=== PATIENT | male | born 1970 | race Caucasian/White ===

== ENCOUNTER 2023-03-14 19:36 | Emergency (ER) | payer OTHER, SELFPAY ==
[2023-03-14 19:41] VITALS: BP 156/87; PULSE 73; RESP 16; TEMP 36.7; O2SAT 98; BMI 34.7
--- NOTE | 2023-03-14 19:51 | CT_ITS ---
The [address] [address] Patient Name: FERDINAND BAKER MRN: [id number] date: 1970 Sex: M Assigned Patient Location: ER Current Patient Location: ED.MAIN Accession/Order Number: [id number] Exam Date: 03/14/2023 20:25 Report Date: 03/14/2023 21:12 At the request of: RANGEL DE LA CRUZ Procedure: CT abdomen pelvis w con EXAM: CT abdomen pelvis w con HISTORY: llq pain, h/o diverticulitis COMPARISON: None. TECHNIQUE: Multiple images of the abdomen and pelvis are obtained following the administration of IV contrast material. Coronal and sagittal reformatted sequences are submitted for review. FINDINGS: The lung bases appear clear. The heart size is normal. Patient is post cholecystectomy. Surgical clips are seen in the gallbladder fossa. The liver, spleen, pancreas and bilateral adrenal glands appear unremarkable. Small parapelvic left renal cysts are likely seen. Bilateral kidneys otherwise demonstrate normal size, morphology and contrast enhancement. There is no evidence for hydronephrosis bilaterally. Mild diffuse wall thickening of the urinary bladder is seen, which can be seen with mild inflammatory process. Please correlate clinically. Nonobstructive bowel pattern is seen. Normal-appearing appendix is visualized. Scattered descending and sigmoid colonic diverticula are seen. Mild wall thickening of the descending and sigmoid colon is also seen, which represent mild colitis versus less likely diverticulitis. No significant free fluid or abnormal fluid collection is seen in the abdomen and pelvis. Mild aortic and iliac arterial calcification is seen without aneurysmal dilatation. Abdominal wall and visualized soft tissues appear unremarkable. Mild multilevel degenerative changes of the visualized thoracolumbar spine is seen. IMPRESSION: Scattered descending and sigmoid colonic diverticula are seen. Mild wall thickening of the descending and sigmoid colonic is seen, which represent mild colitis versus less likely mild diverticulitis. Mild wall thickening of the urinary bladder may be seen, which can be seen with mild inflammatory process. Please correlate clinically. Electronically authenticated by: YVONNE MENARD Date: 03/14/2023 21:12
[2023-03-14 19:56] LABS: Basophils Absolute Auto 0.1 10^3/uL (0.0-0.1); Basophils Percent Auto 0.7 % (0.2-2.0); Eosinophils Absolute Auto 0.1 10^3/uL (0.0-0.7); Eosinophils Percent Auto 1.3 % (0.9-7.0); Hematocrit 43.9 % (42.0-54.0); Hemoglobin 15.2 g/dL (14.0-18.0); Immature Granulocytes Abs Auto 0.02 10^3/uL (0.00-0.03); Immature Granulocytes Pct Auto 0.3 % (0.0-0.5); Mean Corpuscular HGB Conc 34.6 g/dL (29.9-35.2); Mean Corpuscular Hemoglobin 30.7 pg (25.9-34.0); Mean Corpuscular Volume 88.7 fL (80.0-94.0); Mean Platelet Volume 9.5 fL (9.5-13.5); Monocytes Absolute Auto 0.3 10^3/uL (0.3-0.8); Monocytes Percent Auto 4.5 % (1.7-12.0); Neutrophils Absolute Auto 5.1 10^3/uL (1.4-6.5); Neutrophils Percent Auto 67.2 % (43.0-75.0); Platelet Count 231 10^3/uL (150-450); Red Blood Count 4.95 10^6/uL (4.70-6.10); Red Cell Distribution Width 11.8 % (11.0-15.0); White Blood Count 7.6 10^3/uL (4.0-11.0)
--- NOTE | 2023-03-14 19:56 | ED_ITS ---
Documented by User: Chary Mahogany 04/11/23 13:08 HPI - Abdominal Pain General Chief Complaint: Abdominal Pain Stated Complaint: ABDOMINAL PAIN Time Seen by Provider: 03/14/23 19:39 Source: patient Mode of arrival: walk-in Limitations: no limitations History of Present Illness HPI narrative: 53 male presents her chief complaint of generalized lower abdominal pain. He does have a history of diverticulitis. States she's had the pain for last 2-3 days. Normal bowel movements today.Patient states she's been eating a lot of junk food a picnic food due to the holidays. He is here is he had generalized aches today was concern for diverticulitis Related Data Home Medications Medication Instructions Recorded Confirmed dextroamphetamine-amphetamine ER 20 mg PO DAILY 03/14/23 03/14/23 20 mg 24hr capsule,extend release mirtazapine 45 mg disintegrating 45 mg PO .hs 03/14/23 03/14/23 tablet (Remeron SolTab) omeprazole 40 mg capsule,delayed 40 mg PO DAILY 03/14/23 03/14/23 release temazepam 30 mg capsule 30 mg PO .hs PRN sleep 03/14/23 03/14/23 warfarin 5 mg tablet 5 mg PO DAILY 03/14/23 03/14/23 Previous Rx's Medication Instructions Recorded ondansetron 4 mg disintegrating 4 mg PO Q8H PRN nausea and 03/14/23 tablet vomiting 4 days #14 tabs Allergies Allergy/AdvReac Type Severity Reaction Status Date / Time Penicillins AdvReac Mild Verified 03/14/23 19:48 Review of Systems ROS Narrative All Systems are negative except as noted/marked.All systems reviewed and otherwise negative [facility] Social History Smoking status: Former smoker Exam Narrative Exam Narrative: Nurses note and vital signs reviewed and patient is not hypoxic. General: The patient appears well and in no apparent distress. Patient is resting comfortably on cart. Skin: Warm, dry, no pallor noted. There is no rash noted. Head: Normocephalic, atraumatic Eye: Normal conjunctiva, no drainage, EOMI. PERRL Ears, Nose, Mouth, and Throat: oral mucosa is moist. Nares patent. Mouth without vesicles. Ear canals patent. Tm's without Erythema Cardiovascular: Regular Rate and Rhythm Respiratory: Patient is in no distress, no accessory muscle use, lungs are clear to auscultation, no wheezing, rales or rhonchi Back: non-tender, no CVA tenderness bilaterally to percussion. GI: Distended, obese, Normal bowel sounds, no tenderness to palpation, no masses appreciated. No rebound, guarding, or rigidity noted. Musculoskeletal: The patient has no evidence of calf tenderness, no pitting edema, symmetrical pulses noted bilaterally Neurological: A&O x4, normal speech Psychiatric: Cooperative Constitutional Vital Signs, click to edit/add: Last Vital Signs Temp 98.1 F 03/14/23 19:41 Pulse 73 03/14/23 19:41 Resp 16 03/14/23 19:41 BP 156/87 H 03/14/23 19:41 Pulse Ox 98 03/14/23 19:41 O2 Del Method Room Air 03/14/23 19:41 Course Vital Signs Vital signs: Vital Signs Temperature 98.1 F 03/14/23 19:41 Pulse Rate 73 03/14/23 19:41 Respiratory Rate 16 03/14/23 19:41 Blood Pressure 156/87 H 03/14/23 19:41 Pulse Oximetry 98 03/14/23 19:41 Oxygen Delivery Method Room Air 03/14/23 19:41 Temperature 98.1 F 03/14/23 19:41 Pulse Rate 73 03/14/23 19:41 Respiratory Rate 16 03/14/23 19:41 Blood Pressure 156/87 H 03/14/23 19:41 Pulse Oximetry 98 03/14/23 19:41 Oxygen Delivery Method Room Air 03/14/23 19:41 MDM - Abdominal Pain Lab Data Labs: Lab Results 03/14/23 03/14/23 Range/Units 19:50 20:10 WBC 7.6 (4.0-11.0) 10^3/uL RBC 4.95 (4.70-6.10) 10^6/uL Hgb 15.2 (14.0-18.0) g/dL Hct 43.9 (42.0-54.0) % MCV 88.7 (80.0-94.0) fL MCH 30.7 (25.9-34.0) pg MCHC 34.6 (29.9-35.2) g/dL RDW 11.8 (11.0-15.0) % Plt Count 231 (150-450) 10^3/uL MPV 9.5 (9.5-13.5) fL Neut % (Auto) 67.2 (43.0-75.0) % Lymph % (Auto) 26.0 (20.5-60.0) % [place] % (Auto) 4.5 (1.7-12.0) % Eos % (Auto) 1.3 (0.9-7.0) % Baso % (Auto) 0.7 (0.2-2.0) % Neut # (Auto) 5.1 (1.4-6.5) 10^3/uL Lymph # (Auto) 2.0 (1.2-3.8) 10^3/uL [place] # (Auto) 0.3 (0.3-0.8) 10^3/uL Eos # (Auto) 0.1 (0.0-0.7) 10^3/uL Baso # (Auto) 0.1 (0.0-0.1) 10^3/uL Abs Immat Gran (auto) 0.02 (0.00-0.03) 10^3/uL Imm/Tot Granulo (auto) 0.3 (0.0-0.5) % Sodium 137 (136-145) mmol/L Potassium 3.6 (3.5-5.1) mmol/L Chloride 104 (98-107) mmol/L Carbon Dioxide 26.8 (21.0-32.0) mmol/L Anion Gap 9.8 BUN 14.0 (7.0-18.0) mg/dL Creatinine 0.99 (0.70-1.30) mg/dL Est GFR ( Amer) >60 (>=60) Est GFR (Non-Af Amer) >60 (>=60) BUN/Creatinine Ratio 14.1 Glucose 94 (74-106) mg/dL Lactate 0.6 (0.4-2.0) mmol/L Calcium 8.8 (8.5-10.1) mg/dL Total Bilirubin 0.4 (0.2-1.0) mg/dL AST 19 (15-37) U/L ALT 31 (16-63) U/L Alkaline Phosphatase 86 (46-116) U/L Troponin I High Sens <4.0 L (4.0-76.1) pg/mL Total Protein 7.6 (6.4-8.2) g/dL Albumin 3.8 (3.4-5.0) g/dL Globulin 3.8 g/dL Albumin/Globulin Ratio 1.0 Lipase 158.0 (73.0-393.0) U/L Urine Color Lt. yellow (YELLOW) Urine Clarity Clear (CLEAR) Urine pH 6.5 (5.0-9.0) Ur Specific [place] 1.015 (1.005-1.025) Urine Protein Negative (NEG/TRACE) mg/dL Urine Glucose (UA) Negative (NEGATIVE) mg/dL Urine Ketones Negative (NEGATIVE) mg/dL Urine Occult Blood Negative (NEGATIVE) Urine Nitrite Negative (NEGATIVE) Urine Bilirubin Negative (NEGATIVE) Urine Urobilinogen 0.2 (0.2-1.0) EU/dL Ur Leukocyte Esterase Negative (NEGATIVE) Urine RBC 0-2 (0-2) #/HPF Urine WBC 0-2 A (NONE SEEN) #/HPF Ur Squamous Epith Cells None seen (NONE/RARE) #/LPF Urine Crystals None seen (None Seen) #/HPF Urine Bacteria None seen (NONE SEEN) #/HPF Urine Casts None seen (NONE SEEN) #/LPF Urine Mucus None seen (NONE SEEN) Ur Culture Indicated? No Discharge Plan Discharge Chief Complaint: Abdominal Pain Clinical Impression: Gastritis, Abdominal pain, Diverticulitis Patient Disposition: Home, Self-Care Time of Disposition Decision: 20:58 Prescriptions / Home Meds: New ondansetron 4 mg tablet,disintegrating 4 mg PO Q8H PRN (Reason: nausea and vomiting) 4 Days Qty: 14 0RF No Action dextroamphetamine-amphetamine 20 mg capsule,extended release 24hr 20 mg PO DAILY mirtazapine [Remeron SolTab] 45 mg tablet,disintegrating 45 mg PO .hs omeprazole 40 mg capsule,delayed release(DR/EC) 40 mg PO DAILY temazepam 30 mg capsule 30 mg PO .hs PRN (Reason: sleep) warfarin 5 mg tablet 5 mg PO DAILY Instructions: Gastritis (ED), Diverticulitis (ED), Diverticulitis Diet (ED) Stand Alone Forms: Portal Instructions Referrals: Physician,Non-Staff, MD [Primary Care Provider] - 1 week Discharge Date/Time: 03/14/23 21:46 Documented by User: Dirk Mendoza MD 03/14/23 21:30 HPI - Abdominal Pain General Chief Complaint: Abdominal Pain Stated Complaint: ABDOMINAL PAIN Time Seen by Provider: 03/14/23 19:39 Related Data Home Medications Medication Instructions Recorded Confirmed dextroamphetamine-amphetamine ER 20 mg PO DAILY 03/14/23 03/14/23 20 mg 24hr capsule,extend release mirtazapine 45 mg disintegrating 45 mg PO .hs 03/14/23 03/14/23 tablet (Remeron SolTab) omeprazole 40 mg capsule,delayed 40 mg PO DAILY 03/14/23 03/14/23 release temazepam 30 mg capsule 30 mg PO .hs PRN sleep 03/14/23 03/14/23 warfarin 5 mg tablet 5 mg PO DAILY 03/14/23 03/14/23 Previous Rx's Medication Instructions Recorded ondansetron 4 mg disintegrating 4 mg PO Q8H PRN nausea and 03/14/23 tablet vomiting 4 days #14 tabs Allergies Allergy/AdvReac Type Severity Reaction Status Date / Time Penicillins AdvReac Mild Verified 03/14/23 19:48 PFSH PFSH Social History Smoking status: Former smoker Exam Constitutional Vital Signs, click to edit/add: Last Vital Signs Temp 98.1 F 03/14/23 19:41 Pulse 73 03/14/23 19:41 Resp 16 03/14/23 19:41 BP 156/87 H 03/14/23 19:41 Pulse Ox 98 03/14/23 19:41 O2 Del Method Room Air 03/14/23 19:41 Course Vital Signs Vital signs: Vital Signs Temperature 98.1 F 03/14/23 19:41 Pulse Rate 73 03/14/23 19:41 Respiratory Rate 16 03/14/23 19:41 Blood Pressure 156/87 H 03/14/23 19:41 Pulse Oximetry 98 03/14/23 19:41 Oxygen Delivery Method Room Air 03/14/23 19:41 Temperature 98.1 F 03/14/23 19:41 Pulse Rate 73 03/14/23 19:41 Respiratory Rate 16 03/14/23 19:41 Blood Pressure 156/87 H 03/14/23 19:41 Pulse Oximetry 98 03/14/23 19:41 Oxygen Delivery Method Room Air 03/14/23 19:41 MDM - Abdominal Pain MDM Narrative Medical decision making narrative: care transferred at change of PA shift. CT pending and returned with findings of likely mild diverticulitis. Patient informed of the diagnosis and prescribed Augmentin. he is to follow up with his family doctor Lab Data Labs: Lab Results 03/14/23 03/14/23 Range/Units 19:50 20:10 WBC 7.6 (4.0-11.0) 10^3/uL RBC 4.95 (4.70-6.10) 10^6/uL Hgb 15.2 (14.0-18.0) g/dL Hct 43.9 (42.0-54.0) % MCV 88.7 (80.0-94.0) fL MCH 30.7 (25.9-34.0) pg MCHC 34.6 (29.9-35.2) g/dL RDW 11.8 (11.0-15.0) % Plt Count 231 (150-450) 10^3/uL MPV 9.5 (9.5-13.5) fL Neut % (Auto) 67.2 (43.0-75.0) % Lymph % (Auto) 26.0 (20.5-60.0) % [place] % (Auto) 4.5 (1.7-12.0) % Eos % (Auto) 1.3 (0.9-7.0) % Baso % (Auto) 0.7 (0.2-2.0) % Neut # (Auto) 5.1 (1.4-6.5) 10^3/uL Lymph # (Auto) 2.0 (1.2-3.8) 10^3/uL [place] # (Auto) 0.3 (0.3-0.8) 10^3/uL Eos # (Auto) 0.1 (0.0-0.7) 10^3/uL Baso # (Auto) 0.1 (0.0-0.1) 10^3/uL Abs Immat Gran (auto) 0.02 (0.00-0.03) 10^3/uL Imm/Tot Granulo (auto) 0.3 (0.0-0.5) % Sodium 137 (136-145) mmol/L Potassium 3.6 (3.5-5.1) mmol/L Chloride 104 (98-107) mmol/L Carbon Dioxide 26.8 (21.0-32.0) mmol/L Anion Gap 9.8 BUN 14.0 (7.0-18.0) mg/dL Creatinine 0.99 (0.70-1.30) mg/dL Est GFR ( Amer) >60 (>=60) Est GFR (Non-Af Amer) >60 (>=60) BUN/Creatinine Ratio 14.1 Glucose 94 (74-106) mg/dL Lactate 0.6 (0.4-2.0) mmol/L Calcium 8.8 (8.5-10.1) mg/dL Total Bilirubin 0.4 (0.2-1.0) mg/dL AST 19 (15-37) U/L ALT 31 (16-63) U/L Alkaline Phosphatase 86 (46-116) U/L Troponin I High Sens <4.0 L (4.0-76.1) pg/mL Total Protein 7.6 (6.4-8.2) g/dL Albumin 3.8 (3.4-5.0) g/dL Globulin 3.8 g/dL Albumin/Globulin Ratio 1.0 Lipase 158.0 (73.0-393.0) U/L Urine Color Lt. yellow (YELLOW) Urine Clarity Clear (CLEAR) Urine pH 6.5 (5.0-9.0) Ur Specific [place] 1.015 (1.005-1.025) Urine Protein Negative (NEG/TRACE) mg/dL Urine Glucose (UA) Negative (NEGATIVE) mg/dL Urine Ketones Negative (NEGATIVE) mg/dL Urine Occult Blood Negative (NEGATIVE) Urine Nitrite Negative (NEGATIVE) Urine Bilirubin Negative (NEGATIVE) Urine Urobilinogen 0.2 (0.2-1.0) EU/dL Ur Leukocyte Esterase Negative (NEGATIVE) Urine RBC 0-2 (0-2) #/HPF Urine WBC 0-2 A (NONE SEEN) #/HPF Ur Squamous Epith Cells None seen (NONE/RARE) #/LPF Urine Crystals None seen (None Seen) #/HPF Urine Bacteria None seen (NONE SEEN) #/HPF Urine Casts None seen (NONE SEEN) #/LPF Urine Mucus None seen (NONE SEEN) Ur Culture Indicated? No Discharge Plan Discharge Chief Complaint: Abdominal Pain Clinical Impression: Gastritis, Abdominal pain, Diverticulitis Patient Disposition: Home, Self-Care Time of Disposition Decision: 20:58 Prescriptions / Home Meds: New ondansetron 4 mg tablet,disintegrating 4 mg PO Q8H PRN (Reason: nausea and vomiting) 4 Days Qty: 14 0RF No Action dextroamphetamine-amphetamine 20 mg capsule,extended release 24hr 20 mg PO DAILY mirtazapine [Remeron SolTab] 45 mg tablet,disintegrating 45 mg PO .hs omeprazole 40 mg capsule,delayed release(DR/EC) 40 mg PO DAILY temazepam 30 mg capsule 30 mg PO .hs PRN (Reason: sleep) warfarin 5 mg tablet 5 mg PO DAILY Instructions: Gastritis (ED), Diverticulitis (ED), Diverticulitis Diet (ED) Stand Alone Forms: Portal Instructions Referrals: Physician,Non-Staff, MD [Primary Care Provider] - 1 week Discharge Date/Time: 03/14/23 21:46
[2023-03-14] MEDS: 0.9 % SODIUM CHLORIDE 1,000 ML 1000 ML IV (20:03)
[2023-03-14] MEDS: ONDANSETRON PF 4 MG/2 ML VIAL IV (20:05)
[2023-03-14 20:14] LABS: Lactate/Lactic Acid 0.6 mmol/L (0.4-2.0)
[2023-03-14 20:17] LABS: Bilirubin Urine NEGATIVE (NEGATIVE); Blood Urine NEGATIVE (NEGATIVE); Clarity Urine CLEAR (CLEAR); Color Urine LT. YELLOW (YELLOW); Glucose Urine UA NEGATIVE (NEGATIVE); Ketones Urine NEGATIVE (NEGATIVE); Leukocyte Esterase Urine NEGATIVE (NEGATIVE); Nitrite Urine NEGATIVE (NEGATIVE); Protein Urine NEGATIVE (NEG/TRACE); Specific Gravity Urine 1.015 (1.005-1.025); Urobilinogen Urine 0.2 EU/dL (0.2-1.0); pH Urine 6.5 (5.0-9.0)
[2023-03-14 20:20] LABS: Alanine Aminotransferase 31 U/L (16-63); Albumin Level 3.8 g/dL (3.4-5.0); Alkaline Phosphatase 86 U/L (46-116); Anion Gap 9.8; Aspartate Amino Transferase 19 U/L (15-37); BUN Creatinine Ratio 14.1; Bilirubin Total 0.4 mg/dL (0.2-1.0); Calcium 8.8 mg/dL (8.5-10.1); Carbon Dioxide 26.8 mmol/L (21.0-32.0); Chloride 104 mmol/L (98-107); Estimated GFR (African America >60 (>=60); Estimated GFR (Non-African Ame >60 (>=60); Globulin 3.8 g/dL; Glucose 94 mg/dL (74-106); Potassium 3.6 mmol/L (3.5-5.1); Sodium 137 mmol/L (136-145); Total Protein 7.6 g/dL (6.4-8.2); Troponin I High Sensitivity <4.0 pg/mL (4.0-76.1)
--- NOTE | 2023-03-14 20:23 | PC.NURSE ---
patient states he began having generalized abdominal pain yesterday that has gotten increasingly more painful into today. states the pain moves around his entire abdomen, more severe in right upper quadrant. states it feels like gas pain or gas bubbles moving around . tried Bentyl but no relief in pain. states pain increases with movement. history of gallbladder removal in october and states he had complications after surgery including bleeding into abdomen . denies any blood in stool, states he did have one episode of diarrhea this morning.
[2023-03-14 20:26] LABS: Bacteria Urine NONE SEEN #/HPF (NONE SEEN); Cast Seen? NONE SEEN #/LPF (NONE SEEN); Crystals Seen? None Seen #/HPF (None Seen); Mucus Urine NONE SEEN (NONE SEEN); RBC Urine 0-2 #/HPF (0-2); Squamous Epithelial Cell Urine NONE SEEN #/LPF (NONE/RARE); Urine Culture Indicated NO; WBC Urine 0-2 #/HPF (NONE SEEN)
== END 2023-03-14 21:46 | disposition home or self-care (01) ==
PROVIDERS: Physician Assistant; Emergency Provider Internal Medicine
DX: K29.70 Gastritis, unspecified, without bleeding (principal); R10.9 Unspecified abdominal pain; K57.32 Diverticulitis of large intestine without perforation or abscess without bleeding; Z79.899 Other long term (current) drug therapy; Z79.01 Long term (current) use of anticoagulants; Z87.891 Personal history of nicotine dependence
CPT/HCPCS: 36415; 74177; 80053; 81001; 83605; 83690; 84484; 85025; 96361; 96374; 99285; Q9967

== ENCOUNTER 2023-11-03 15:40 | Outpatient (OUT) | payer OTHER, SELFPAY ==
--- NOTE | 2023-11-03 16:10 | XR_ITS ---
[address] [address] Patient Name: FERDINAND BAKER MRN: [id number] date: 1970 Sex: M Assigned Patient Location: [facility] Current Patient Location: Accession/Order Number: [id number] Exam Date: 11/03/2023 16:05 Report Date: 11/04/2023 07:48 At the request of: JOCELYN LAWSON Procedure: XR abdomen 1V EXAMINATION: XR abdomen 1V HISTORY: abdominal bloating R14.0 COMPARISON: 03/14/2023 CT exam FINDINGS: BOWEL GAS PATTERN: No abnormal dilation or deviation. CALCIFICATIONS: None significant. OTHER: Degenerative changes of the spine. No abnormal gaseous collections. XR/XR abdomen 1V IMPRESSION: Nonobstructive bowel gas pattern Electronically authenticated by: FERDINAND BRICE Date: 11/04/2023 07:48
== END 2023-11-03 15:41 | disposition home or self-care (01) ==
PROVIDERS: PCP Family Medicine; Visit Provider Family Medicine
DX: R14.0 Abdominal distension (gaseous) (principal)
CPT/HCPCS: 74018

== ENCOUNTER 2024-02-25 10:49 | Outpatient (OUT) | payer OTHER, BC, SELFPAY ==
--- NOTE | 2024-02-25 10:52 | US_ITS ---
The [address] [address] Patient Name: FERDINAND BAKER MRN: [id number] date: 1970 Sex: M Assigned Patient Location: [place] Current Patient Location: Accession/Order Number: [id number] Exam Date: 02/25/2024 10:58 Report Date: 02/26/2024 11:34 At the request of: JOCELYN LAWSON Procedure: US soft tissue head and neck EXAMINATION: US soft tissue head and neck HISTORY: Swelling Right Side Of Cheek, Cheek Mass COMPARISON: No relevant comparison available. FINDINGS: Several lesions within the right parotid gland; nonspecific but suggestive of lymph nodes. The largest is within the superior aspect of the gland, 15 x 12 x 8 mm. Next largest is within mid aspect of the gland, 12 x 7 x 5 mm. US/US soft tissue head and neck IMPRESSION: 1.Several nonspecific lesions within the right parotid gland corresponding to patient's palpable lump. Appearance is suggestive of lymph nodes, however, ultrasound-guided fine-needle aspiration should be considered. Electronically authenticated by: TOSHIA [place] Date: 02/26/2024 11:34
--- NOTE | 2024-02-25 10:54 | XR_ITS ---
The [address] [address] Patient Name: FERDINAND BAKER MRN: [id number] date: 1970 Sex: M Assigned Patient Location: US Current Patient Location: [place] Accession/Order Number: [id number] Exam Date: 02/25/2024 11:10 Report Date: 02/26/2024 11:39 At the request of: JOCELYN LAWSON Procedure: XR lumbar spine 2-3V EXAMINATION: XR lumbar spine 2-3V HISTORY: Lumbar Back Pain COMPARISON: CT abdomen pelvis 03/14/2023 FINDINGS: BONES: Minimal right convex curvature of lower lumbar spine and slight straightening of normal lordotic curvature. No fracture, spondylolisthesis, bone lesion. Mild to moderate degenerative facet arthropathy L4-5, L5-S1. DISC SPACES: Moderate narrowing L4-5 with posterior disc osteophyte complexes causing central canal and foraminal narrowing. Mild narrowing L3-4 and L5-S1. PARASPINOUS: Negative. No paraspinous abnormality is seen. OTHER: Negative. XR/XR lumbar spine 2-3V IMPRESSION: 1. Moderate degenerative changes of lower lumbar spine with central canal and foraminal narrowing at L4-5; not appreciably changed allowing for differences in technique. Electronically authenticated by: TOSHIA [place] Date: 02/26/2024 11:39
--- OUTSIDE RECORDS SUMMARY | 2024-02-25 10:56 | XMS_ITS | CCD ---
Author Organization [facility] Care Team Providers Care Industrial Electrician Name Role Phone Jocelyn Lawson Primary Care Provider JOSE CHAIREZ Referring Unavailable LAWSON, JOCELYN Primary Care Unavailable CARA, HIRA Referring Unavailable LAWSON, JOCELYN Primary Care Unavailable LULU, JOCELYN Primary Care Unavailable ROBSON BLACKWOOD Attending Unavailable LAWSON, JOCELYN Primary Care Unavailable ISABELLE ALICEA Attending Unavailable CARA, HIRA Referring Unavailable JOCELYN LAWSON Primary Care Unavailable Jocelyn Lawson MD Primary Care Provider Izabel Hansen Unavailable CARA, HIRA Referring Unavailable LAWSON, JOCELYN Primary Care Unavailable CARA, HIRA Referring Unavailable LAWSON, JOCELYN Primary Care Unavailable CARA, HIRA Referring Unavailable LAWSON, JOCELYN Primary Care Unavailable CARA, HIRA Referring Unavailable LAWSON, JOCELYN Primary Care Unavailable CARA, HIRA Referring Unavailable LAWSON, JOCELYN Primary Care Unavailable CARA, HIRA Referring Unavailable LAWSON, JOCELYN Primary Care Unavailable CARA, HIRA Referring Unavailable LAWSON, JOCELYN Primary Care Unavailable Jocelyn Lawson Unavailable DR JOCELYN LAWSON Admitting Unavailable LULU, DR JOCELYN Contreras Attending Unavailable LULU, DR JOCELYN Contreras Primary Care Unavailable DR JOCELYN LAWSON Consulting Unavailable LULU, DR JOCELYN Contreras Admitting Unavailable LAWSON, DR JOCELYN Contreras Attending Unavailable LULU, DR JOCELYN Contreras Primary Care Unavailable LULU, DR JOCELYN Contreras Consulting Unavailable Jocelyn Lawson MD Primary Care Provider Unavailable Primary Care Provider UnavailJocelyn Bermudez MD Primary Care Provider [phone] MARKUS HORTON Attending Unavailable JOCELYN LAWSON Referring Unavailable JOCELYN LAWSON Primary Care Unavailable JOCELYN LAWSON Referring Unavailable JOCELYN LAWSON Primary Care Unavailable ALTON, REHAB Referring Unavailable LAWSON, JOCELYN E Primary Care Unavailable SERVICE, JOBST Referring Unavailable LAWSON, JOCELYN E Primary Care Unavailable SERVICE, JOBST Referring Unavailable LAWSON, JOCELYN E Primary Care Unavailable MARKUS HORTON Attending Unavailable OOSTRAMARKUS Referring Unavailable LAWSON, JOCELYN E Primary Care Unavailable SERVICE, JOBST Referring Unavailable LAWSON, JOCELYN E Primary Care Unavailable SERVICE, JOBST Referring Unavailable LAWSON, JOCELYN E Primary Care Unavailable SERVICE, JOBST Referring Unavailable LAWSON, JOCELYN E Primary Care Unavailable SERVICE, JOBST Referring Unavailable LAWSON, JOCELYN E Primary Care Unavailable SERVICE, JOBST Referring Unavailable LAWSON, JOCELYN E Primary Care Unavailable SERVICE, JOBST Referring Unavailable LAWSON, JOCELYN E Primary Care Unavailable SERVICE, JOBST Referring Unavailable LAWSON, JOCELYN E Primary Care Unavailable LAWSON, JOCELYN E Primary Care Unavailable FRANK CARCAMO Attending Unavailable SERVICE, JOBST Referring Unavailable LAWSON, JOCELYN E Primary Care Unavailable SERVICE, JOBST Referring Unavailable LAWSON, JOCELYN E Primary Care Unavailable SERVICE, JOBST Referring Unavailable LAWSON, JOCELYN E Primary Care Unavailable LAKSHMI CORREA Attending Unavailable LAWSON, JOCELYN E Referring Unavailable LAWSON, JOCELYN E Primary Care Unavailable LAWSON, JOCELYN E Referring Unavailable LAWSON, JOCELYN E Primary Care Unavailable CASTRO RESTREPO Attending Unavailable ALTON, REHAB Referring Unavailable LAWSON, JOCELYN E Primary Care Unavailable LAWSON, JOCELYN E Primary Care Unavailable LIBIA CLEANING Attending Unavailable MINNIE, FELIBERTO Attending Unavailable HARTMAN, FELIBERTO Referring Unavailable LAWSON, JOCELYN E Primary Care Unavailable SERVICE, JOBST Referring Unavailable LAWSON, JOCELYN E Primary Care Unavailable Allergies Allergy Classification Reported Allergen(s) Allergy Type Date of Onset Reaction(s) Facility (7 sources) Penicillins Propensity to adverse reactions to drug 12-06-19 11 [facility] Phone: (20 sources) Penicillin V; Translations: [PENICILLIN] Drug Allergy 12-20-19 21 [facility] Other (1 source) Penicillins Drug allergy (disorder) 01-18-20 13 [facility] Repository (1 source) Darvocet-N 100 Drug allergy (disorder) 11-20-19 16 [facility] (15 sources) Acetaminophen / oxyCODONE; Translations: [OXYCODONE-ACETAM INOPHEN] Drug Allergy 12-20-19 Nausea And Vomiting Carbon Salon (15 sources) Adhesive agent; Translations: [ADHESIVE] Propensity to adverse reactions to drug [facility] Current Medications Medication Drug Class(es) Dates Sig (Normalized) Sig (Original) [id number] 200 actuat albuterol 0.09 mg/actuat metered dose inhaler (4 sources) beta2-Adrenergic Agonist Start: 11-26-2023 Albuterol Sulfate Active 0 .ROUTE .COMPLEX 8.5 November 26, 2023 8:30am USE 2 PUFFS EVERY 4 HRS NEEDED Start: 11-03-2023 End: 11-26-2023 take 2 puff(s) by inhalation every four hours as needed Albuterol Sulfate Discontinued 2 PUFF INHALATION Every 4 hours November 03, 2023 1:00am November 26, 2023 8:30am [facility] puff Inhalation every 4 hrs prn; Note: Source Status: Start; Refills: 1; Qty: 1 Each; Provider: Lulu Contreras Start: 09-30-2023 take 2 puff(s) by in halation every four hours as needed Albuterol Sulfate HFA 108 (90 Base) MCG/ACT 2 puff Inhalation every 4 hrs prn Sep, Active amoxicillin 250 mg oral capsule (1 source) Penicillin-class Antibacterial take 2 capsules by mouth every twelve hours Amoxicillin 250 MG 2 capsules Orally two times a day Active Amphetamine / Dextroamphetamine (1 source) Central Nervous System Stimulant 24 hr amphetamine aspartate 5 mg / amphetamine sulfate 5 mg / dextroamphetamine saccharate 5 mg / dextroamphetamine sulfate 5 mg extended release oral capsule (20 sources) Central Nervous System Stimulant Start: 2018 take 1 capsule by mouth every twenty-four hours in the morning amphetamine-dextroa mphetamine XR (ADDERALL XR) 20 mg 24 hr capsule Indications: attention-deficit hyperactivity disorder Take 1 capsule (20 mg total) by mouth in the morning. Indications: attention deficit disorder with hyperactivity. 0 01/15/2019 Active take 1 capsule by mo h once daily in the morning amphetamine-dextroamphetamine XR (ADDERA LL XR) 20 mg 24 hr capsule Take 1 capsule (20 mg total) by mouth every morning. Max Daily Amount: 20 mg 0 Active take 1 tablet by dheeraj th once daily amphetamine-dextroamphetamine (ADDERALL) 20 MG tablet Take 20 mg by mouth daily . 0 Active azelastine hydrochloride 0.137 mg/actuat metered dose nasal spray (8 sources) Histamine-1 Receptor Antagonist Start: 09-04-2023 take 2 spray(s) nasal route in the morning azelastine (ASTELIN) 137 mcg (0.1 %) nasal spray Indications: Chronic rhinitis Administer 2 sprays into each nostril in the morning and 2 sprays before bedtime. Use in each nostril as directed. 30 mL 12 09/04/2023 Active azithromycin 250 mg oral tablet (1 source) Macrolide Antimicrobial Start: 09-30-2023 Azithromycin 250 MG as directed Orally 2 tabs po today, then 1 tab daily x 4 more days for 5 Sep, Active dicyclomine hydrochloride 20 mg oral tablet (5 sources) Anticholinergic Start: 11-03-2023 take 20 mg by mouth three times daily Dicyclomine Active 20 MG PO Three times daily November 03, 2023 1:00am Start: 10-31-2023 take 1 tablet by dheeraj th every six hours as needed dicyclomine (BENTYL) 20 mg tablet Take 1 tablet (20 mg total) by mouth every 6 (six) hours as needed (Abdominal cramping). 20 tablet 0 10/31/2023 Active 1 ml enoxaparin sodium 150 mg/ml prefilled syringe (1 source) Low Molecular Weight Heparin Start: 12-08-2023 inject 0.86 mL by subcutaneous injection once enoxaparin (LOVENOX) 150 mg/mL injection Indications: History of DVT (deep vein thrombosis) , Antiphospholipid syndrome ([facility]) Inject 0.86 mL (129 mg total) under the skin every 12 (twelve) hours. [facility] (MTM) 20 mL 0 12/08/2023 Active fluticasone propionate 0.05 mg/actuat metered dose nasal spray (16 sources) Corticosteroid Start: 07-19-2022 take 1 spray(s) nasal route once daily fluticasone propionate (FLONASE) 50 mcg/actuation nasal spray Indications: Chronic sinusitis, unspecified SPRAY 1 SPRAY INTO EACH NOSTRIL EVERY DAY 48 mL 4 07/19/2022 Active Flonase Active hyoscyamine sulfate 0.125 mg oral tablet (11 sources) Start: 01-14-2023 take 1 tablet by mouth every four hours as needed hyoscyamine (ANASPAZ,LEVSIN) 0.125 mg tablet TAKE 1 TABLET BY MOUTH EVERY 4H NEEDED FOR 5 DAYS 0 01/14/2023 Active loratadine 10 mg oral tablet (20 sources) Start: 11-03-2023 take 1 tablet by mouth once daily Loratadine (Claritin) 10 mg tablet Active 10 MG PO Daily November 03, 2023 1:00am take 1 tablet by mouth in the mo rning loratadine (CLARITIN) 10 mg tablet Indications: allergic rhinitis Take 1 tablet (10 mg total) by mouth in the morning. Indications: inflammation of the nose due to an allergy. 0 Active Claritin Active losartan potassium 50 mg oral tablet (2 sources) Angiotensin 2 Receptor Calvin Start: 12-24-2023 End: 01-16-2024 take 50 mg by mouth once daily Losartan Active 50 MG PO daily January 16, 2024 12:05pm meclizine hydrochloride 25 mg oral tablet (8 sources) Antiemetic Start: 08-08-2023 take 1 tablet by mouth three times daily as needed for dizziness meclizine (ANTIVERT) 25 mg tablet Take 1 tablet (25 mg total) by mouth 3 (three) times a day as needed for dizziness. 20 tablet 0 08/08/2023 Active MEN'S MULTI-VITAMIN ORAL (8 sources) MEN'S MULTI-VITAMIN ORAL Take by mouth daily. 0 Active 24 hr metoprolol succinate 50 mg extended release oral tablet (12 sources) beta-Adrenergic Calvin Start: 10-27-2023 take 1 tablet by mouth every twenty-four hours in the morning metoprolol succinate XL (TOPROL XL) 50 mg 24 hr tablet Take 1 tablet (50 mg total) by mouth in the morning. 0 10/27/2023 Active Start: 10-22-2023 End: 10-22-2023 take 1 tablet by mouth once daily Metoprolol Succinate Active 50 MG PO Daily October 22, 2023 2:19pm [facility] tablet Orally Once a day; Note: Source Status: Refill; Provider: Lulu Contreras Start: 09-25-2023 End: 12-03-2023 take 2 tablets by mouth every twenty-four hours in the morning metoprolol succinate XL (TOPROL XL) 25 mg 24 hr tablet Take 2 tablets (50 mg total) by mouth in the morning. 0 09/25/2023 12/03/2023 Discontinued (Dose adjustment) Start: 09-25-2023 take 1 tablet by dheeraj th every twenty-four hours Metoprolol Succinate ER 25 MG 1 tablet Orally Once a day for 30 day(s) Sep, Active metroNIDAZOLE 0.01 mg/mg topical gel (12 sources) Nitroimidazole Antimicrobial Start: 11-03-2023 Metronidazole Active 1 APPLIC TOPICAL Daily November 03, 2023 1:00am [facility] application Externally Once a day; Note: Source Status: Taking; Refills: 1; Provider: Lulu Contreras Start: 11-18-2020 take 1 tablet by dheeraj th twice daily at mealtime metroNIDAZOLE (FLAGYL) 500 MG tablet Take 1 tablet by mouth 2 times daily Take with Food. Do NOT drink alcohol. 14 tablet 0 11/18/2020 Active Metrogel 1 % 1 a pplication Externally Once a day for 30 days Active mirtazapine 45 mg disintegrating oral tablet (20 sources) Start: 01-20-2019 take 1 tablet by mouth once daily at bedtime Mirtazapine Active MG PO November 03, 2023 1:00am [employer]Text[facility] tablet on the tongue and allow to dissolve at bedtime Orally Once a day; Note: Source Status: Taking; Provider: Lulu Casillas ( ) Gene Harvey-Shanae ng omeprazole 40 mg delayed release oral capsule (20 sources) Proton Pump Inhibitor Start: 01-14-2023 End: 01-22-2024 take 1 capsule by mouth once daily Omeprazole Active 40 MG PO Daily January 22, 2024 11:03am [facility] capsule 30 minutes before morning meal Orally Once a day; Note: Source Status: Taking; Refills: 3; Provider: Lulu MehtaLOSEMyesha Not-Federico ing ondansetron 4 mg oral tablet (17 sources) Serotonin-3 Receptor Antagonist Start: 11-07-2022 take 1 tablet by mouth every eight hours as needed for nausea and vomiting ondansetron (ZOFRAN) 4 mg tablet Take 1 tablet (4 mg total) by mouth every 8 (eight) hours as needed for nausea or vomiting. 12 tablet 0 11/07/2022 Active Start: 10-25-2022 take 1 tablet by dheeraj th every eight hours as needed for nausea and vomiting ondansetron ODT (ZOFRAN ODT) 4 mg disintegrating tablet Dissolve 1 tablet (4 mg total) on tongue every 8 (eight) hours as needed for nausea or vomiting. 10 tablet 0 10/25/2022 Active Zofran Active pantoprazole 40 mg delayed release oral tablet (4 sources) Proton Pump Inhibitor take 1 tablet by mouth every twenty-four hours Pantoprazole Sodium 40 MG 1 tablet Orally Once a day Active rivaroxaban 20 mg oral tablet (7 sources) Factor Xa Inhibitor rivaroxaban (XARELTO) 20 MG TABS tablet Take 20 mg by mouth 0 Active simethicone 125 mg oral capsule (4 sources) Start: 10-31-19 take 1 capsule by mouth four times daily as needed simethicone (MYLICON,GAS-X) 125 mg capsule Take 1 capsule (125 mg total) by mouth 4 (four) times a day as needed (Bloating). 28 each 0 10/31/2023 Active 5 ml sodium chloride 9 mg/ml injection (3 sources) Start: 02-01-20 sodium chloride flush 0.9 % injection 10 mL Start: 12-11-2020 sodium chlorid e flush 0.9 % injection 10 mL Start: 12-11-2020 End: 12-11-2020 0.9 % sodium chloride bolus sulfamethoxazole 800 mg / trimethoprim 160 mg oral tablet (1 source) Dihydrofolate Reductase Inhibitor Antibacterial, Sulfonamide Antimicrobial Start: 07-09-2023 take 1 tablet by mouth every twelve hours Bactrim DS 800-160 MG 1 tablet Orally Twice a day for 10 day(s) Jul, Active topiramate 25 mg oral tablet (5 sources) Start: 09-19-2023 topiramate (TOPAMAX) 25 mg tablet Indications: Chronic mixed headache syndrome Take 1 tablet (25 mg) twice daily for 2 weeks, then increase to 2 tablets (50 mg) twice daily 120 tablet 2 09/19/2023 Active warfarin sodium 5 mg oral tablet (20 sources) Vitamin K Antagonist Start: 08-25-2023 take 1 tablet by mouth once daily Warfarin Active 1 TAB PO Daily November 03, 2023 1:00am [employer] tablet Orally Once a day; Note: Source Status: Taking; Provider: Lulu Casillas ( ) Completed/Discontinued Medications Medication Drug Class(es) Dates Sig (Normalized) Sig (Original) iohexol (OMNIPAQUE 240) injection 50 mL (1 source) Start: 12-11-2020 End: 12-11-2020 iohexol (OMNIPAQUE 240) injection 50 mL iopamidol (ISOVUE-370) 76 % injection 100 mL (1 source) Start: 12-11-2020 End: 12-11-2020 iopamidol (ISOVUE-370) 76 % injection 100 mL ketoconazole 20 mg/ml topical cream (7 sources) Azole Antifungal Start: 09-04-2023 End: 10-02-2023 ketoconazole (NIZORAL) 2 % cream Indications: Seborrheic dermatitis Apply 1 Application topically in the morning and 1 Application before bedtime. Do all this for 28 days. 30 g 1 09/04/2023 10/02/2023 lisinopril 20 mg oral tablet (8 sources) Angiotensin Converting Enzyme Inhibitor Start: 11-26-2023 End: 12-24-2023 take 1 tablet by mouth once daily Lisinopril Discontinued 0 .ROUTE .COMPLEX 90 November 26, 2023 8:30am December 24, 2023 9:53pm TAKE 1 TABLET BY MOUTH EVERY DAY Start: 10-20-2023 End: 11-26-2023 take 20 mg by mouth once daily Lisinopril Discontinued 20 MG PO Daily November 03, 2023 1:00am November 24, 2023 12:46pm prazosin 1 mg oral capsule (7 sources) alpha-Adrenergic Calvin take 1 capsule by mouth every twenty-four hours Prazosin HCl 1 MG 1 capsule at bedtime Orally Once a day Not-Taking technetium mebrofenin (CHOLETEC) injection 6 millicurie (1 source) Start: 02-01-20 End: 02-01-20 technetium mebrofenin (CHOLETEC) injection 6 millicurie Problems Active Problems Problem Classification Problem Date Documented Da te Episodic/Chronic Cardiac dysrhythmias (3 sources) Cardiac arrhythmia; Translations: [Cardiac arrhythmia, unspecified] Onset: 4 12-03-2023 Chronic Chronic obstructive pulmonary disease and bronchiectasis (1 source) Bronchitis, not specified as acute or chronic Episodic Coagulation and hemorrhagic disorders (20 sources) Antiphospholipid syndrome; Translations: [Antiphospholipid syndrome] Onset: 1 02-16-2021 Chronic Diabetes mellitus without complication (2 sources) Other abnormal glucose; Translations: [OTHER ABNORMAL GLUCOSE] Onset: 3 Episodic Diverticulosis and diverticulitis (11 sources) Diverticulitis; Translations: [Diverticulitis of intestine, part unspecified, without perforation or abscess without bleeding] Chronic E Codes: Adverse effects of medical drugs (1 source) Adverse effect of anticoagulants, initial encounter; Translations: [Adverse effect of anticoagulants, initial encounter] Onset: 4 Episodic Esophageal disorders (11 sources) Gastroesophageal reflux disease without esophagitis; Translations: [Gastro-esophageal reflux disease without esophagitis] Chronic Essential hypertension (9 sources) Essential hypertension; Translations: [Essential (primary) hypertension] Onset: 4 Chronic Gastrointestinal hemorrhage (10 sources) Gastrointestinal hemorrhage; Translations: [Gastrointestinal hemorrhage, unspecified] Episodic Hypertension with complications and secondary hypertension (1 source) Secondary hypertension, unspecified; Translations: [Secondary hypertension, unspecified] Onset: 4 Chronic Nausea and vomiting (10 sources) Nausea; Translations: [Nausea] Episodic Other and unspecified benign neoplasm (10 sources) Polyp of colon; Translations: [Polyp of colon] Episodic Other diseases of veins and lymphatics (1 source) Postthrombotic syndrome without complications of unspecified extremity; Translations: [Postthrombotic syndrome without complications of unspecified extremity] Onset: 3 Chronic Other gastrointestinal disorders (10 sources) Functional diarrhea; Translations: [Functional diarrhea] Episodic Other gastrointestinal disorders (1 source) Gas pain Episodic Other gastrointestinal disorders (1 source) Abdominal bloating; Translations: [Abdominal distension (gaseous)] 11-03-2023 Episodic Other inflammatory condition of skin (4 sources) Rosacea; Translations: [Rosacea, unspecified] Chronic Other inflammatory condition of skin (1 source) Rosacea, unspecified Chronic Other inflammatory condition of skin (1 source) Seborrheic dermatitis; Translations: [Seborrheic dermatitis, unspecified] 09-04-2023 Episodic Other liver diseases (1 source) Elevated liver enzymes level; Translations: [Abnormal levels of other serum enzymes] Episodic Other nutritional; endocrine; and metabolic disorders (9 sources) Excessive thirst; Translations: [Polydipsia] Episodic Other nutritional; endocrine; and metabolic disorders (2 sources) Polydipsia; Translations: [POLYDIPSIA] Onset: 3 Episodic Other screening for suspected conditions (not mental disorders or infectious disease) (1 source) Pancreatic enzyme level above reference range; Translations: [Elevated pancreatic enzyme] Episodic Other skin disorders (1 source) Facial swelling ; Translations: [Localized swelling, mass and lump, head] 02-20-2024 Episodic Other skin disorders (1 source) Lump on face; Translations: [Localized swelling, mass and lump, head] 02-20-2024 Episodic Other skin disorders (2 sources) Localized swelling, mass and lump, head; Translations: [Swelling, mass, or lump in head and neck] 02-20-2024 Episodic Other upper respiratory disease (1 source) Chronic rhinitis; Translations: [Chronic rhinitis] 09-04-2023 Chronic Other upper respiratory disease (1 source) Chronic rhinitis; Translations: [Chronic rhinitis] Onset: 3 Chronic Other upper respiratory infections (20 sources) Chronic sphenoidal sinusitis; Translations: [Chronic sphenoidal sinusitis] Onset: 1 Chronic Other upper respiratory infections (2 sources) Acute upper respiratory infection, unspecified; Translations: [Acute recurrent maxillary sinusitis] Onset: 1 Resolved: 1 Episodic Spondylosis; intervertebral disc disorders; other back problems (2 sources) Low back pain; Translations: [Lumbar back pain] 02-20-2024 Episodic Unclassified (1 source) Upper Abd pain & Chest pain Onset: 4 Unclassified (1 source) New Patient Onset: 4 Unclassified (1 source) Subacute cough; Translations: [Subacute cough] Onset: 4 Unclassified (1 source) Weakness, Chest Tightness Onset: 4 Past or Other Problems Problem Classification Problem Date Documented Date Episodic/Chronic Abdominal pain (7 sources) Right upper quadrant pain; Translations: [Left lower quadrant pain] Onset: 2 Episodic Biliary tract disease (13 sources) Postcholecystectomy syndrome; Translations: [Biliary colic] Onset: 3 Episodic Cardiac dysrhythmias (15 sources) Palpitations; Translations: [Palpitations] Onset: 9 02-10-2019 Episodic Conditions associated with dizziness or vertigo (20 sources) Benign paroxysmal positional vertigo; Translations: [Benign paroxysmal vertigo, bilateral] Onset: 9 02-10-2019 Episodic Esophageal disorders (6 sources) Esophageal disorders; Translations: [Gastroesophageal reflux disease with esophagitis without hemorrhage] Headache; including migraine (12 sources) Chronic mixed headache syndrome; Translations: [Other headache syndrome] Onset: 4 09-19-2023 Episodic Immunizations and screening for infectious disease (1 source) Contact with and (suspected) exposure to other viral communicable diseases Onset: 1 Resolved: 1 Episodic Malaise and fatigue (3 sources) Other fatigue; Translations: [Weakness] Onset: 3 Episodic Mood disorders (12 sources) Mood disorders Onset: 1 07-02-2021 Nonspecific chest pain (15 sources) Chest pain at rest; Translations: [Chest pain, unspecified] Onset: 9 02-10-2019 Episodic Other aftercare (16 sources) Long-term current use of anticoagulant; Translations: [buttermaker (current) use of anticoagulants] Onset: 1 12-25-2020 Episodic Other aftercare (3 sources) buttermaker (current) use of anticoagulants; Translations: [buttermaker (current) use of anticoagulants] Onset: 1 Episodic Other aftercare (1 source) Encounter for therapeutic drug level monitoring; Translations: [Encounter for therapeutic drug level monitoring] Onset: 4 Episodic Other gastrointestinal disorders (1 source) Abdominal distension (gaseous); Translations: [Abdominal distension (gaseous)] Onset: 4 Episodic Phlebitis; thrombophlebitis and thromboembolism (20 sources) Acute deep venous thrombosis of right lower extremity; Translations: [Acute embolism and thrombosis of unspecified deep veins of right lower extremity] Onset: 1 12-22-2020 Episodic Results Test Name Value Interpretation Reference Range Facility PROTIME AND INRon 12-22-2023 INR Coag (PPP) [Relative time] 1.0 {INR} Normal 0.8-1.1 [facility] Comment on above: Performed By: #### P INR #### [facility] ([id number]) [address] [place] [id number] PT Coag (PPP) [Time] 12.0 s Normal 9.8-13.2 [facility] Comment on above: Result Comment: NEW REFERENCE RANGE Performed By: #### P INR #### [facility] ([id number]) [address] [place] [id number] POCT Protime / INRon 024 INR Coag (PPP) [Relative time] 3.7 {INR} Abnormal 0.8 - 1.2 [facility] Interpretation and review of laboratory results Abnormal [facility] BASIC METABOLIC PANLon 10-31 Anion gap [Moles/Vol] 9 mmol/L Normal 5-15 [facility] Comment on above: Performed By: #### B DAKOTA LIVR #### [facility] ([id number]) [address] [place] [address] Calcium [Mass/Vol] 8.7 mg/dL Normal 8.5-10.5 [facility] Comment on above: Performed By: #### B DAKOTA LIVR #### [facility] ([id number]) [address] [place] [address] Chloride [Moles/Vol] 103 mmol/L Normal 98-109 [facility] Comment on above: Performed By: #### B DAKOTA LIVR #### [facility] ([id number]) [address] [place] [address] CO2 [Moles/Vol] 26 mmol/L Normal 22-32 [facility] Comment on above: Performed By: #### B DAKOTA LIVR #### [facility] ([id number]) [address] [place] [address] Creatinine [Mass/Vol] 1.01 mg/dL Normal 0.70-1.20 [facility] Comment on above: Result Comment: METH OD TRACEABLE TO IDMS STANDARD Performed By: #### B DAKOTA, LIVR #### [facility] ([id number]) [address] [place], [place] [address] GFR/1.73 sq M.predicted among non-blacks MDRD (S/P/Bld) [Vol rate/Area] 88 mL/min/{1.73_m2} Normal >59 [facility] Comment on above: Result Comment: Reported eGFR is based on the CKD-EPI 2020 equation that does not use a race coefficient. Performed By: #### B DAKOTA, LIVR #### [facility] ([id number]) [address] [place] [address] Glucose [Mass/Vol] 102 mg/dL High 65-99 [facility] Comment on above: Performed By: #### B DAKOTA LIVR #### [facility] ([id number]) [address] [place] [address] Potassium [Moles/Vol] 3.5 mmol/L Normal 3.5-5.0 [facility] Comment on above: Performed By: #### B DAKOTA, LIVR #### [facility] ([id number]) [address] [place] [address] Sodium [Moles/Vol] 138 mmol/L Normal 134-146 [facility] Comment on above: Performed By: #### B DAKOTA, LIVR #### [facility] ([id number]) [address] [place] [address] Urea nitrogen [Mass/Vol] 12 mg/dL Normal 5-23 [facility] Comment on above: Performed By: #### Suhas DUNCAN, LIVR #### [facility] ([id number]) [address] [place] [address] CBC AND AUTO DIFFon 10-31-19 24 ABSOLUTE BASOPHIL 0.1 X10E9/L Normal 0.0-0.2 [facility] Comment on above: Performed By: #### Myesha DUDLEY, 42070-2 #### [facility] ([id number]) [address] [place] [address] ABSOLUTE NEUTROPHIL 4.7 X10E9/L Normal 1.5-6.6 [facility] Comment on above: Performed By: #### Myesha DUDLEY, 45664-2 #### [facility] ([id number]) [address] [place] [address] Basophils/100 WBC (Bld) 1.0 % Normal [facility] Comment on above: Performed By: #### Myesha DUDLEY, 81023-9 #### [facility] ([id number]) [address] [place] [address] Eosinophils (Bld) [#/Vol] 0.1 10*3/uL Normal 0.0-0.4 [facility] Comment on above: Performed By: #### Myesha DUDLEY, 49413-4 #### [facility] ([id number]) [address] [place] [address] Eosinophils/100 WBC (Bld) 1.2 % Normal [facility] Comment on above: Performed By: #### Myesha DUDLEY, 87574-0 #### [facility] ([id number]) [address] [place] [address] Erythrocyte distribution width (RBC) [Ratio] 13.3 % Normal 11.5-15.0 [facility] Comment on above: Performed By: #### Myesha DUDLEY, 54700-8 #### [facility] ([id number]) [address] [place] [address] Hematocrit (Bld) [Volume fraction] 41.7 % Normal 39-49 [facility] Comment on above: Performed By: #### Myesha DUDLEY, 84525-8 #### [facility] ([id number]) [address] [place] [address] Hemoglobin (Bld) [Mass/Vol] 14.9 g/dL Normal 13.0-17.0 [facility] Comment on above: Performed By: #### Myesha DUDLEY, 80544-3 #### [facility] ([id number]) [address] [place] [address] Lymphocytes (Bld) [#/Vol] 1.6 10*3/uL Normal 1.0-3.5 [facility] Comment on above: Performed By: #### Myesha DUDLEY, 29148-4 #### [facility] ([id number]) [address] [address] Lymphocytes/100 WBC (Bld) 22.9 % Normal [facility] Comment on above: Performed By: #### Myesha DUDLEY, 04144-7 #### [facility] ([id number]) [address] [address] MCH (RBC) [Entitic mass] 31.1 pg Normal 27-34 [facility] Comment on above: Performed By: #### Myesha DUDLEY, 48291-8 #### [facility] ([id number]) [address] [address] MCHC (RBC) [Mass/Vol] 35.7 g/dL Normal 32-36 [facility] Comment on above: Performed By: #### Myesha DUDLEY, 06880-5 #### [facility] ([id number]) [address] [place] [address] [place] [address] MCV (RBC) [Entitic vol] 87 fL Normal 80-100 [facility] Comment on above: Performed By: #### Myesha DUDLEY, 19181-9 #### [facility] ([id number]) [address] [place] [address] Monocytes (Bld) [#/Vol] 0.4 10*3/uL Normal 0-0.9 [facility] Comment on above: Performed By: #### Myesha DUDLEY, 39109-7 #### [facility] ([id number]) [facility] [place] [address] Monocytes/100 WBC (Bld) 5.6 % Normal [facility] Comment on above: Performed By: #### Myesha DUDLEY, 45041-4 #### [facility] ([id number]) [address] [place] [address] Neutrophils/100 WBC (Bld) 69.3 % Normal [facility] Comment on above: Performed By: #### Myesha DUDLEY, 38610-1 #### [facility] ([id number]) [address] [place] [address] Platelet mean volume (Bld) [Entitic vol] 8.1 fL Normal 7-12 [facility] Comment on above: Performed By: #### Myesha DUDLEY, 47032-8 #### [facility] ([id number]) [address] [place] [address] Platelets (Bld) [#/Vol] 246 10*3/uL Normal 150-450 [facility] Comment on above: Performed By: #### Myesha DUDLEY, 41719-7 #### [facility] ([id number]) [address] [place] [address] RBC COUNT 4.78 X10E12/L Normal 4.10-5.70 [facility] Comment on above: Performed By: #### Myesha DUDLEY, 34863-7 #### [facility] ([id number]) [address] [place] [address] WBC (Bld) [#/Vol] 6.8 10*3/uL Normal 4.0-11.0 [facility] Comment on above: Performed By: #### Myesha DUDLEY, 95653-3 #### [facility] ([id number]) [address] [place] [address] LIPASEon 10-31-2023 Lipase [Catalytic activity/Vol] 40 U/L Normal 17-40 [facility] Comment on above: Performed By: #### 3 040-3, 24881-7, 55929-2 #### [facility] ([id number]) [address] [place] [address] LIVER PANELon 10-31-2023 Albumin [Mass/Vol] 3.9 g/dL Normal 3.2-5.3 [facility] Comment on above: Performed By: #### B MP, LIVR #### [facility] ([id number]) [address] [place] [address] ALP [Catalytic activity/Vol] 70 U/L Normal 39-130 [facility] Comment on above: Performed By: #### B DAKOTA, LIVR #### [facility] ([id number]) [address] [place] [address] ALT [Catalytic activity/Vol] 30 U/L Normal 0-40 [facility] Comment on above: Performed By: #### B DAKOTA, LIVR #### [facility] ([id number]) [address] [place] [address] AST [Catalytic activity/Vol] 28 U/L Normal 0-41 [facility] Comment on above: Performed By: #### B DAKOTA, LIVR #### [facility] ([id number]) [address] [place] [address] Bilirubin [Mass/Vol] 1.0 mg/dL Normal 0.3-1.2 [facility] Comment on above: Performed By: #### B DAKOTA, LIVR #### [facility] ([id number]) [address] [place] [address] Bilirubin.direct [Mass/Vol] 0.1 mg/dL Normal 0.0-0.4 [facility] Comment on above: Performed By: #### B DAKOTA, LIVR #### [facility] ([id number]) [address] [place] [address] Protein [Mass/Vol] 7.3 g/dL Normal 6.0-8.0 [facility] Comment on above: Performed By: #### B DAKOTA, LIVR #### [facility] ([id number]) [address] [place] [address] MAGNESIUMon 10-31-2023 Magnesium [Mass/Vol] 2.2 mg/dL Normal 1.8-2.6 [facility] Comment on above: Performed By: #### 3 040-3, 27481-9, 53194-1 #### [facility] ([id number]) [address] [place] [address] Natriuretic peptide B [Mass/ Vol]on 10-31-2023 Natriuretic peptide B (Bld) [Mass/Vol] 27 pg/mL Normal <100.0 [facility] Comment on above: Performed By: #### C BCA, 06250-5 #### [facility] ([id number]) [address] [place] [address] PROTIME AND INRon 10-31-2023 INR Coag (PPP) [Relative time] 3.1 {INR} High 0.8-1.1 [facility] Comment on above: Performed By: #### P INR, 33145-7 #### [facility] ([id number]) [address] [place] [address] PT Coag (PPP) [Time] 35.1 s High 9.8-13.2 [facility] Comment on above: Performed By: #### P INR, 30245-9 #### [facility] ([id number]) [address] [place] [address] TROPONIN Ion 10-31-2023 Troponin I.cardiac [Mass/Vol] ng/mL Normal 0.00-0.04 [facility] Comment on above: Performed By: #### 3 040-3, 57226-2, 74086-1 #### [facility] ([id number]) [address] [place] [address] aPTT Coag (PPP) [Time]on aPTT Coag (Bld) [Time] 56 s High 26-37 [facility] Comment on above: Performed By: #### P INR, 42400-0 #### [facility] ([id number]) [address] [place] [address] POCT Protime / INRon 10-24- 024 INR Coag (PPP) [Relative time] 2.1 {INR} Abnormal 0.8 - 1.2 [facility] Interpretation and review of laboratory results Abnormal [facility] POCT Protime / INRon 10-02- 024 INR Coag (PPP) [Relative time] 3.1 {INR} Abnormal 0.8 - 1.2 [facility] Interpretation and review of laboratory results Abnormal [facility] CBC AND AUTO DIFFon 09-21-19 ABSOLUTE BASOPHIL 0.0 X10E9/L Normal 0.0-0.2 [facility] [place] [facility] Comment on above: Performed By: #### C BCA, PINR, 24742-7, CMP, 63491-4, 14115-4 #### [facility] ([id number]) [address] [place] [address] ABSOLUTE NEUTROPHIL 3.4 X10E9/L Normal 1.5-6.6 [facility] Comment on above: Performed By: #### C BCA, PINR, 66672-1, CMP, 58776-6, 10809-6 #### [facility] ([id number]) [address] [place] [address] Basophils/100 WBC (Bld) 0.5 % Normal [facility] Comment on above: Performed By: #### C BCA, PINR, 84262-9, CMP, 08930-4, 18277-5 #### [facility] ([id number]) [address] [place] [address] Eosinophils (Bld) [#/Vol] 0.1 10*3/uL Normal 0.0-0.4 [facility] Comment on above: Performed By: #### Myesha BCA, PINR, 95548-2, CMP, 57145-4, 75843-1 #### [facility] ([id number]) [address] [place] [address] Eosinophils/100 WBC (Bld) 2.1 % Normal [facility] Comment on above: Performed By: #### C BCA, PINR, 96049-5, CMP, 91497-6, 48101-4 #### [facility] ([id number]) [address] [place] [address] Erythrocyte distribution width (RBC) [Ratio] 13.0 % Normal 11.5-15.0 [facility] Comment on above: Performed By: #### C BCA, PINR, 04788-3, CMP, , 28618-6 #### [facility] ([id number]) [address] [place] [address] Hematocrit (Bld) [Volume fraction] 44.7 % Normal 39-49 [facility] Comment on above: Performed By: #### C BCA, PINR, 15819-4, CMP, , 45707-7 #### [facility] ([id number]) [address] [place] [address] Hemoglobin (Bld) [Mass/Vol] 15.6 g/dL Normal 13.0-17.0 [facility] Comment on above: Performed By: #### C BCA, PINR, 49257-3, CMP, , 02234-9 #### [facility] ([id number]) [address] [place] [address] Lymphocytes (Bld) [#/Vol] 1.6 10*3/uL Normal 1.0-3.5 [facility] Comment on above: Performed By: #### C BCA, PINR, 64818-4, CMP, , 53167-4 #### [facility] ([id number]) [address] [place] [address] Lymphocytes/100 WBC (Bld) 29.2 % Normal [facility] Comment on above: Performed By: #### C BCA, PINR, 99200-5, CMP, , 81836-4 #### [facility] ([id number]) [address] [place] [address] MCH (RBC) [Entitic mass] 30.0 pg Normal 27-34 [facility] Comment on above: Performed By: #### C BCA, PINR, 54378-9, CMP, 97704-9, 15720-5 #### [facility] ([id number]) [address] [place] [address] MCHC (RBC) [Mass/Vol] 34.8 g/dL Normal 32-36 [facility] Comment on above: Performed By: #### C BCA, PINR, 89316-0, CMP, 75952-3, 82777-2 #### [facility] ([id number]) [address] [place] [address]145 MCV (RBC) [Entitic vol] 86 fL Normal 80-100 [facility] Comment on above: Performed By: #### C BCA, PINR, 26647-2, CMP, 94361-1, 73452-9 #### [facility] ([id number]) [address] [place] [address]604 Monocytes (Bld) [#/Vol] 0.3 10*3/uL Normal 0-0.9 [facility] Comment on above: Performed By: #### C BCA, PINR, 71548-6, CMP, 69083-3, 60778-3 #### [facility] ([id number]) [address] [place] [address] 12005 Monocytes/100 WBC (Bld) 6.3 % Normal [facility] Comment on above: Performed By: #### C BCA, PINR, 38116-3, CMP, 33731-6, 37380-2 #### [facility] ([id number]) [address] [place] [address]85 Neutrophils/100 WBC (Bld) 61.9 % Normal [facility] Comment on above: Performed By: #### C BCA, PINR, 12602-4, CMP, 84411-9, 63239-7 #### [facility] ([id number]) [address] [place] [address]396 Platelet mean volume (Bld) [Entitic vol] 7.5 fL Normal 7-12 [facility] Comment on above: Performed By: #### C BCA, PINR, 74061-0, CMP, 26056-4, 35961-5 #### [facility] ([id number]) [address] [place] [address]59 Platelets (Bld) [#/Vol] 228 10*3/uL Normal 150-450 [facility] Comment on above: Performed By: #### C BCA, PINR, 84936-2, CMP, 44190-9, 96780-3 #### [facility] ([id number]) [address] [place], [place] [address] RBC COUNT 5.19 X10E12/L Normal 4.10-5.70 [facility] Comment on above: Performed By: #### C BCA, PINR, 39811-3, CMP, 17956-3, 89173-9 #### [facility] ([id number]) [address] [place] [address] 82780 WBC (Bld) [#/Vol] 5.5 10*3/uL Normal 4.0-11.0 [facility] [place] [facility] Comment on above: Performed By: #### C BCA, PINR, 61347-5, CMP, 49157-1, 37622-6 #### [facility] ([id number]) [address] [place] [address] 13551 COMPREHENSIVE METABOLIC PANE Vlad 09-21-2023 Albumin [Mass/Vol] 4.1 g/dL Normal 3.2-5.3 [facility] [place] [facility] Comment on above: Performed By: #### C BCA, PINR, 31108-6, CMP, 00018-9, 74239-2 #### [facility] ([id number]) [address] [place] [address] 32305 ALP [Catalytic activity/Vol] 77 U/L Normal 39-130 [facility] Comment on above: Performed By: #### C BCA, PINR, 56332-3, CMP, 93063-1, 13318-3 #### [facility] ([id number]) [address] [place] [address] 95174 ALT [Catalytic activity/Vol] 30 U/L Normal 0-40 [facility] Comment on above: Performed By: #### C BCA, PINR, 73277-5, CMP, 07843-5, 27032-9 #### [facility] ([id number]) [address] [place] [address] 04123 Anion gap [Moles/Vol] 9 mmol/L Normal 5-15 [facility] Comment on above: Performed By: #### C BCA, PINR, 44317-7, CMP, 12655-5, 71956-7 #### [facility] ([id number]) [address] [place] [address] 09422 AST [Catalytic activity/Vol] 28 U/L Normal 0-41 [facility] Comment on above: Performed By: #### C BCA, PINR, 38619-5, CMP, 10485-2, 15285-6 #### [facility] ([id number]) [address] [place] [address] 44135 Bilirubin [Mass/Vol] 0.2 mg/dL Low 0.3-1.2 [facility] Comment on above: Performed By: #### C BCA, PINR, 27274-3, CMP, 27085-2, 69865-3 #### [facility] ([id number]) [address] [place] [address] 44268 Calcium [Mass/Vol] 8.9 mg/dL Normal 8.5-10.5 [facility] Comment on above: Performed By: #### C BCA, PINR, 88329-9, CMP, 04478-9, 01973-8 #### [facility] ([id number]) [address] [place] [address] 74962 Chloride [Moles/Vol] 105 mmol/L Normal 98-109 [facility] Comment on above: Performed By: #### C BCA, PINR, 05953-5, CMP, 48497-7, 36646-4 #### [facility] ([id number]) [address] [place] [address] 50404 CO2 [Moles/Vol] 25 mmol/L Normal 22-32 [facility] Comment on above: Performed By: #### C BCA, PINR, 78156-4, CMP, 08046-4, 32918-9 #### [facility] ([id number]) [address] [place] [address] 31099 Creatinine [Mass/Vol] 0.95 mg/dL Normal 0.70-1.20 [facility] Comment on above: Result Comment: METH OD TRACEABLE TO IDMS STANDARD Performed By: #### C BCA, PINR, 66464-7, CMP, 88037-2, 39591-9 #### [facility] ([id number]) [address] [place] [address] 40251 eGFR (CKD-EPI) NON-RACE DEPENDENT >90 Normal >59 [facility] Comment on above: Result Comment: Reported eGFR is based on the CKD-EPI 2020 equation that does not use a race coefficient. Performed By: #### C BCA, PINR, 46582-5, CMP, 29171-5, 42073-0 #### [facility] ([id number]) [address] [place] [address] 38972 Glucose [Mass/Vol] 104 mg/dL High 65-99 [facility] Comment on above: Performed By: #### C BCA, PINR, 44145-1, CMP, 87091-7, 57403-0 #### [facility] ([id number]) [address] [place] [address] 43444 Potassium [Moles/Vol] 4.1 mmol/L Normal 3.5-5.0 [facility] Comment on above: Performed By: #### C BCA, PINR, 36135-4, CMP, 51749-9, 17749-7 #### [facility] ([id number]) [address] [place] [address] 57074 Protein [Mass/Vol] 7.8 g/dL Normal 6.0-8.0 [facility] [place] [facility] Comment on above: Performed By: #### C BCA, PINR, 76171-0, CMP, 57514-6, 26826-4 #### [facility] ([id number]) [address] [place] [address] 33283 Sodium [Moles/Vol] 139 mmol/L Normal 134-146 [facility] [place] [facility] Comment on above: Performed By: #### C BCA, PINR, 28972-2, CMP, 13049-1, 75223-4 #### [facility] ([id number]) [address] [place] [address] 40886 Urea nitrogen [Mass/Vol] 14 mg/dL Normal 5-23 [facility] Comment on above: Performed By: #### C BCA, PINR, 34513-4, CMP, 10722-4, 37273-6 #### [facility] ([id number]) [address] [place] [address] 99118 MAGNESIUMon 09-21-2023 Magnesium [Mass/Vol] 2.1 mg/dL Normal 1.8-2.6 [facility] Comment on above: Performed By: #### C BCA, PINR, 98524-5, CMP, 74651-8, 69589-9 #### [facility] ([id number]) [address] [place] [address] 73707 PROTIME AND INRon 09-21-2023 INR Coag (PPP) [Relative time] 3.2 {INR} High 0.8-1.1 [facility] Comment on above: Performed By: #### C BCA, PINR, 76939-3, CMP, 94377-4, 22807-0 #### [facility] ([id number]) [address] [place] [address] PT Coag (PPP) [Time] 35.8 s High 9.8-13.2 [facility] Comment on above: Result Comment: NEW REFERENCE RANGE Performed By: #### C BCA, PINR, 61952-3, CMP, 36762-4, 12884-7 #### [facility] ([id number]) [address] [place] [address] SARS/FLU A+B/RSV by NAAT/Mol ecularon 09-21-2023 SARS/FLU A+B/RSV by NAAT/Molecular FLU A PCR Negative (qualifier value) FLU B PCR Negative (qualifier value) RSV by PCR Negative (qualifier value) SARS CoV 2 Not detected (qualifier value) NOTE The Xpert Xpress SARS-CoV-2/Flu/RSV Plus test is a rapid, multiplexed real-time RT-PCR test intended for the simultaneous qualitative detection and differentiation of SARS-CoV-2, influenza A, influenza B and respiratory syncytial virus (RSV) viral RNA from individuals suspected of respiratory viral infection consistent with COVID-19 by their healthcare provider. This test has not been validated in asymptomatic patients. The Xpert Xpress SARS-CoV-2 test is intended for use by qualified and trained operators who are performing tests using either [employer] or [employer] systems and is limited to laboratories that meet the CLIA requirements to perform high and moderate complexity tests. The Xpert Xpress SARS-CoV-2/Flu/RSV Plus is only for use under the Food and Drug Administration's Emergency Use Authorization. Results are for the simultaneous detection and differentiation of SARS-CoV-2, influenza A, influenza B and RSV nucleic acids in clinical specimens. SARS-CoV-2, influenza A, influenza B and RSV RNA identified by this test are generally detectable in upper respiratory samples during the acute phase of infection. Positive results are indicative of the presence of the identified virus, but do not rule out bacterial infection or co-infection with other pathogens not detected by this test. Clinical correlation with patient history and other diagnostic information is necessary to determine patient infection status. The agent detected may not be the definite cause of disease. Negative results do not preclude SARS-CoV-2, influenza A, influenza B and RSV infection and should not be used as the sole basis for treatment or other patient management decisions. Negative results must be combined with clinical observations, patient history and epidemiological information. An Invalid result may occur with specimen-associated inhibition unable to be resolved with specimen repeat. Fact Sheet for Healthcare Providers: https://www.fda.gov/ media/276435/downloa d Fact Sheet for Patients: https://www.fda.gov/ media/163852/downloa d Normal [facility] Comment on above: Performed By: #### C OVFLR #### [facility] ([id number]) [address] [place] [address] 99087 TROPONIN Ion 09-21-2023 Troponin I.cardiac [Mass/Vol] ng/mL Normal 0.00-0.04 [facility] Comment on above: Performed By: #### C BCA, PINR, 57323-3, CMP, 70004-8, 18721-1 #### [facility] ([id number]) [address] [place] [address] 56752 XR CHEST 1 VWon 09-21-2023 XR CHEST 1 VW XR CHEST 1 VW XR CHEST 1 VW HISTORY: Cough COMPARISON: 02/10/2016 FINDINGS: Questionable left lower lung subsegmental atelectasis. Otherwise no consolidation, overt edema. No pleural effusion or pneumothorax. Unremarkable cardiomediastinal silhouette. No acute osseous abnormality. IMPRESSION: * No evidence for acute pulmonary process. Approved by Resident: Kang Sanches MD on 09/21/2023 6:40 PM Krishan Cordova have personally reviewed the image(s) and agree with and/or edited the report Finalized by Krishan Golden on 09/21/2023 6:45 PM Normal [facility] aPTT Coag (PPP) [Time]on aPTT Coag (Bld) [Time] 52 s High 26-37 [facility] Comment on above: Result Comment: NEW REFERENCE RANGE Performed By: #### C BCA, PINR, 04472-8, CMP, 90609-3, 46372-0 #### [facility] ([id number]) [address] [place] [address] POCT Protime / INRon 024 INR Coag (PPP) [Relative time] 4.9 {INR} Abnormal 0.8 - 1.2 [facility] Interpretation and review of laboratory results Abnormal [facility] RESPIRATORY PANELon 09-04-20 23 ALTERNARIA ALTERNATA <0.10 Normal <0.10 [facility] Comment on above: Result Comment: Clas s 0: Normal Performed By: #### R AP #### [facility] ([id number]) [address], [address] [place] [address] ASPERGILLUS FUMIGATUS <0.10 Normal <0.10 [facility] Comment on above: Result Comment: Clas s 0: Normal Performed By: #### R AP #### [facility] ([id number]) [address] [place] [address], [address] [place] [address] BERMUDA GRASS <0.10 Normal <0.10 [facility] Comment on above: Result Comment: Clas s 0: Normal Performed By: #### R AP #### [facility] ([id number]) [address] [place] [address] [address] <0.10 Normal <0.10 [facility] Comment on above: Result Comment: Clas s 0: Normal Performed By: #### R AP #### [facility] ([id number]) [address] [place] [address] CAT DANDER <0.10 Normal <0.10 [facility] Comment on above: Result Comment: Clas s 0: Normal Performed By: #### R AP #### [facility] ([id number]) [address] [place] [address] CLADOSPORIUM HERB <0.10 Normal <0.10 [facility] Comment on above: Result Comment: Clas s 0: Normal Performed By: #### R AP #### [facility] ([id number]) [address] [place] [address] COCKLEBUR <0.10 Normal <0.10 [facility] Comment on above: Result Comment: Clas s 0: Normal Performed By: #### R AP #### [facility] ([id number]) [address], [address] [place] [address] COCKROACH <0.10 Normal <0.10 [facility] Comment on above: Result Comment: Clas s 0: Normal Performed By: #### R AP #### [facility] ([id number]) [address] [place] [address] COMMON PIGWEED <0.10 Normal <0.10 [facility] Comment on above: Result Comment: Clas s 0: Normal Performed By: #### R AP #### [facility] ([id number]) [address], [address] [place] [address] COMMON RAGWEED <0.10 Normal <0.10 [facility] Comment on above: Result Comment: Clas s 0: Normal Performed By: #### R AP #### [facility] ([id number]) [address], [address] [place] [address] COMMON SILVER BIRCH <0.10 Normal <0.10 [facility] Comment on above: Result Comment: Clas s 0: Normal Performed By: #### R AP #### [facility] ([id number]) [address] [place] [address] COTTONWOOD <0.10 Normal <0.10 [facility] Comment on above: Result Comment: Clas s 0: Normal Performed By: #### R AP #### [facility] ([id number]) [address], [address] [place] [address] DERMATOPH FARINAE 0.23 kU/L High <0.10 [facility] Comment on above: Result Comment: Clas s 0/1: Low level of Allergy, ongoing sensitization Performed By: #### R AP #### [facility] ([id number]) [address] [place] [address] DERMATOPH PTERONYSS 0.14 kU/L High <0.10 [facility] Comment on above: Result Comment: Clas s 0/1: Low level of Allergy, ongoing sensitization Performed By: #### R AP #### [facility] ([id number]) [address], [address] [place] [address] DOG DANDER <0.10 Normal <0.10 [facility] Comment on above: Result Comment: Clas s 0: Normal Performed By: #### R AP #### [facility] ([id number]) [address], [address] [place] [address] ELM <0.10 Normal <0.10 [facility] Comment on above: Result Comment: Clas s 0: Normal Performed By: #### R AP #### [facility] ([id number]) [address], [address] [place] [address] GOOSEFOOT TIERNEY QTR <0.10 Normal <0.10 [facility] Comment on above: Result Comment: Clas s 0: Normal Performed By: #### R AP #### [facility] ([id number]) [address], [address] [place] [address] IGE 10 IU/mL Normal 0-165 [facility] Comment on above: Performed By: #### R AP #### [facility] ([id number]) [address], [address] [place] [address] JUNIOR GRASS <0.10 Normal <0.10 [facility] Comment on above: Result Comment: Clas s 0: Normal Performed By: #### R AP #### [facility] ([id number]) [address], [address] [place] [address] MAPLE LEAF SYCAMORE <0.10 Normal <0.10 [facility] Comment on above: Result Comment: Clas s 0: Normal Performed By: #### R AP #### [facility] ([id number]) [address], [address] [place] [address] ME[place]OW [place] CASEY <0.10 Normal <0.10 [facility] Comment on above: Result Comment: Clas s 0: Normal Performed By: #### R AP #### [facility] ([id number]) [address], [address] [place] [address] MOUNTAIN JUNIPER <0.10 Normal <0.10 [facility] Comment on above: Result Comment: Clas s 0: Normal Performed By: #### R AP #### [facility] ([id number]) [address], [address] [place] [address] MOUSE URINE PROTEINS <0.10 Normal <0.10 [facility] Comment on above: Result Comment: Clas s 0: Normal Performed By: #### R AP #### [facility] ([id number]) [address], [address] [place] [address] MUGWORT <0.10 Normal <0.10 [facility] Comment on above: Result Comment: Clas s 0: Normal Performed By: #### R AP #### [facility] ([id number]) [address], [address] [place] [address] MULBERRY TREE <0.10 Normal <0.10 [facility] Comment on above: Result Comment: Clas s 0: Normal Performed By: #### R AP #### [facility] ([id number]) [address], [address] [place] [address] NETTLE <0.10 Normal <0.10 [facility] Comment on above: Result Comment: Clas s 0: Normal Performed By: #### R AP #### [facility] ([id number]) [address], [address] [place] [address] OAK <0.10 Normal <0.10 [facility] Comment on above: Result Comment: Clas s 0: Normal Performed By: #### R AP #### [facility] ([id number]) [address], [address] [place] [address] PECAN HICKORY TREE <0.10 Normal <0.10 [facility] Comment on above: Result Comment: Clas s 0: Normal Performed By: #### R AP #### [facility] ([id number]) [address] [place] [address] PENICILLIUM CHRYSOGN <0.10 Normal <0.10 [facility] Comment on above: Result Comment: Clas s 0: Normal Performed By: #### R AP #### [facility] ([id number]) [address], [address] [place] [address] ROUGH MARSHELDER <0.10 Normal <0.10 [facility] Comment on above: Result Comment: Clas s 0: Normal Performed By: #### R AP #### [facility] ([id number]) [address], [address] [place] [address] SALTWORT NEAL THISTLE <0.10 Normal <0.10 [facility] Comment on above: Result Comment: Clas s 0: Normal Performed By: #### R AP #### [facility] ([id number]) [address], [address] [place] [address] SHEEP SORREL <0.10 Normal <0.10 [facility] Comment on above: Result Comment: Clas s 0: Normal Performed By: #### R AP #### [facility] ([id number]) [address], [address] [place] [address] MONICA <0.10 Normal <0.10 [facility] Comment on above: Result Comment: Clas s 0: Normal Performed By: #### R AP #### [facility] ([id number]) [address] [facility] [address] [place] [address] WALNUT TREE POLLEN <0.10 Normal <0.10 [facility] Comment on above: Result Comment: Clas s 0: Normal Performed By: #### R AP #### [facility] ([id number]) [address] [address] [place] [address] WHITE GEMA <0.10 Normal <0.10 [facility] Comment on above: Result Comment: Clas s 0: Normal Performed By: #### R AP #### [facility] ([id number]) [address], [address] [place] [address] CBC AUTO DIFFon 11-27-2022 BASO # 0.1 103/ul Normal 0.0-0.1 [facility] Comment on above: Performed By: #### C BC #### [facility] [address] [place] [address] Dr. Su Landrum Basophils/100 WBC (Bld) 1.1 % Normal 0.2-2.0 [facility] Comment on above: Performed By: #### C BC #### [facility] [address] [place] [address] Dr. Su Landrum EO # 0.1 103/ul Normal 0.0-0.7 [facility] Comment on above: Performed By: #### C BC #### [facility] [address] [place] [address] Dr. Su Landrum Eosinophils/100 WBC (Bld) 2.4 % Normal 0.9-7.0 [facility] Comment on above: Performed By: #### C BC #### [facility] [address] [place] [address] Dr. Su Landrum Erythrocyte distribution width (RBC) [Ratio] 11.9 % Normal 11.0-15.0 [facility] Comment on above: Performed By: #### C BC #### [facility] [address] [place] [address] Dr. Su Landrum Hematocrit (Bld) [Volume fraction] 44.8 % Normal 42.0-54.0 [facility] Comment on above: Performed By: #### C BC #### [facility] [address] [place] [address] Dr. Su Landrum Hemoglobin (Bld) [Mass/Vol] 15.5 g/dL Normal 14.0-18.0 [facility] Comment on above: Performed By: #### C BC #### [facility] [address] [place] [address] Dr. Su Landrum IG # 0.01 10e3/ul Normal 0.00-0.03 [facility] Comment on above: Performed By: #### C BC #### [facility] [address] [place] [address] Dr. Su Landrum IG % 0.2 % Normal 0.0-0.5 [facility] Comment on above: Performed By: #### C BC #### [facility] [address] [place] [address] Dr. Su Landrum LYMPH # 1.4 103/ul Normal 1.2-3.8 [facility] Comment on above: Performed By: #### C BC #### [facility] [address] [place] [address] Dr. Su Landrum Lymphocytes/100 WBC (Bld) 30.2 % Normal 20.5-60.0 [facility] Comment on above: Performed By: #### C BC #### [facility] [address] [place] [address] Dr. Su Landrum MANUAL DIFF REQ NO Normal [facility] Comment on above: Performed By: #### C BC #### [facility] [address] [place] [address] Dr. Su Landrum MCH (RBC) [Entitic mass] 30.1 pg Normal 25.9-34.0 [facility] Comment on above: Performed By: #### C BC #### [facility] [address] [place] [address] Dr. Su Landrum MCHC (RBC) [Mass/Vol] 34.6 g/dL Normal 29.9-35.2 [facility] Comment on above: Performed By: #### C BC #### [facility] [address] [place] [address] Dr. Su Landrum MCV (RBC) [Entitic vol] 87.0 fL Normal 80.0-94.0 [facility] Comment on above: Performed By: #### C BC #### [facility] [address] [place] [address] Dr. Su Landrum MONO # 0.3 103/ul Normal 0.3-0.8 [facility] Comment on above: Performed By: #### C BC #### [facility] [address] [place] [address] Dr. Su Landrum Monocytes/100 WBC (Bld) 6.2 % Normal 1.7-12.0 [facility] Comment on above: Performed By: #### C BC #### [facility] [address] [place] [address] Dr. Su Landrum NEUT # 2.8 103/ul Normal 1.4-6.5 [facility] Comment on above: Performed By: #### C BC #### [facility] [address] [place] [address] Dr. Su Landrum Neutrophils/100 WBC (Bld) 59.9 % Normal 43.0-75.0 [facility] Comment on above: Performed By: #### C BC #### [facility] [address] [place] [address] Dr. Su Landrum Platelet mean volume (Bld) [Entitic vol] 9.4 fL Critically low 9.5-13.5 [facility] Comment on above: Performed By: #### C BC #### [facility] [address] [place] [address] Dr. Su Landrum PLT 205 103/ul Normal 150-450 [facility] Comment on above: Performed By: #### C BC #### [facility] [address] [place] [address] Dr. Su Landrum RBC 5.15 106/ul Normal 4.70-6.10 [facility] Comment on above: Performed By: #### C BC #### [facility] [address] [place] [address] Dr. Su Landrum WBC 4.7 103/ul Normal 4.0-11.0 [facility] Comment on above: Performed By: #### C BC #### [facility] [address] [place] [address] Dr. Su Landrum GLYCOHEMOGLOBIN A1Con 2022 ADA RECOMMENDATION SEE BELOW Normal [facility] Comment on above: Result Comment: ADA RECOMMENDED LIMIT 4.0 - 6.0 ADA THERAPEUTIC TARGET < 7.0 ACTION SUGGESTED > 7.0 Performed By: #### A 1C #### [facility] [address] [place] [address] Dr. Su Landrum Glucose [Mass/Vol] 105 mg/dL Normal [facility] Comment on above: Performed By: #### A 1C #### [facility] [address] [place] [address] Dr. Su Landrum HbA1c (Bld) [Mass fraction] 5.3 % Normal 4.5-6.2 [facility] Comment on above: Performed By: #### A 1C #### [facility] [address] [place] [address] Dr. Su Landrum LIPID PROFILEon 11-27-2022 CHOL-HDL RATIO NORM SEE BELOW Normal [facility] Comment on above: Result Comment: 3.3 - 4.4 LOW RISK 4.4 - 7.1 AVERAGE RISK 7.1 - 11.0 MODERATE RISK >11.0 HIGH RISK Performed By: #### L IPID, BMP, TSH #### [facility] [address] [address] [address] Su Landrum Cholesterol [Mass/Vol] 188 mg/dL Normal <=200 [facility] Comment on above: Performed By: #### L IPID, BMP, TSH #### [facility] [address] [address] [address] Su Landrum Cholesterol in HDL [Mass/Vol] 45 mg/dL Normal 40-60 [facility] Comment on above: Performed By: #### L IPID, BMP, TSH #### [facility] [address] [address] [address] Su Landrum Cholesterol in LDL [Mass/Vol] 123.6 mg/dL Normal [facility] Comment on above: Performed By: #### L IPID, BMP, TSH #### [facility] [address] [address] [address] Su Landrum Cholesterol.total/Ch olesterol in HDL [Mass ratio] 4.2 {ratio} Normal [facility] Comment on above: Performed By: #### L IPID, BMP, TSH #### [facility] [address] [address] [address] Su Landrum HDL NORMAL > or = 60 mg/dl - LOW CARDIOVASCULAR RISK <40 mg/dl - HIGH CARDIOVASCULAR RISK Normal [facility] Comment on above: Performed By: #### L IPID, BMP, TSH #### [facility] [address] [address] [address] Su Landrum LDL CALC NORMAL SEE BELOW Normal [facility] Comment on above: Result Comment: <100 mg/dl OPTIMAL 100 - 129 mg/dl NEAR OR ABOVE OPTIMAL 130 - 159 mg/dl BORDERLINE HIGH 160 - 189 mg/dl HIGH >190 mg/dl VERY HIGH Performed By: #### L IPID, BMP, TSH #### [facility] [address] [address] [address] Su Landrum Triglyceride [Mass/Vol] 97 mg/dL Normal <=150 [facility] Comment on above: Performed By: #### L IPID, BMP, TSH #### [facility] [address] [address] [address] Su Landrum VLDL CALC 19.4 mg/dL Normal [facility] Comment on above: Performed By: #### L IPID, BMP, TSH #### [facility] [address] [address] [address] Su Landrum PROF CHEM 8 (BAS METB)on Anion gap [Moles/Vol] 11.2 mmol/L Normal [facility] Comment on above: Performed By: #### L IPID, BMP, TSH #### [facility] [address] [place] [address] Dr. Su Landrum Calcium [Mass/Vol] 9.2 mg/dL Normal 8.5-10.1 [facility] Comment on above: Performed By: #### L IPID, BMP, TSH #### [facility] [address] [place] [address] Dr. Su Landrum Chloride [Moles/Vol] 106 mmol/L Normal 98-107 [facility] Comment on above: Performed By: #### L IPID, BMP, TSH #### [facility] [address] [address] [address] Su Landrum CO2 [Moles/Vol] 29.5 mmol/L Normal 21.0-32.0 [facility] Comment on above: Performed By: #### L IPID, BMP, TSH #### [facility] [address] [address] [address] Su Landrum Creatinine [Mass/Vol] 1.00 mg/dL Normal 0.70-1.30 [facility] Comment on above: Performed By: #### L IPID, BMP, TSH #### [facility] [address] [address] [address] Su Landrum EGFR-AF GERMAN >60 Normal >=60 [facility] Comment on above: Performed By: #### L IPID, BMP, TSH #### [facility] [address] [address] [address] Su Landrum EGFR-NON AF GERMAN >60 Normal >=60 [facility] Comment on above: Performed By: #### L IPID, BMP, TSH #### [facility] [address] [address] [address] Su Landrum Glucose [Mass/Vol] 120 mg/dL Critically high 74-106 [facility] Comment on above: Performed By: #### L IPID, BMP, TSH #### [facility] [address] [address] [address] Su Landrum Potassium [Moles/Vol] 3.7 mmol/L Normal 3.5-5.1 [facility] Comment on above: Performed By: #### L IPID, BMP, TSH #### [facility] [address] [place] [address] Dr. Su Landrum Sodium [Moles/Vol] 143 mmol/L Normal 136-145 [facility] Comment on above: Performed By: #### L IPID, BMP, TSH #### [facility] [address] [place] [address] Dr. Su Landrum Urea nitrogen [Mass/Vol] 9.0 mg/dL Normal 7.0-18.0 [facility] Comment on above: Performed By: #### L IPID, BMP, TSH #### [facility] [address] [place] [address] Dr. Su Landrum Urea nitrogen/Creatinine [Mass ratio] 9.0 mg/mg Normal [facility] Comment on above: Performed By: #### L IPID, BMP, TSH #### [facility] [address] [place] [address] Dr. uS Landrum TSHon 11-27-2022 TSH 1.540 uIU/mL Normal 0.358-3.740 [facility] Comment on above: Performed By: #### L IPID, BMP, TSH #### [facility] [address] [place] [address] Dr. Su Landrum IgG Subclasseson 03-23-2022 IgG subclass 1 527 mg/dL Normal 240-1118 [facility] Comment on above: Result Comment: (NOT E) REFERENCE INTERVAL: Immunoglobulin G Subclass 1 The total IgG (mg/dL) can be derived from the sum of the subclass IgG1, IgG2, IgG3, and IgG4 values. However, a confirmatory and more precise total IgG is available by the turbidimetric method of quantitation for total IgG. Refer to test Immunoglobulin G, Serum ([id number]). Access complete set of age- and/or gender-specific reference intervals for this test in the [facility] Test Directory (Intern). Performed By: #### A IGGSB #### [address] [id number] Mason Foreman/Superintendant: Godfrey Bates MD IgG subclass 2 261 mg/dL Normal 124-549 [facility] Comment on above: Result Comment: (NOT E) REFERENCE INTERVAL: Immunoglobulin G Subclass 2 Access complete set of age- and/or gender-specific reference intervals for this test in the [employer] Test Directory (Intern). Performed By: #### A IGGSB #### [facility] [address] [id number] Mason Foreman/Superintendant: Godfrey Bates MD IgG subclass 3 72 mg/dL Normal 21-134 [facility] Comment on above: Result Comment: (NOT E) REFERENCE INTERVAL: Immunoglobulin G Subclass 3 Access complete set of age- and/or gender-specific reference intervals for this test in the [employer] Test Directory (Intern). Performed By: #### A IGGSB #### [employer] [address] [id number] Mason Foreman/Superintendant: Godfrey Bates MD IgG subclass 4 34 mg/dL Normal 1-123 [facility] Comment on above: Result Comment: (NOT E) REFERENCE INTERVAL: Immunoglobulin G Subclass 4 Access complete set of age- and/or gender-specific reference intervals for this test in the [employer] Test Directory (Intern). Performed by [facility], [address] [place] [id number] [email or web address], Quentin Harden MD, PHD, Lab. Director Performed By: #### A IGGSB #### [address] [place] [address] Mason Foreman/Superintendant: Godfrey Bates MD PTon 02-19-2022 INR Coag (PPP) [Relative time] 1.1 {INR} Normal [facility] Comment on above: Result Comment: Non-therapeutic Range: INR = 0.9-1.2 Therapeutic Range: Moderate Anticoagulant Intensity: INR = 2.0-3.0 High Anticoagulant Intensity: INR = 2.5-3.5 Performed By: #### F BNEJIE, CER, AFPTMR, FEBC #### [address] [id number] Mason Foreman/Superintendant: Ang Burdick MD #### YOSEF, AATRPH #### [address] [phone] Mason Foreman/Superintendant: Godfrey Bates MD PT Coag (PPP) [Time] 13.9 s Normal 11.8-14.6 [facility] Comment on above: Performed By: #### F BENJIE, CER, AFPTMR, FEBC #### [address] [id number] Mason Foreman/Superintendant: Ang Burdick MD #### YOSEF, AATRPH #### [address] [id number] Mason Foreman/Superintendant: Godfrey Bates MD A1 Antitrypsin Phenoon 02-10 A1 Antitryp Phenotype M1M1 Normal [facility] Comment on above: Result Comment: (NOT E) The patient appears to have a normal phenotype. All M alleles (including subtypes M1, M2, and M3) produce normal serum concentrations of vcijx-4-ajecunep inhibitor and are not associated with clinical disease. Caution in interpretation is advised if the patient has been transfused within the previous 21 days. Performed By: [facility] [address] [place] [id number] [employer] Manager: Itzel Hinojosa MD Performed By: #### F BENJIE, CER, AFPTMR, FEBC #### [address] [id number] Mason Foreman/Superintendant: Ang Burdick MD #### ALKMASuhas, AATRPH #### [facility] [address] [place], [place] [id number] Mason Foreman/Superintendant: Gdofrey Bates MD A1 Antitrypsin 147 mg/dL Normal 90-200 [facility] Comment on above: Result Comment: To c onvert to umol/L, multiply mg/dL by 0.185 Performed By: #### F BENJIE, CER, AFPTMR, FEBC #### [facility] [address] [place] [address] Mason Foreman/Superintendant: Ang Burdick MD #### YOSEF, AATRPH #### [facility] [address] [place] [address] Mason Foreman/Superintendant: Godfrey Bates MD NM HEPATOBILIARY SCAN W EJEC TION FRACTIONon 01-31-2022 No evidence of acute cholecystitis. Gallbladder ejection fraction is low, which can be due to functional gallbladder disorder or incomplete absorption of the fatty meal. RECOMMENDATIONS: Unavailable [facility] RIS CONSOLIDATED EXAMINATION: NUCLEAR MEDICINE HEPATOBILIARY SCINTIGRAPHY (HIDA SCAN) WITH EJECTION FRACTION. TECHNIQUE: Approximately 5.4 millicuries Tc99m Mebrofenin (Choletec) was administered IV. Then, dynamic images of the abdomen were obtained in the anterior projection for 60 mins. A right lateral view was also obtained at 60 mins. Due to a shortage/inavailabil ity of CCK, one can (237 ml) Ensure plus was substitued orally. Images were obtained in the KAZAKH projection and regions of interest were drawn around the gallbladder and ejection fraction was calculated. COMPARISON: No prior for comparison. HISTORY: ORDERING SYSTEM PROVIDED HISTORY: Elevated liver enzymes TECHNOLOGIST PROVIDED HISTORY: Reason for Exam: Elevated liver enzymes FINDINGS: Prompt, homogenous uptake by the liver is noted with normal appearance of radiotracer excretion into the biliary system. Clearance of bloodpool activity appears appropriate. Gallbladder and small bowel is visualized in appropriate sequence and time. Gallbladder ejection fraction measured 10%. Normal value is >33% for Ensure protocol. Note, Ensure normal range is based on a limited study. [facility] RIS CONSOLIDATED Real Wray MD - 01/31/2022 EXAMINATION: NUCLEAR MEDICINE HEPATOBILIARY SCINTIGRAPHY (HIDA SCAN) WITH EJECTION FRACTION. TECHNIQUE: Approximately 5.4 millicuries Tc99m Mebrofenin (Choletec) was administered IV. Then, dynamic images of the abdomen were obtained in the anterior projection for 60 mins. A right lateral view was also obtained at 60 mins. Due to a shortage/inavailabil ity of CCK, one can (237 ml) Ensure plus was substitued orally. Images were obtained in the KAZAKH projection and regions of interest were drawn around the gallbladder and ejection fraction was calculated. COMPARISON: No prior for comparison. HISTORY: ORDERING SYSTEM PROVIDED HISTORY: Elevated liver enzymes TECHNOLOGIST PROVIDED HISTORY: Reason for Exam: Elevated liver enzymes FINDINGS: Prompt, homogenous uptake by the liver is noted with normal appearance of radiotracer excretion into the biliary system. Clearance of bloodpool activity appears appropriate. Gallbladder and small bowel is visualized in appropriate sequence and time. Gallbladder ejection fraction measured 10%. Normal value is >33% for Ensure protocol. Note, Ensure normal range is based on a limited study. IMPRESSION: No evidence of acute cholecystitis. Gallbladder ejection fraction is low, which can be due to functional gallbladder disorder or incomplete absorption of the fatty meal. RECOMMENDATIONS: Unavailable [employer]: Radiology Study observation (narrative) [employer]: NM HEPATOBILIARY SCAN W EJEC TION FRACTIONOrdered By: Real Wray on 01-31-2022 [employer]: NM HEPATOBILIARY SCAN W PHAR MACOLOGICAL INTERVENTIONon 01-31-2022 NM HEPATOBILIARY SCAN W PHARMACOLOGICAL INTERVENTION EXAMINATION: NUCLEAR MEDICINE HEPATOBILIARY SCINTIGRAPHY (HIDA SCAN) WITH EJECTION FRACTION. TECHNIQUE: Approximately 5.4 millicuries Tc99m Mebrofenin (Choletec) was administered IV. Then, dynamic images of the abdomen were obtained in the anterior projection for 60 mins. A right lateral view was also obtained at 60 mins. Due to a shortage/inavailabil ity of CCK, one can (237 ml) Ensure plus was substitued orally. Images were obtained in the KAZAKH projection and regions of interest were drawn around the gallbladder and ejection fraction was calculated. COMPARISON: No prior for comparison. HISTORY: ORDERING SYSTEM PROVIDED HISTORY: Elevated liver enzymes TECHNOLOGIST PROVIDED HISTORY: Reason for Exam: Elevated liver enzymes FINDINGS: Prompt, homogenous uptake by the liver is noted with normal appearance of radiotracer excretion into the biliary system. Clearance of bloodpool activity appears appropriate. Gallbladder and small bowel is visualized in appropriate sequence and time. Gallbladder ejection fraction measured 10%. Normal value is >33% for Ensure protocol. Note, Ensure normal range is based on a limited study. IMPRESSION: No evidence of acute cholecystitis. Gallbladder ejection fraction is low, which can be due to functional gallbladder disorder or incomplete absorption of the fatty meal. RECOMMENDATIONS: Unavailable Interpreted by: Real Wray MD Signed by: Real Wray MD 01/31/22 Final result Normal [facility] JOHN Screen w/reflexon 2021 JOHN Screen Negative Normal NEG [facility] Comment on above: Performed By: #### F BENJIE, CER, AFPTMR, FEBC #### [facility] [employer] [address] [place] [phone] Mason Foreman/Superintendant: Ang Burdick MD #### ALKMAB, AATRPH #### [facility] [address] [place] [address] Mason Foreman/Superintendant: Godfrey Bates MD Anti-dsDNA 1.3 IU/mL Normal <10.0 [facility] Comment on above: Result Comment: Reference Range: <10.0 Negative 10.0-15.0 Equivocal >15.0 Positive Performed By: #### F BENJIE, CER, AFPTMR, FEBC #### [facility] [address] [place] [phone] Mason Foreman/Superintendant: Ang Burdick MD #### ALKMASuhas, AATRPH #### [facility] [address] [place] [address] Mason Foreman/Superintendant: Godfrey Bates MD Anti-Mitochondrial Abon 05- Anti-Mitochondrial Ab 1.5 U/mL Normal 0.0-4.0 [facility] Comment on above: Result Comment: Reference Range: <4.0 Negative 4.0-6.0 Equivocal >6.0 Positive When results are Equivocal, it is recommended to retest after 8-12 weeks. Performed By: #### F BENJIE, CER, AFPTMR, FEBC #### [facility] [address] [place] [address] [phone] Mason Foreman/Superintendant: Ang Burdick MD #### YOSEF, AATRENE #### [facility] [address] [place], [place] [phone] Mason Foreman/Superintendant: Godfrey Bates MD JOHN Screen w/reflexon 2021 ALEXIS Screen 0.1 U/mL Normal <0.7 [facility] Comment on above: Result Comment: Reference Range: <0.7 Negative 0.7-1.0 Equivocal >1.0 Positive ALEXIS Screen includes U1RNP,RNP70,Sm,Ro(SS-A),La(SS-B),CENP,Scl-70,Jessica-1 Performed By: #### F BENJIE, CER, AFPTMR, FEBC #### [facility] [employer] [address] [place] [id number] Mason Foreman/Superintendant: Ang Burdick MD #### YOSEF, AATFORMERLY [facility] #### [address] [phone] Mason Foreman/Superintendant: Godfrey Bates MD Anti-Jack Kid Ry Abon 2021 Anti-Jack Kid Ry Ab <1:20 Normal <1:20 [facility] Comment on above: Result Comment: (NOT E) INTERPRETIVE INFORMATION: Ohwwp-Hywund-Rpuspkgdv Abs, IgG Liver-Kidney Microsome IgG antibody (anti-LKM), as detected by indirect immunofluorescent antibody (IFA) techniques, may be observed in patients with autoimmune hepatitis type 2 (AIH-2), AIH-2 associated with autoimmune kcrsfaszmoraperrvm-arouxcrlnmy-gmktzdlyss dystrophy (APECED), viral hepatitis C or D, and some forms of drug-induced hepatitis. This IFA does not differentiate among the four types of LKM antibodies (LKM-1, LKM-2, LKM-3, and a fourth type that recognizes CY and CY antigens). Of these, anti-LKM-1 (cytochrome [id number]) IgG antibodies are considered specific for AIH-2. This test was developed and its performance characteristics determined by [employer]. It has not been cleared or approved by the [place] Food and Drug Administration. This test was performed in a CLIA certified laboratory and is intended for clinical purposes. Performed By: [facility] [address] [place], [place] [id number] Wireless Development Manager: Itzel Hinojosa MD Performed By: #### F BENJIE, CER, AFPTMR, FEBC #### [address] [phone] Mason Foreman/Superintendant: Ang Burdick MD #### YOSEF, AATRPH #### [address] [address] Mason Foreman/Superintendant: Godfrey Bates MD Tiss Transglutam IgAon 01-25 Tiss Transglutam IgA 0.8 U/mL Normal <7.0 [facility] Comment on above: Result Comment: CELIAC INTERPRETATION <7.0 Negative 7.0-10.0 Equivocal >10.0 Positive units: U/mL Performed By: #### F BENJIE, CER, AFPTMR, FEBC #### [address] [phone] Mason Foreman/Superintendant: Ang Burdick MD #### YOSEF, AATRP #### [address] [phone] Mason Foreman/Superintendant: Godfrey Bates MD Tiss Transglutam IgGon 01-25 Tiss Transglutam IgG 0.6 U/mL Normal <7.0 [facility] Comment on above: Result Comment: CELIAC INTERPRETATION <7.0 Negative 7.0-10.0 Equivocal >10.0 Positive units: U/mL Performed By: #### F BENJIE, CER, AFPTMR, FEBC #### [address] [phone] Mason Foreman/Superintendant: Ang Burdick MD #### YOSEF, AATRPH #### [address] [address] Mason Foreman/Superintendant: Godfrey Bates MD Smooth Muscle Abon Smooth Muscle Ab 10 Units Normal 0-19 [facility] Comment on above: Result Comment: (NOT E) If F-Actin (Smooth Muscle) Antibody, IgG is negative, the Smooth Muscle Antibody titer by IFA is not performed. REFERENCE INTERVAL: F-Actin (Smooth Muscle) Antibody, IgG by THU 19 Units or less ....... Negative 20 - 30 Units .......... Weak Positive-Suggest repeat testing in two to three weeks with fresh specimen. 31 Units or greater..... Positive-Suggestive of autoimmune hepatitis type 1 or chronic active hepatitis. F-actin IgG antibodies have been shown to have increased sensitivity for autoimmune hepatitis (AIH) but lower specificity than smooth muscle antibodies (SMA). F-actin IgG antibodies can also be seen in SMA-negative disease controls (non-AIH), especially in patients with primary biliary cirrhosis and chronic hepatitis C infections. Some patients with AIH may be SMA-positive but negative for F-actin IgG. Consider testing for SMA by IFA if suspicion for AIH is strong. Performed By: [employer] [address] [place] [id number] Wireless Development Manager: Itzel Hinojosa MD Performed By: #### F BENJIE, CER, AFPTMR, FEBC #### [address] [address] Mason Foreman/Superintendant: Ang Burdick MD #### YOSEF, AATRPH #### [facility] [employer] [address] [place] [address] Mason Foreman/Superintendant: Godfrey Bates MD US ABDOMEN LIMITEDon 022 US ABDOMEN LIMITED EXAMINATION: RIGHT UPPER QUADRANT ULTRASOUND 01/24/2022 2:49 pm COMPARISON: None. HISTORY: ORDERING SYSTEM PROVIDED HISTORY: Elevated liver enzymes TECHNOLOGIST PROVIDED HISTORY: Specify organ?->GALLBLADDER Specify organ?->PANCREAS FINDINGS: LIVER: The liver demonstrates normal echogenicity without evidence of intrahepatic biliary ductal dilatation. No patent pedal flow portal vein. Liver 16 cm in length. BILIARY SYSTEM: Gallbladder is unremarkable without evidence of pericholecystic fluid, wall thickening or stones. Negative sonographic Carpio's sign. Common bile duct is within normal limits measuring 3.5 mm. RIGHT KIDNEY: The right kidney is grossly unremarkable without evidence of hydronephrosis. PANCREAS: Visualized portions of the pancreas are unremarkable. OTHER: No evidence of right upper quadrant ascites. IMPRESSION: Unremarkable right upper quadrant ultrasound. Interpreted by: Silvano Lazcano DO Signed by: Silvano Lazcano DO 01/24/22 Final result Normal [facility] Hep A Abon 01-23-2022 Hep A Ab,Total Reactive Abnormal NR [facility] Comment on above: Performed By: #### F BENJIE, CER, AFPTMR, FEBC #### [facility] [employer] [address] [place] [address] Mason Foreman/Superintendant: Ang Burdick MD #### YOSEF, AATRPH #### [facility] [address] [place] [address] Mason Foreman/Superintendant: Godfrey Bates MD Hep B Core Abo 01-23-2022 Hep B Core Ab Non-Reactive Normal NR [facility] Comment on above: Performed By: #### F BENJIE, CER, AFPTMR, FEBC #### [facility] [employer] [address] [place] [address] Mason Foreman/Superintendant: Ang Burdick MD #### ALKMAB, AATRPH #### [facility] [address] [place] [address] Mason Foreman/Superintendant: Godfrey Bates MD AFP Tumor Markeron 2 AFP (Alpha Fetoprotein) 2.3 ug/L <8.4 [facility] Comment on above: The Angel ECLIA as say is used. Results obtained with different assay methods cannot be used interchangeably. [facility] Alpha Fetoproteinon 01-23-20 22 Alpha Fetoprotein 2.3 ug/L Normal <8.4 [facility] Comment on above: Result Comment: The Angel ECLIA assay is used. Results obtained with different assay methods cannot be used interchangeably. Performed By: #### F BENJIE, CER, AFPTMR, FEBC #### [address] [address] Mason Foreman/Superintendant: Ang Burdick MD #### ALKMAB, AATRPH #### [facility] [address] [place], [place] [phone] Mason Foreman/Superintendant: Godfrey Bates MD Ceruloplasminon 01-22-2022 Ceruloplasmin 23 mg/dL Normal 15-30 [facility] Comment on above: Performed By: #### F BENJIE, CER, AFPTMR, FEBC #### [address] [phone] Mason Foreman/Superintendant: Ang Burdick MD #### ALKMASuhas, AATRPH #### [facility] [address] [place], [place] [phone] Mason Foreman/Superintendant: Godfrey Bates MD Ceruloplasmin 23 mg/dL 15 - 30 mg/dL [facility] Ferritinon 01-22-2022 Ferritin [Mass/Vol] 218 ng/mL Normal 30-400 [facility] Comment on above: Performed By: #### F BENJIE, CER, AFPTMR, FEBC #### [address] [address] Mason Foreman/Superintendant: Ang Burdick MD #### PARTHMASuhas, AATRPH #### [facility] [address] [place], [place] [phone] Mason Foreman/Superintendant: Godfrey Bates MD Ferritin [Mass/Vol] 218 ng/mL 30 - 400 ng/mL [facility] Hep A Ab,IgMon 01-22-2022 Hep A Ab,IgM Non-Reactive Normal NR [facility] Comment on above: Performed By: #### F BENJIE, CER, AFPTMR, FEBC #### [address] [address] Mason Foreman/Superintendant: Ang Burdick MD #### ALKMAB, AATRPH #### [facility] [address] [place], [place] [phone] Mason Foreman/Superintendant: Godfrey Bates MD Hep B Core Ab,IgMon 01-23-20 Hep B Core Ab,IgM Non-Reactive Normal NR [facility] Comment on above: Performed By: #### F BENJIE, CER, AFPTMR, FEBC #### [address] [phone] Mason Foreman/Superintendant: Ang Burdick MD #### ALKMAB, AATRPH #### [facility] [address] [place], [place] [phone] Mason Foreman/Superintendant: Godfrey Bates MD Hep B Surf Abon 01-22-2022 Hep B Surf Ab <3.50 Normal <10 [facility] Comment on above: Result Comment: REFERENCE RANGE: <10.0 NON-REACTIVE/NOT IMMUNE >=10.0 REACTIVE/IMMUNE Performed By: #### F BENJIE, CER, AFPTMR, FEBC #### [address] [phone] Mason Foreman/Superintendant: Ang Burdick MD #### ALKMAB, AATRPH #### [facility] [address] [place], [place] [phone] Mason Foreman/Superintendant: Godfrey Bates MD Hep B Surf Agon 01-22-2022 Hep B Surf Ag Non-Reactive Normal NR [facility] Comment on above: Performed By: #### F BENJIE, CER, AFPTMR, FEBC #### [address] [phone] Mason Foreman/Superintendant: Ang Burdick MD #### ALKMAB, AATRPH #### [facility] [address] [place] [address] Mason Foreman/Superintendant: Godfrey Bates MD Hep C Abon 01-22-2022 Hep C Ab Non-Reactive Normal NR [facility] Comment on above: Result Comment: The hepatitis C procedure used in our laboratory is a Chemiluminescent test specific for three recombinant HCV antigens. A negative anti-HCV result indicates that the antibodies to hepatitis C virus are not present at this time. Individuals with reactive anti-HCV should be considered infected and infectious until proven otherwise. Confirmation of all equivocal or reactive results is recommended by ordering HCV RNA by PCR. Performed By: #### F BENJIE, CER, AFPTMR, FEBC #### [facility] [address] [place] [address] Mason Foreman/Superintendant: Ang Burdick MD #### ALKMAB, AATRPH #### [facility] [address] [place] [address] Mason Foreman/Superintendant: Godfrey Bates MD Hepatitis A Antibody, IgMon 01-22-2022 HAV IgM IA Qn (S) Non-Reactive NONREACTIVE [facility] Hepatitis A Antibody, Totalo n 01-22-2022 HAV Ab IA Qn Reactive Abnormal NONREACTIVE [facility] Interpretation and review of laboratory results Abnormal [facility] Hepatitis B Core Antibody, I gMon 01-22-2022 Hep B Core Ab, IgM Non-Reactive NONREACTIVE [facility] Hepatitis B Core Antibody, T otalon 01-22-2022 Hep B Core Total Ab Non-Reactive NONREACTIVE [facility] Hepatitis B Surface Antibody on 01-22-2022 HBV surface Ab (S) [Titer] <3.50 <10 mIU/mL [facility] Comment on above: REFERENCE RANGE: <10.0 NON-REACTIVE/NOT IMMUNE >=10.0 REACTIVE/IMMUNE [facility] Hepatitis B Surface Antigeno n 01-22-2022 Hepatitis B Surface Ag Non-Reactive NONREACTIVE [facility] Hepatitis C Antibodyon 01-22 Hepatitis C Ab Non-Reactive NONREACTIVE [facility] Comment on above: The hepatitis C procedure used in our laboratory is a Chemiluminescent test specific for three recombinant HCV antigens. A negative anti-HCV result indicates that the antibodies to hepatitis C virus are not present at this time. Individuals with reactive anti-HCV should be considered infected and infectious until proven otherwise. Confirmation of all equivocal or reactive results is recommended by ordering HCV RNA by PCR. IgAon 01-22-2022 IgA [Mass/Vol] 385 mg/dL Normal 70-400 [facility] Comment on above: Performed By: #### F BENJIE, CER, AFPTMR, FEBC #### [address] [address] Mason Foreman/Superintendant: Ang Burdick MD #### ALKMASuhas, AATRPH #### [facility] [address] [place], [place] [phone] Mason Foreman/Superintendant: Godfrey Bates MD IgA [Mass/Vol] 385 mg/dL 70 - 400 mg/dL [facility] Iron Binding Cap.on 01-23-20 22 % Fe Saturation 25 % Normal 20-55 [facility] Comment on above: Performed By: #### F BENJIE, CER, AFPTMR, FEBC #### [address] [address] Mason Foreman/Superintendant: Ang Burdick MD #### ALKMASuhas, AATRPH #### [facility] [address] [place], [place] [phone] Mason Foreman/Superintendant: Godfrey Bates MD Iron [Mass/Vol] 66 ug/dL Normal 59-158 [facility] Comment on above: Performed By: #### F BENJIE, CER, AFPTMR, FEBC #### [address] [address] Mason Foreman/Superintendant: Ang Burdick MD #### ALKMASuhas, AATRPH #### [facility] [address] [place], [place] [phone] Mason Foreman/Superintendant: Godfrey Bates MD Total Fe Binding Cap 267 ug/dL Normal 250-450 [facility] Comment on above: Performed By: #### F BENJIE, CER, AFPTMR, FEBC #### [facility] [address] [place] [address] Mason Foreman/Superintendant: Ang Burdick MD #### ALKMASuhas, AATRPH #### [facility] [address] [place] [address] Mason Foreman/Superintendant: Godfrey Bates MD Unbound Fe Bind Cap 201 ug/dL Normal 112-347 [facility] Comment on above: Performed By: #### F BENJIE, CER, AFPTMR, FEBC #### [facility] [address] [place] [address] [phone] Mason Foreman/Superintendant: Ang Burdick MD #### YOSEF, AATRPH #### [facility] [address] [place] [address] Mason Foreman/Superintendant: Godfrey Bates MD Iron and TIBCon 01-22-2022 Iron [Mass/Vol] 66 ug/dL 59 - 158 ug/dL [facility] Iron Saturation 25 % 20 - 55 % [facility] TIBC 267 ug/dL 250 - 450 ug/dL [facility] UIBC 201 ug/dL 112 - 347 ug/dL [facility] No Panel Informationon 01-22 [facility] C-Reactive Proteinon 022 CRP [Mass/Vol] 6.1 mg/L High 0.0-5.0 [facility] Comment on above: Performed By: #### F BENJIE, CER, AFPTMR, FEBC #### [facility] [address] [place] [phone] Mason Foreman/Superintendant: Ang Burdick MD #### YOSEF AATRPH #### [facility] [address] [place] [address] Mason Foreman/Superintendant: Godfrey Bates MD IgAon 01-10-2022 IgA [Mass/Vol] 356 mg/dL Normal 70-400 [facility] Comment on above: Performed By: #### F BENJIE, CER, AFPTMR, FEBC #### [facility] [address] [place] [address] [phone] Mason Foreman/Superintendant: Ang Burdick MD #### YOSEF, AATRPH #### [facility] [address] [place], [place] [phone] Mason Foreman/Superintendant: Godfrey Bates MD Tiss Transglutam IgAon 01-10 Tiss Transglutam IgA 0.9 U/mL Normal <7.0 [facility] Comment on above: Result Comment: CELIAC INTERPRETATION <7.0 Negative 7.0-10.0 Equivocal >10.0 Positive units: U/mL Performed By: #### F BENJIE, CER, AFPTMR, FEBC #### [facility] [address] [place] [address] [phone] Mason Foreman/Superintendant: Ang Burdick MD #### ALKMAB, AATRPH #### [facility] [address] [place], [place] [phone] Mason Foreman/Superintendant: Godfrey Bates MD Tiss Transglutam IgGon 01-10 Tiss Transglutam IgG 0.7 U/mL Normal <7.0 [facility] Comment on above: Result Comment: CELIAC INTERPRETATION <7.0 Negative 7.0-10.0 Equivocal >10.0 Positive units: U/mL Performed By: #### F BENJIE, CER, AFPTMR, FEBC #### [address] [phone] Mason Foreman/Superintendant: Ang Burdick MD #### ALKMASuhas, AATRPH #### [facility] [address] [place], [place] [phone] Mason Foreman/Superintendant: Godfrey Bates MD Amylaseon 2022 Amylase [Catalytic activity/Vol] 91 U/L Normal 28-100 [facility] Comment on above: Performed By: #### F BENJIE, CER, AFPTMR, FEBC #### [facility] [address] [place] [address] [phone] Mason Foreman/Superintendant: Ang Burdick MD #### ALKMAB, AATRPH #### [facility] [address] [place], [place] [phone] Mason Foreman/Superintendant: Godfrey Bates MD Amylase [Catalytic activity/Vol] 91 U/L 28 - 100 U/L [facility] Hepatic Function Panelon Albumin [Mass/Vol] 4.5 g/dL 3.5 - 5.2 g/dL [facility] ALP (Bld) [Catalytic activity/Vol] 67 U/L 40 - 129 U/L [facility] ALT [Catalytic activity/Vol] 22 U/L 5 - 41 U/L [facility] AST [Catalytic activity/Vol] 20 U/L <40 [facility] Bilirubin [Mass/Vol] 0.39 mg/dL 0.3 - 1 .2 mg/dL [facility] Bilirubin, Indirect 0.28 mg/dL 0.00 - 1 .00 mg/dL [facility] Bilirubin.indirect [Mass/Vol] 0.11 mg/dL <0.31 [facility] Free PSA/Total PSA [Mass fraction] 7.5 g/dL 6.4 - 8.3 g/dL [facility] IgAon 2022 IgA [Mass/Vol] 356 mg/dL 70 - 400 mg/dL [facility] Lipaseon 2022 Lipase [Catalytic activity/Vol] 71 U/L High 13-60 [facility] Comment on above: Performed By: #### F BENJIE, CER, AFPTMR, FEBC #### [employer] [facility] [place], [place] [phone] Mason Foreman/Superintendant: Ang Burdick MD #### YOSEF AATFORMERLY [facility] #### [address] [address] Mason Foreman/Superintendant: Godfrey Bates MD Interpretation and review of laboratory results Abnormal [facility] Lipase [Catalytic activity/Vol] 71 U/L High 13 - 60 U/L [facility] Liver Profileon 2022 Albumin [Mass/Vol] 4.5 g/dL Normal 3.5-5.2 [facility] Comment on above: Performed By: #### F BENJIE, CER, AFPTMR, FEBC #### [employer] [facility] [place], [place] [phone] Mason Foreman/Superintendant: Ang Burdick MD #### ALKMAB, AATRPH #### [facility] [address] [place] [address] Mason Foreman/Superintendant: Godfrey Bates MD Alkaline Phos 67 U/L Normal 40-129 [facility] Comment on above: Performed By: #### F BENJIE, CER, AFPTMR, FEBC #### [address] [phone] Mason Foreman/Superintendant: Ang Burdick MD #### ALKMAB, AATRPH #### [facility] [address] [place] [address] Mason Foreman/Superintendant: Godfrey Bates MD ALT [Catalytic activity/Vol] 22 U/L Normal 5-41 [facility] Comment on above: Performed By: #### F BENJIE, CER, AFPTMR, FEBC #### [address] [phone] Mason Foreman/Superintendant: Ang Burdick MD #### ALKMAB, AATRPH #### [facility] [address] [place] [address] [phone] Mason Foreman/Superintendant: Godfrey Bates MD AST [Catalytic activity/Vol] 20 U/L Normal <40 [facility] Comment on above: Performed By: #### F BENJIE, CER, AFPTMR, FEBC #### [address] [id number] Mason Foreman/Superintendant: Ang Burdick MD #### ALKMAB, AATRPH #### [facility] [address] [place], [place] [id number] Mason Foreman/Superintendant: Godfrey Bates MD Bilirubin [Mass/Vol] 0.39 mg/dL Normal 0.3-1.2 [facility] Comment on above: Performed By: #### F BENJIE, CER, AFPTMR, FEBC #### [address] [id number] Mason Foreman/Superintendant: Ang Burdick MD #### ALKMAB, AATRPH #### [facility] [address] [place], [place] [id number] Mason Foreman/Superintendant: Godfrey Bates MD Bilirubin, Indirect 0.28 mg/dL Normal 0.00-1.00 [facility] Comment on above: Performed By: #### F BENJIE, CER, AFPTMR, FEBC #### [address] [address] Mason Foreman/Superintendant: Ang Burdick MD #### ALKMAB, AATRPH #### [facility] [address] [place], [place] [id number] Mason Foreman/Superintendant: Godfrey Bates MD Bilirubin.indirect [Mass/Vol] 0.11 mg/dL Normal <0.31 [facility] Comment on above: Performed By: #### F BENJIE, CER, AFPTMR, FEBC #### [address] [address] Mason Foreman/Superintendant: Ang Burdick MD #### ALKMAB, AATRPH #### [facility] [address] [place], [place] [id number] Mason Foreman/Superintendant: Godfrey Bates MD Protein [Mass/Vol] 7.5 g/dL Normal 6.4-8.3 [facility] Comment on above: Performed By: #### F BENJIE, CER, AFPTMR, FEBC #### [address] [address] Mason Foreman/Superintendant: Ang Burdick MD #### ALKMAB, AATRPH #### [facility] [address] [place] [address] Mason Foreman/Superintendant: Godfrey Bates MD No Panel Informationon 01-09 [facility] Sedimentation Rateon 022 Sedimentation Rate 5 mm/Hr Normal 0-20 [facility] Comment on above: Performed By: #### A MY, LIP, LIVP, SED, CRP #### [facility] [address] [place] [address] Mason Foreman/Superintendant: Javier Dougherty DO #### TTIGG, TTIGA, IGA #### [facility] [address] [place] [address] Mason Foreman/Superintendant: Ang Burdick MD Sed Rate 5 [facility] CBC AUTO DIFFon 12-07-2021 BASO # 0.0 103/ul Normal 0.0-0.1 [facility] Comment on above: Performed By: #### C BC #### [facility] [address] [place] [address] Dr. Su Landrum Basophils/100 WBC (Bld) 0.8 % Normal 0.2-2.0 [facility] Comment on above: Performed By: #### C BC #### [facility] [address] [place] [address] Dr. Su Landrum EO # 0.1 103/ul Normal 0.0-0.7 [facility] Comment on above: Performed By: #### C BC #### [facility] [address] [place] [address] Dr. Su Landrum Eosinophils/100 WBC (Bld) 1.9 % Normal 0.9-7.0 [facility] Comment on above: Performed By: #### C BC #### [facility] [address] [place] [address] Dr. Su Landrum Erythrocyte distribution width (RBC) [Ratio] 11.9 % Normal 11.0-15.0 [facility] Comment on above: Performed By: #### C BC #### [facility] [address] [place] [address] Dr. Su Landrum Hematocrit (Bld) [Volume fraction] 44.8 % Normal 42.0-54.0 [facility] Comment on above: Performed By: #### C BC #### [facility] [address] [place] [address] Dr. Su Landrum Hemoglobin (Bld) [Mass/Vol] 15.5 g/dL Normal 14.0-18.0 [facility] Comment on above: Performed By: #### C BC #### [facility] [address] [place] [address] Dr. Su Landrum IG # 0.01 10e3/ul Normal 0.00-0.03 [facility] Comment on above: Performed By: #### C BC #### [facility] [address] [place] [address] Dr. Su Ladnrum IG % 0.2 % Normal 0.0-0.5 [facility] Comment on above: Performed By: #### C BC #### [facility] [address] [place] [address] Dr. Su Landrum LYMPH # 1.4 103/ul Normal 1.2-3.8 [facility] Comment on above: Performed By: #### C BC #### [facility] [address] [place] [address] Dr. Su Landrum Lymphocytes/100 WBC (Bld) 25.9 % Normal 20.5-60.0 [facility] Comment on above: Performed By: #### C BC #### [facility] [address] [place] [address] Dr. Su Landrum MANUAL DIFF REQ NO Normal [facility] Comment on above: Performed By: #### C BC #### [facility] [address] [place] [address] Dr. Su Landrum MCH (RBC) [Entitic mass] 30.5 pg Normal 25.9-34.0 [facility] Comment on above: Performed By: #### C BC #### [facility] [address] [place] [address] Dr. Su Landrum MCHC (RBC) [Mass/Vol] 34.6 g/dL Normal 29.9-35.2 [facility] Comment on above: Performed By: #### C BC #### [facility] [address] [place] [address] Dr. Su Landrum MCV (RBC) [Entitic vol] 88.2 fL Normal 80.0-94.0 [facility] Comment on above: Performed By: #### C BC #### [facility] [address] [address] [address] Su Landrum MONO # 0.3 103/ul Normal 0.3-0.8 [facility] Comment on above: Performed By: #### C BC #### [facility] [address] [address] [address] Su Landrum Monocytes/100 WBC (Bld) 4.9 % Normal 1.7-12.0 [facility] Comment on above: Performed By: #### C BC #### [facility] [address] [address] [address] Su Landrum NEUT # 3.5 103/ul Normal 1.4-6.5 [facility] Comment on above: Performed By: #### C BC #### [facility] [address] [place] [address] Dr. Su Landrum Neutrophils/100 WBC (Bld) 66.3 % Normal 43.0-75.0 [facility] Comment on above: Performed By: #### C BC #### [facility] [address] [place] [address] Dr. Su Landrum Platelet mean volume (Bld) [Entitic vol] 9.6 fL Normal 9.5-13.5 [facility] Comment on above: Performed By: #### C BC #### [facility] [address] [place] [address] Dr. Su Landrum PLT 214 103/ul Normal 150-450 [facility] Comment on above: Performed By: #### C BC #### [facility] [address] [place] [address] Dr. Su Landrum RBC 5.08 106/ul Normal 4.70-6.10 [facility] Comment on above: Performed By: #### C BC #### [facility] [address] [place] [address] Dr. Su Landrum WBC 5.3 103/ul Normal 4.0-11.0 [facility] Comment on above: Performed By: #### C BC #### [facility] [address] [place] [address] Dr. Su Landrum LIPASEon 12-07-2021 Lipase [Catalytic activity/Vol] 130.0 U/L Normal 23.0-300.0 [facility] Comment on above: Performed By: #### L IPA, CMP #### [facility] [address] [place] [address] Dr. Su Landrum PROF 14(COMP METB)on 022 Albumin [Mass/Vol] 3.7 g/dL Normal 3.4-5.0 [facility] Comment on above: Performed By: #### L IPA, CMP #### [facility] [address] [place] [address] Dr. Su Landrum Albumin/Globulin [Mass ratio] 1.0 {ratio} Normal [facility] Comment on above: Performed By: #### L IPA, CMP #### [facility] [address] [place] [address] Dr. Su Landrum ALP [Catalytic activity/Vol] 75 U/L Normal 46-116 [facility] Comment on above: Performed By: #### L IPA, CMP #### [facility] [address] [place] [address] Dr. Su Landrum ALT [Catalytic activity/Vol] 30 U/L Normal 16-63 [facility] Comment on above: Performed By: #### L IPA, CMP #### [facility] [address] [place] [address] Dr. Su Landrum Anion gap [Moles/Vol] 10.3 mmol/L Normal [facility] Comment on above: Performed By: #### L IPA, CMP #### [facility] [address] [place] [address] Dr. Su Landrum AST [Catalytic activity/Vol] 17 U/L Normal 15-37 [facility] Comment on above: Performed By: #### L IPA, CMP #### [facility] [address] [place] [address] Dr. Su Landrum Bilirubin [Mass/Vol] 0.5 mg/dL Normal 0.2-1.3 [facility] Comment on above: Performed By: #### L IPA, CMP #### [facility] [address] [address] [address] Su Landrum Calcium [Mass/Vol] 8.6 mg/dL Normal 8.5-10.1 [facility] Comment on above: Performed By: #### L IPA, CMP #### [facility] [address] [address] [address] Su Landrum Chloride [Moles/Vol] 107 mmol/L Normal 98-107 [facility] Comment on above: Performed By: #### L IPA, CMP #### [facility] [address] [address] [address] uS Landrum CO2 [Moles/Vol] 29.5 mmol/L Normal 22.0-30.0 [facility] Comment on above: Performed By: #### L IPA, CMP #### [facility] [address] [address] [address] Su Landrum Creatinine [Mass/Vol] 0.96 mg/dL Normal 0.66-1.25 [facility] Comment on above: Performed By: #### L IPA, CMP #### [facility] [address] [address] [address] Su Landrum EGFR-AF GERMAN >60 Normal >=60 [facility] Comment on above: Performed By: #### L IPA, CMP #### [facility] [address] [address] [address] Su Landrum EGFR-NON AF GERMAN >60 Normal >=60 [facility] Comment on above: Performed By: #### L IPA, CMP #### [facility] [address] [address] [address] Su Landrum Globulin (S) [Mass/Vol] 3.7 g/dL Normal [facility] Comment on above: Performed By: #### L IPA, CMP #### [facility] [address] [address] [address] Su Landrum Glucose [Mass/Vol] 112 mg/dL Critically high 74-106 [facility] Comment on above: Performed By: #### L IPA, CMP #### [facility] [address] [address] [address] Su Landrum Potassium [Moles/Vol] 3.8 mmol/L Normal 3.4-5.0 [facility] Comment on above: Performed By: #### L IPA, CMP #### [facility] [address] [address] [address] Su Landrum Protein [Mass/Vol] 7.4 g/dL Normal 6.1-8.2 [facility] Comment on above: Performed By: #### L IPA, CMP #### [facility] [address] [address] [address] Su Landrum Sodium [Moles/Vol] 143 mmol/L Normal 137-145 [facility] Comment on above: Performed By: #### L IPA, CMP #### [facility] [address] [place] [address] Dr. Su Landrum Urea nitrogen [Mass/Vol] 10.0 mg/dL Normal 7.0-18.0 [facility] Comment on above: Performed By: #### L IPA, CMP #### [facility] [address] [address] [address] Su Landrum Urea nitrogen/Creatinine [Mass ratio] 10.4 mg/mg Normal [facility] Comment on above: Performed By: #### L IPA, CMP #### [facility] [address] [place] [address] Dr. Su Landrum PTon 10-17-2021 INR Coag (PPP) [Relative time] 1.1 {INR} Normal [facility] Comment on above: Result Comment: Non-therapeutic Range: INR = 0.9-1.2 Therapeutic Range: Moderate Anticoagulant Intensity: INR = 2.0-3.0 High Anticoagulant Intensity: INR = 2.5-3.5 Performed By: #### F BENJIE, CER, AFPTMR, FEBC #### [employer] [facility] [place] [address] Mason Foreman/Superintendant: Ang Burdick MD #### ALKLORY, AATCAROLA #### [facility] [address] [place] [address] Mason Foreman/Superintendant: Godfrey Bates MD PT Coag (PPP) [Time] 14.3 s Normal 11.8-14.6 [facility] Comment on above: Performed By: #### F BENJIE, CER, AFPTMR, FEBC #### [address] [place], [place] [id number] Mason Foreman/Superintendant: Ang Burdick MD #### ALKMAB, AATRPH #### [facility] [address] [place] [address] Mason Foreman/Superintendant: Godfrey Bates MD Amylaseon 12-12-2020 Amylase [Catalytic activity/Vol] 76 U/L Normal 28-100 [facility] Comment on above: Performed By: #### T ROPI, CDP, LIP, RANGEL, CMPX #### [address] [place] [id number] Mason Foreman/Superintendant: Nando Crawley MD Lipaseon 12-12-2020 Lipase [Catalytic activity/Vol] 44 U/L Normal 13-60 [facility] Comment on above: Performed By: #### T ROPI, CDP, LIP, RANGEL, CMPX #### [place] [id number] Mason Foreman/Superintendant: Nando Crawley MD Liver Profileon 12-12-2020 AST [Catalytic activity/Vol] 39 U/L Normal <40 [facility] Comment on above: Performed By: #### T ROPI, CDP, LIP, RANGEL, CMPX #### [address] [place] [id number] Mason Foreman/Superintendant: Nando Crawley MD Bilirubin, Indirect 0.25 mg/dL Normal 0.00-1.00 [facility] Comment on above: Performed By: #### T ROPI, CDP, LIP, RANGEL, CMPX #### [address] [id number] Mason Foreman/Superintendant: Nando Crawley MD Bilirubin.direct [Mass/Vol] 0.09 mg/dL Normal <0.31 [facility] Comment on above: Performed By: #### T ROPI, CDP, LIP, RANGEL, CMPX #### [address] [id number] Mason Foreman/Superintendant: Nando Crawley MD Albumin [Mass/Vol] 4.3 g/dL Normal 3.5-5.2 [facility] Comment on above: Performed By: #### T ROPI, CDP, LIP, RANGEL, CMPX #### [place] [address] Mason Foreman/Superintendant: Nando Crawley MD Albumin/Globulin [Mass ratio] 1.3 {ratio} Normal 1.0-2.5 [facility] Comment on above: Performed By: #### T ROPI, CDP, LIP, RANGEL, CMPX #### [place] [address] Mason Foreman/Superintendant: Nando Crawley MD Alkaline Phos 57 U/L Normal 40-129 [facility] Comment on above: Performed By: #### T ROPI, CDP, LIP, RANGEL, CMPX #### [address] [place] [id number] Mason Foreman/Superintendant: Nando Crawley MD ALT [Catalytic activity/Vol] 44 U/L High 5-41 [facility] Comment on above: Performed By: #### T ROPI, CDP, LIP, RANGEL, CMPX #### [address] [id number] Mason Foreman/Superintendant: Nando Crawley MD Bilirubin Ql (U) 0.34 mg/dL Normal 0.3-1.2 [facility] Comment on above: Performed By: #### T KUSHAL GARCIA, LIP, RANGEL, CMPX #### [address] [place] [id number] Mason Foreman/Superintendant: Nando Crawley MD Protein [Mass/Vol] 7.5 g/dL Normal 6.4-8.3 [facility] Comment on above: Performed By: #### T KUSHAL GARCIA, LIP, RANGEL, CMPX #### [address] [place] [id number] Mason Foreman/Superintendant: Nando Crawley MD Testosterone, Totalon 2020 Testosterone [Mass/Vol] 364 ng/dL Normal 220-1000 [facility] Comment on above: Performed By: #### T KUSHAL GARCIA LIP, RANGEL, CMPX #### [place] [address] Mason Foreman/Superintendant: Nando Crawley MD Thyroid Stim. Horm.on 2020 TSH Qn 1.95 m[IU]/L Normal 0.30-5.00 [facility] Comment on above: Performed By: #### T KUSHAL GARCIA, LIP, RANGEL, CMPX #### [place] [address] Mason Foreman/Superintendant: Nando Crawley MD Thyroxine T4on 12-12-2020 T4 [Mass/Vol] 8.6 ug/dL Normal 4.5-10.9 [facility] Comment on above: Performed By: #### T KUSHAL GARCIA, LIP, RANGEL, CMPX #### [address] [place] [id number] Mason Foreman/Superintendant: Nando Crawley MD Triiodothyronine T3on 2020 Triiodothyronine T3 155 ng/dL Normal 60-181 [facility] Comment on above: Performed By: #### T KUSHAL GARCIA LIP, AMY, CMPX #### [facility] [address] [place] [address] Mason Foreman/Superintendant: Nando Crawley MD Amylaseon 12-11-2020 Amylase [Catalytic activity/Vol] 76 U/L 28 - 100 U/L [facility] Work Phone: CT ABDOMEN PELVIS W IV CONTR Elissa 12-11-2020 CT ABDOMEN PELVIS W IV CONTRAST EXAMINATION: CT OF THE ABDOMEN AND PELVIS WITH CONTRAST 12/11/2020 1:14 pm TECHNIQUE: CT of the abdomen and pelvis was performed with the administration of intravenous contrast. Multiplanar reformatted images are provided for review. Dose modulation, iterative reconstruction, and/or weight based adjustment of the mA/kV was utilized to reduce the radiation dose to as low as reasonably achievable. COMPARISON: 11/17/2020 HISTORY: ORDERING SYSTEM PROVIDED HISTORY: Elevated pancreatic enzyme TECHNOLOGIST PROVIDED HISTORY: Reason for Exam: f/u diverticulitis Acuity: Chronic Type of Exam: Subsequent/Follow-up Relevant Medical/Surgical History: hx former smoker FINDINGS: Lower Chest: Lung bases are clear. Organs: Liver is normal in size and density. No focal masses identified. No evidence of intrahepatic ductal dilatation. Spleen is normal size. The gallbladder is unremarkable. Both adrenal glands are normal. Pancreas is normal in appearance. Left parapelvic renal cysts. The kidneys are otherwise normal in size and attenuation without evidence of hydronephrosis or renal calculi. GI/Bowel: The visualized bowel and mesentery show no mass lesions. Mild colonic diverticulosis. No evidence of diverticulitis. Normal appendix. Pelvis: No intrapelvic mass is identified. Bladder and rectum are intact. Peritoneum/Retroperi toneum: No free fluid. No lymphadenopathy. No evidence of pneumoperitoneum. Bones/Soft Tissues: . The abdominal and pelvic may are unremarkable. Mild degenerative changes in the lower lumbar spine.. No acute bony abnormalities. Vascular calcifications are seen compatible with atherosclerotic disease. IMPRESSION: No acute intra-abdominal or intrapelvic abnormalities are noted. No evidence of acute diverticulitis or pancreatitis Interpreted by: Nahum Roche MD Signed by: Nahum Roche MD 12/11/20 Final result Normal [facility] CT ABDOMEN PELVIS W IV CONTR AST Additional Contrast? Oralon 12-11-2020 No acute intra-abdominal or intrapelvic abnormalities are noted. No evidence of acute diverticulitis or pancreatitis [employer] Phone: EXAMINATION: CT OF THE ABDOMEN AND PELVIS WITH CONTRAST 12/11/2020 1:14 pm TECHNIQUE: CT of the abdomen and pelvis was performed with the administration of intravenous contrast. Multiplanar reformatted images are provided for review. Dose modulation, iterative reconstruction, and/or weight based adjustment of the mA/kV was utilized to reduce the radiation dose to as low as reasonably achievable. COMPARISON: 11/17/2020 HISTORY: ORDERING SYSTEM PROVIDED HISTORY: Elevated pancreatic enzyme TECHNOLOGIST PROVIDED HISTORY: Reason for Exam: f/u diverticulitis Acuity: Chronic Type of Exam: Subsequent/Follow-up Relevant Medical/Surgical History: hx former smoker FINDINGS: Lower Chest: Lung bases are clear. Organs: Liver is normal in size and density. No focal masses identified. No evidence of intrahepatic ductal dilatation. Spleen is normal size. The gallbladder is unremarkable. Both adrenal glands are normal. Pancreas is normal in appearance. Left parapelvic renal cysts. The kidneys are otherwise normal in size and attenuation without evidence of hydronephrosis or renal calculi. GI/Bowel: The visualized bowel and mesentery show no mass lesions. Mild colonic diverticulosis. No evidence of diverticulitis. Normal appendix. Pelvis: No intrapelvic mass is identified. Bladder and rectum are intact. Peritoneum/Retroperi toneum: No free fluid. No lymphadenopathy. No evidence of pneumoperitoneum. Bones/Soft Tissues: . The abdominal and pelvic may are unremarkable. Mild degenerative changes in the lower lumbar spine.. No acute bony abnormalities. Vascular calcifications are seen compatible with atherosclerotic disease. [employer] Phone: Frank, pn Incoming Radiant Results From [employer] - 12/11/2020 6:30 PM EDT EXAMINATION: CT OF THE ABDOMEN AND PELVIS WITH CONTRAST 12/11/2020 1:14 pm TECHNIQUE: CT of the abdomen and pelvis was performed with the administration of intravenous contrast. Multiplanar reformatted images are provided for review. Dose modulation, iterative reconstruction, and/or weight based adjustment of the mA/kV was utilized to reduce the radiation dose to as low as reasonably achievable. COMPARISON: 11/17/2020 HISTORY: ORDERING SYSTEM PROVIDED HISTORY: Elevated pancreatic enzyme TECHNOLOGIST PROVIDED HISTORY: Reason for Exam: f/u diverticulitis Acuity: Chronic Type of Exam: Subsequent/Follow-up Relevant Medical/Surgical History: hx former smoker FINDINGS: Lower Chest: Lung bases are clear. Organs: Liver is normal in size and density. No focal masses identified. No evidence of intrahepatic ductal dilatation. Spleen is normal size. The gallbladder is unremarkable. Both adrenal glands are normal. Pancreas is normal in appearance. Left parapelvic renal cysts. The kidneys are otherwise normal in size and attenuation without evidence of hydronephrosis or renal calculi. GI/Bowel: The visualized bowel and mesentery show no mass lesions. Mild colonic diverticulosis. No evidence of diverticulitis. Normal appendix. Pelvis: No intrapelvic mass is identified. Bladder and rectum are intact. Peritoneum/Retroperi toneum: No free fluid. No lymphadenopathy. No evidence of pneumoperitoneum. Bones/Soft Tissues: . The abdominal and pelvic may are unremarkable. Mild degenerative changes in the lower lumbar spine.. No acute bony abnormalities. Vascular calcifications are seen compatible with atherosclerotic disease. IMPRESSION: No acute intra-abdominal or intrapelvic abnormalities are noted. No evidence of acute diverticulitis or pancreatitis [employer] Phone: Hepatic Function Panelon Albumin [Mass/Vol] 4.3 g/dL 3.5 - 5.2 g/dL [facility]: Albumin/Globulin [Mass ratio] 1.3 {ratio} [employer] Phone: ALP [Catalytic activity/Vol] 57 U/L 40 - 129 U/L [employer] Phone: ALT [Catalytic activity/Vol] 44 U/L High 5 - 41 U/L [employer] Phone: AST [Catalytic activity/Vol] 39 U/L <40 [employer] Phone: Bilirubin Ql (U) 0.34 mg/dL 0.3 - 1.2 mg/dL [facility] [employer] Phone: Bilirubin, Indirect 0.25 mg/dL 0.00 - 1 .00 mg/dL [facility] [employer] Work Phone: Bilirubin.direct [Mass/Vol] 0.09 mg/dL <0.31 [facility] [employer] Work Phone: Globulin (S) [Mass/Vol] NOT REPORTED 1.5 - 3.8 g/dL [facility] [employer] Phone: Interpretation and review of laboratory results Abnormal [facility] [employer] Work Phone: Protein [Mass/Vol] 7.5 g/dL 6.4 - 8.3 g/dL [facility] [employer] Work Phone: Lipaseon 12-11-2020 Lipase [Catalytic activity/Vol] 44 U/L 13 - 60 U/L [facility] [employer] Phone: Liver Profileon 12-11-2020 Globulin (S) [Mass/Vol] NOT REPORTED Normal 1.5-3.8 [facility] Comment on above: Performed By: #### T JOSE, CDP, LIP, RANGEL, CMPX #### [place] [id number] Mason Foreman/Superintendant: Nando Crawley MD T3on 12-11-2020 T3, Total 155 ng/dL 60 - 181 ng/dL [facility] Work Phone: T4on 12-11-2020 T4, Total 8.6 ug/dL 4.5 - 10.9 ug/dL [facility] [employer] Work Phone: TSH without Reflexon 021 TSH Qn 1.95 m[IU]/L [facility] [employer] Work Phone: Testosteroneon 12-11-2020 Testosterone [Mass/Vol] 364 ng/dL 220 - 1000 ng/dL [facility] Work Phone: Amylaseon 11-18-2020 Amylase [Catalytic activity/Vol] 109 U/L High 28-100 [facility] Comment on above: Performed By: #### T ROPI, CDP, LIP, RANGEL, CMPX #### [place] [address] Mason Foreman/Superintendant: Nando Crawley MD CBC with Diffon 11-18-2020 Abs. Basophil 0.10 k/uL Normal 0.0-0.2 [facility] Comment on above: Performed By: #### T JOSE, CDP, LIP, RANGEL, CMPX #### [place] [address] Mason Foreman/Superintendant: Nando Crawley MD Abs.Neutrophil (Seg) 5.20 k/uL Normal 1.8-7.7 [facility] Comment on above: Performed By: #### T GREGORI, CDP, LIP, RANGEL, CMPX #### [place] [address] Mason Foreman/Superintendant: Nando Crawley MD Basophils/100 WBC (Bld) 1 % Normal 0-2 [facility] Comment on above: Performed By: #### T JOSE, CDP, LIP, RANGEL, CMPX #### [place] [address] Mason Foreman/Superintendant: Nando Crawley MD Eosinophils (Bld) [#/Vol] 0.10 10*3/uL Normal 0.0-0.4 [facility] Comment on above: Performed By: #### T ROPI, CDP, LIP, RANGEL, CMPX #### [place] [address] Mason Foreman/Superintendant: Nando Crawley MD Eosinophils/100 WBC (Bld) 1 % Normal 1-4 [facility] Comment on above: Performed By: #### T ROPI, CDP, LIP, RANGEL, CMPX #### [facility] [address] [place] [address] Mason Foreman/Superintendant: Nando Crawley MD Erythrocyte distribution width (RBC) [Ratio] 12.2 % Low 12.5-15.4 [facility] Comment on above: Performed By: #### T ROPI, CDP, LIP, RANGEL, CMPX #### [place] [address] Mason Foreman/Superintendant: Nando Crawley MD Hematocrit (Bld) [Volume fraction] 44.2 % Normal 41-53 [facility] Comment on above: Performed By: #### T ROPI, CDP, LIP, RANGEL, CMPX #### [place] [address] Mason Foreman/Superintendant: Nando Crawley MD Hemoglobin (Bld) [Mass/Vol] 15.4 g/dL Normal 13.5-17.5 [facility] Comment on above: Performed By: #### T ROPI, CDP, LIP, RANGEL, CMPX #### [place] [address] Mason Foreman/Superintendant: Nando Crawley MD Lymphocytes (Bld) [#/Vol] 1.00 10*3/uL Normal 1.0-4.8 [facility] Comment on above: Performed By: #### T ROPI, CDP, LIP, RANGEL, CMPX #### [place] [id number] [place] [address] Mason Foreman/Superintendant: Nando Crawley MD Lymphocytes/100 WBC (Bld) 16 % Low 24-44 [facility] Comment on above: Performed By: #### T ROPI, CDP, LIP, RANGEL, CMPX #### [place] [address] Mason Foreman/Superintendant: Nando Crawley MD MCH (RBC) [Entitic mass] 30.8 pg Normal 26-34 [facility] Comment on above: Performed By: #### T ROPI, CDP, LIP, RANGEL, CMPX #### [place] [address] Mason Foreman/Superintendant: Nando Crawley MD [employer] (RBC) [Mass/Vol] 34.9 g/dL Normal 31-37 [facility] Comment on above: Performed By: #### T ROPI, CDP, LIP, RANGEL, CMPX #### [place] [address] Mason Foreman/Superintendant: Nando Crawley MD MCV (RBC) [Entitic vol] 88.2 fL Normal 80-100 [facility] Comment on above: Performed By: #### T ROPI, CDP, LIP, RANGEL, CMPX #### [place] [address] Mason Foreman/Superintendant: Nando Crawley MD Monocytes (Bld) [#/Vol] 0.30 10*3/uL Normal 0.1-1.2 [facility] Comment on above: Performed By: #### T ROPI, CDP, LIP, RANGEL, CMPX #### [place] [address] Mason Foreman/Superintendant: Nando Crawley MD Monocytes/100 WBC (Bld) 4 % Normal 2-11 [facility] Comment on above: Performed By: #### T ROPI, CDP, LIP, RANGEL, CMPX #### [place] [address] Mason Foreman/Superintendant: Nando Crawley MD Neutrophil (Seg) 78 % High 36-66 [facility] Comment on above: Performed By: #### T ROPI, CDP, LIP, RANGEL, CMPX #### [place] [id number] Mason Foreman/Superintendant: Nando Crawley MD Platelet mean volume (Bld) [Entitic vol] 7.8 fL Normal 6.0-12.0 [facility] Comment on above: Performed By: #### T ROPI, CDP, LIP, RANGEL, CMPX #### [place] [address] Mason Foreman/Superintendant: Nando Crawley MD Platelets (Bld) [#/Vol] 224 10*3/uL Normal 140-450 [facility] Comment on above: Performed By: #### T ROPI, CDP, LIP, RANGEL, CMPX #### [place] [address] Mason Foreman/Superintendant: Nando Crawley MD RBC (Bld) [#/Vol] 5.01 10*6/uL Normal 4.5-5.9 [facility] Comment on above: Performed By: #### T ROPI, CDP, LIP, RANGEL, CMPX #### [place] [address] Mason Foreman/Superintendant: Nando Crawley MD WBC (Bld) [#/Vol] 6.6 10*3/uL Normal 3.5-11.0 [facility] Comment on above: Performed By: #### T ROPI, CDP, LIP, RANGEL, CMPX #### [place] [address] Mason Foreman/Superintendant: Nando Crawley MD Abs.Imm.Granulocyte NOT REPORTED Normal 0.00-0.30 [facility] Comment on above: Performed By: #### T ROPI, CDP, LIP, RANGEL, CMPX #### [place] [address] Mason Foreman/Superintendant: Nando Crawley MD Auto Diff Performed NOT REPORTED Normal [facility] Comment on above: Performed By: #### T ROPI, CDP, LIP, RANGEL, CMPX #### [place] [address] Mason Foreman/Superintendant: Nando Crawley MD Immature granulocytes (Bld) [#/Vol] NOT REPORTED Normal 0 [facility] Comment on above: Performed By: #### T ROPI, CDP, LIP, RANGEL, CMPX #### [place] [address] Mason Foreman/Superintendant: Nando Crawley MD NRBC Automated NOT REPORTED Normal [facility] Comment on above: Performed By: #### T ROPI, CDP, LIP, RANGEL, CMPX #### [place] [address] Mason Foreman/Superintendant: Nando Crawley MD Platelets (Bld) [#/Vol] NOT REPORTED Normal [facility] Comment on above: Performed By: #### T ROPI, CDP, LIP, RANGEL, CMPX #### [place] [id number] Mason Foreman/Superintendant: Nando Crawley MD RBC morphology finding Nom (Bld) NOT REPORTED Normal [facility] Comment on above: Performed By: #### T ROPI, CDP, LIP, RANGEL, CMPX #### [address] [id number] Mason Foreman/Superintendant: Nando Crawley MD WBC Morphology NOT REPORTED Normal [facility] Comment on above: Performed By: #### T JOSE, KUSHAL, OBEY, RANGEL, CMPX #### [facility] [address] [place], [place] [id number] Mason Foreman/Superintendant: Nando Crawley MD CT ABDOMEN PELVIS W IV CONTR Elissa 11-18-2020 CT ABDOMEN PELVIS W IV CONTRAST EXAMINATION: CT OF THE ABDOMEN AND PELVIS WITH CONTRAST 11/17/2020 11:36 pm TECHNIQUE: CT of the abdomen and pelvis was performed with the administration of intravenous contrast. Multiplanar reformatted images are provided for review. Dose modulation, iterative reconstruction, and/or weight based adjustment of the mA/kV was utilized to reduce the radiation dose to as low as reasonably achievable. COMPARISON: None. HISTORY: ORDERING SYSTEM PROVIDED HISTORY: pain TECHNOLOGIST PROVIDED HISTORY: pain Decision Support Exception->Emergency Medical Condition (MA) Reason for Exam: ABD pain epigastric area Acuity: Acute Type of Exam: Initial FINDINGS: Lower Chest: Lung bases demonstrate no focal consolidation or pleural effusion. Coronary artery calcifications noted. Organs: Liver: Unremarkable on this phase of enhancement. Spleen: Unremarkable on this phase of enhancement. Pancreas: Unremarkable on this phase of enhancement. Adrenal glands: Unremarkable on this phase of enhancement. Kidneys: Parapelvic cysts versus caliectasis in the left renal lower pole. Otherwise unremarkable on this phase of enhancement. Suboptimal evaluation for renal calculi due to presence of contrast in the renal collecting systems. Gallbladder: Incompletely distended. GI/Bowel: Evaluation of the bowel and mesentery is limited due to lack of enteric contrast. Visualized esophagus/stomach: Unremarkable given lack of enteric contrast and degree of distension. Small bowel: No dilated small bowel. Large bowel: Trace stranding adjacent to sigmoid colon diverticulum. Appendix: Normal. Pelvis: Bladder is incompletely distended. Prostate and seminal vesicles appear unremarkable. Peritoneum/Retroperi toneum: Adenopathy: Suboptimal evaluation for adenopathy due to lack of enteric contrast. Abdominal aorta: No abdominal aortic aneurysm. Free fluid/air: No free fluid. No free air. Bones/Soft Tissues: Scattered degenerative changes noted in the visualized spine with spondylolisthesis. IMPRESSION: 1. Trace stranding adjacent to sigmoid colon diverticulum. Correlate with presentation for acute uncomplicated sigmoid diverticulitis. 2. No appendicitis or small bowel obstruction. 3. Other findings as described. Interpreted by: Maritza Paris DO Signed by: Maritza Paris DO 11/18/20 Final result Normal [facility] CT HEAD WO CONTRASTon 2020 CT HEAD WO CONTRAST EXAMINATION: CT OF THE HEAD WITHOUT CONTRAST 11/17/2020 6:36 pm TECHNIQUE: CT of the head was performed without the administration of intravenous contrast. Dose modulation, iterative reconstruction, and/or weight based adjustment of the mA/kV was utilized to reduce the radiation dose to as low as reasonably achievable. COMPARISON: None. HISTORY: ORDERING SYSTEM PROVIDED HISTORY: dizziness TECHNOLOGIST PROVIDED HISTORY: dizziness Decision Support Exception->Emergency Medical Condition (MA) Reason for Exam: dizziness Acuity: Acute Type of Exam: Initial FINDINGS: BRAIN/VENTRICLES: There is no acute intracranial hemorrhage, mass effect or midline shift. No abnormal extra-axial fluid collection. The marie-white differentiation is maintained without evidence of an acute infarct. There is no evidence of hydrocephalus. ORBITS: The visualized portion of the orbits demonstrate no acute abnormality. SINUSES: The visualized paranasal sinuses and mastoid air cells demonstrate no acute abnormality. SOFT TISSUES/SKULL: No acute abnormality of the visualized skull or soft tissues. IMPRESSION: No acute intracranial abnormality. Interpreted by: Talon Salas DO Signed by: Talon Salas DO 11/18/20 Final result Normal [facility] Comp Metabolic Pr/rfx MGon 0 11-18-2020 (cont.) Normal [facility] Comment on above: Result Comment: Aver age GFR for 50-59 years old: 93 mL/min/1.73sq m Chronic Kidney Disease: <60 mL/min/1.73sq m Kidney failure: <15 mL/min/1.73sq m eGFR calculated using average adult body mass. Additional eGFR calculator available at: http://[email or web address]/multiple_crcl_2012.htm Performed By: #### T JOSE, KUSHAL, OBEY, RANGEL, CMPX #### [place] [id number] Mason Foreman/Superintendant: Nando Crawley MD Albumin [Mass/Vol] 4.4 g/dL Normal 3.5-5.2 [facility] Comment on above: Performed By: #### T ROPI, CDP, LIP, RANGEL, CMPX #### [place] [address] Mason Foreman/Superintendant: Nando Crawley MD Albumin/Globulin [Mass ratio] 1.3 {ratio} Normal 1.0-2.5 [facility] Comment on above: Performed By: #### T ROPI, CDP, LIP, RANGEL, CMPX #### [place] [address] Mason Foreman/Superintendant: Nando Crawley MD Alkaline Phos 68 U/L Normal 40-129 [facility] Comment on above: Performed By: #### T ROPI, CDP, LIP, RANGEL, CMPX #### [place] [address] Mason Foreman/Superintendant: Nando Crawley MD ALT [Catalytic activity/Vol] 21 U/L Normal 5-41 [facility] Comment on above: Performed By: #### T ROPI, CDP, LIP, RANGEL, CMPX #### [place] [address] Mason Foreman/Superintendant: Nando Crawley MD Anion gap [Moles/Vol] 8 mmol/L Low 9-17 [facility] Comment on above: Performed By: #### T ROPI, CDP, LIP, RANEGL, CMPX #### [place] [address] Mason Foreman/Superintendant: Nando Crawley MD AST [Catalytic activity/Vol] 17 U/L Normal <40 [facility] Comment on above: Performed By: #### T ROPI, CDP, LIP, RANGEL, CMPX #### [place] [id number] Mason Foreman/Superintendant: Nando Crawley MD Bilirubin Ql (U) 0.32 mg/dL Normal 0.3-1.2 [facility] Comment on above: Performed By: #### T ROPI, CDP, LIP, RANGEL, CMPX #### [place] [id number] Mason Foreman/Superintendant: Nando Crawley MD Calcium [Mass/Vol] 9.3 mg/dL Normal 8.6-10.4 [facility] Comment on above: Performed By: #### T ROPI, CDP, LIP, RANGEL, CMPX #### [place] [address] Mason Foreman/Superintendant: Nando Crawley MD Chloride [Moles/Vol] 104 mmol/L Normal 98-107 [facility] Comment on above: Performed By: #### T ROPI, CDP, LIP, RANGEL, CMPX #### [place] [address] Mason Foreman/Superintendant: Nando Crawley MD CO2 [Moles/Vol] 29 mmol/L Normal 20-31 [facility] Comment on above: Performed By: #### T ROPI, CDP, LIP, RANGEL, CMPX #### [place] [address] Mason Foreman/Superintendant: Nando Crawley MD Creatinine [Mass/Vol] 0.92 mg/dL Normal 0.70-1.20 [facility] Comment on above: Performed By: #### T ROPI, CDP, LIP, RANGEL, CMPX #### [place] [id number] Mason Foreman/Superintendant: Nando Crawley MD GFR, Amer >60 Normal >60 [facility] Comment on above: Performed By: #### T ROPI, CDP, LIP, RANGEL, CMPX #### [place] [address] Mason Foreman/Superintendant: Nando Crawley MD GFR,non Amer >60 Normal >60 [facility] Comment on above: Performed By: #### T ROPI, CDP, LIP, RANGEL, CMPX #### [place] [address] Mason Foreman/Superintendant: Nando Crawley MD Glucose [Mass/Vol] 93 mg/dL Normal 70-99 [facility] Comment on above: Performed By: #### T ROPI, CDP, LIP, RANGEL, CMPX #### [place] [address] Mason Foreman/Superintendant: Nando Crawley MD Potassium [Moles/Vol] 4.1 mmol/L Normal 3.7-5.3 [facility] Comment on above: Performed By: #### T ROPI, CDP, LIP, RANGEL, CMPX #### [place] [address] Mason Foreman/Superintendant: Nando Crawley MD Protein [Mass/Vol] 7.7 g/dL Normal 6.4-8.3 [facility] Comment on above: Performed By: #### T ROPI, CDP, LIP, RANGEL, CMPX #### [place] [id number] Mason Foreman/Superintendant: Nando Crawley MD Sodium [Moles/Vol] 141 mmol/L Normal 135-144 [facility] Comment on above: Performed By: #### T ROPI, CDP, LIP, RANGEL, CMPX #### [address] [place] [address] Mason Foreman/Superintendant: Nando Crawley MD Urea nitrogen [Mass/Vol] 18 mg/dL Normal 6-20 [facility] Comment on above: Performed By: #### T ROPI, CDP, LIP, RANGEL, CMPX #### [address] [address] Mason Foreman/Superintendant: Nando Crawley MD BUN/CRE Ratio NOT REPORTED Normal 9-20 [facility] Comment on above: Performed By: #### T ROPI, CDP, LIP, RANGEL, CMPX #### [address] [address] Mason Foreman/Superintendant: Nando Crawley MD Staging: NOT REPORTED Normal [facility] Comment on above: Performed By: #### T ROPI, CDP, LIP, RANGEL, CMPX #### [address] [address] Mason Foreman/Superintendant: Nando Crawley MD Lipaseon 11-18-2020 Lipase [Catalytic activity/Vol] 71 U/L High 13-60 [facility] Comment on above: Performed By: #### T ROPI, CDP, LIP, RANGEL, CMPX #### [place] [address] Mason Foreman/Superintendant: Nando Crawley MD Troponinon 11-18-2020 Troponin I.cardiac [Mass/Vol] 10 ng/L Normal 0-22 [facility] Comment on above: Result Comment: High Sensitivity Troponin values cannot be compared with other Troponin methodologies. Patients with high levels of Biotin oral intake (i.e >5mg/day) may have falsely decreased Troponin levels. Samples collected within 8 hours of biotin intake may require additional information for diagnosis. Performed By: #### T ROPI, CDP, LIP, RANGEL, CMPX #### [facility] [address] [address] Mason Foreman/Superintendant: Nando Crawley MD Troponin I.cardiac [Mass/Vol] NOT REPORTED Normal <0.03 [facility] Comment on above: Performed By: #### T ROPI, CDP, LIP, RANGEL, CMPX #### [address] [address] Mason Foreman/Superintendant: Nando Crawley MD US DUP LOWER EXTREMITY RIGHT VENon 03-30-2020 US DUP LOWER EXTREMITY RIGHT ARAMIS EXAMINATION: DUPLEX VENOUS ULTRASOUND OF THE RIGHT LOWER EXTREMITY, 03/30/2020 9:03 am TECHNIQUE: Duplex ultrasound and Doppler images were obtained of the right lower extremity. COMPARISON: None. HISTORY: ORDERING SYSTEM PROVIDED HISTORY: right calf pain TECHNOLOGIST PROVIDED HISTORY: right calf pain FINDINGS: The visualized veins of the right lower extremity are patent and free of echogenic thrombus. The veins are normally compressible and have normal phasic flow. IMPRESSION: No evidence of DVT in the right lower extremity. Interpreted by: Yohan Martinez MD Signed by: Yohan Martinez MD 03/30/20 Final result Normal [facility] XR FOOT RIGHT (MIN 3 VIEWS)o n 03-30-2020 XR FOOT RIGHT (MIN 3 VIEWS) EXAMINATION: THREE XRAY VIEWS OF THE RIGHT FOOT 03/30/2020 9:08 am COMPARISON: None. HISTORY: ORDERING SYSTEM PROVIDED HISTORY: Pain TECHNOLOGIST PROVIDED HISTORY: Pain Reason for Exam: Pt states his rt lower leg started to cramp yesterday and still has pain to mid calf today. 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 Enthesophyte at the plantar fascial origin likely due to chronic plantar fasciitis. Enthesophyte at the insertion of the Achilles. Midfoot degenerative change. IMPRESSION: Degenerative changes without evidence of acute osseous abnormality. Evidence of chronic plantar fasciitis. Interpreted by: Yohan Martinez MD Signed by: Yohan Martinez MD 03/30/20 Final result Normal [facility] XR TIBIA FIBULA RIGHT (2 VIE WS)on 03-30-2020 XR TIBIA FIBULA RIGHT (2 VIEWS) EXAMINATION: 2 XRAY VIEWS OF THE RIGHT TIBIA AND FIBULA 03/30/2020 9:08 am COMPARISON: None. HISTORY: ORDERING SYSTEM PROVIDED HISTORY: Pain TECHNOLOGIST PROVIDED HISTORY: Pain Reason for Exam: Pt states his rt lower leg started to cramp yesterday and still has pain to mid calf today. Hx of DVT to left leg and heel spur on rt foot Acuity: Acute Type of Exam: Initial Right leg pain. FINDINGS: Bones: No acute fracture. No aggresive oseous lesion. Joints: Alignment of the knee and ankle given the provided views. Tricompartmental degenerative spurring noted about the knee. Soft tissues: No focal soft tissue swelling. IMPRESSION: No acute fracture. Interpreted by: Humphrey Grullon Signed by: Humphrey Grullon 03/30/20 Final result Normal [facility] Vital Signs Date Time Vital Sign Value Performing Clinician Facility 02-20-2024 13:06-0400 Body height 187.96 cm [facility] 02-20-2024 13:06-0400 Body mass index (BMI) [Ratio] 37.2 kg/m2 [facility] 02-20-2024 13:06-0400 Body weight 131.54 kg [facility] 02-20-2024 13:06-0400 Diastolic blood pressure 82 mm[Hg] [facility] 02-20-2024 13:06-0400 Heart rate 81 /min [facility] 02-20-2024 13:06-0400 Systolic blood pressure 125 mm[Hg] [facility] 12-03-2023 13:07-0400 Body height 188 cm Lakshmi Correa MD Work Phone: [facility] 12-03-2023 13:07-0400 Body mass index (BMI) [Ratio] 37.11 kg/m2 Lakshmi Correa MD Work Phone: [facility] 12-03-2023 13:07-0400 Body weight 131.09 kg Lakshmi Correa MD Work Phone: [facility] 12-03-2023 13:07-0400 Diastolic blood pressure 90 mm[Hg] Lakshmi Correa MD Work Phone: [employer] 12-03-2023 13:07-0400 Heart rate 83 /min Lakshmi Correa MD Work Phone: [facility] 12-03-2023 13:07-0400 SaO2% (BldA) [Mass fraction] 97 % Lakshmi Correa MD Work Phone: [facility] 12-03-2023 13:07-0400 Systolic blood pressure 140 mm[Hg] Lakshmi Correa MD Work Phone: [facility] 10-20-2023 11:15-0500 Body height 187.96 cm Jocelyn Lawson Other [employer] Other 10-20-2023 11:15-0500 Body mass index (BMI) [Ratio] 38.1 kg/m2 Jocelyn Lawson Other [employer] Other 10-20-2023 11:15-0500 Body weight 134.63 kg Jocelyn Lawson Other [employer] Other 10-20-2023 11:15-0500 Diastolic blood pressure 92 mm[Hg] Jocelyn Lawson Other [employer] Other 10-20-2023 11:15-0500 Systolic blood pressure 136 mm[Hg] Jocelyn Lawson Other [employer] Other 09-30-2023 15:45-0500 Body height 187.96 cm Jocelyn Lawson Other [employer] Other 09-30-2023 15:45-0500 Body mass index (BMI) [Ratio] 37.18 kg/m2 Jocelyn Lawson Other [employer] Other 09-30-2023 15:45-0500 Body temperature 100.2 [degF] Jocelyn Lawson Other [employer] Other 09-30-2023 15:45-0500 Body weight 131.36 kg Jocelyn Lawson Other [employer] Other 09-30-2023 15:45-0500 Diastolic blood pressure 93 mm[Hg] Jocelyn Lawson Other [employer] Other 09-30-2023 15:45-0500 Systolic blood pressure 137 mm[Hg] Jocelyn Lawson Other [employer] Other 09-25-2023 15:45-0500 Body height 187.96 cm Jocelyn Lawson Other [employer] Other 09-25-2023 15:45-0500 Body mass index (BMI) [Ratio] 37.54 kg/m2 Jocelyn Lawson Other [employer] Other 09-25-2023 15:45-0500 Body weight 132.63 kg Jocelyn Lawson Other [employer] Other 09-25-2023 15:45-0500 Diastolic blood pressure 101 mm[Hg] Jocelyn Lawson Other [employer] Other 09-25-2023 15:45-0500 Systolic blood pressure 134 mm[Hg] Jocelyn Lawson Other [employer] Other 09-19-2023 15:00-0500 Body height 188 cm Castro Restrepo PA-C Work Phone: [facility] 09-19-2023 15:00-0500 Body mass index (BMI) [Ratio] 36.34 kg/m2 Castro Restrepo PA-C Work Phone: [facility] 09-19-2023 15:00-0500 Body weight 128.37 kg Castro BINGHAMC Work Phone: [facility] 09-19-2023 15:00-0500 Diastolic blood pressure 99 mm[Hg] Castro Lauro SMITH Work Phone: [facility] 09-19-2023 15:00-0500 Heart rate 79 /min Castro Lauro SMITH Work Phone: [facility] 09-19-2023 15:00-0500 Systolic blood pressure 157 mm[Hg] Castro Lauro SMITH Work Phone: [facility] 09-11-2023 16:06-0500 Diastolic blood pressure 101 mm[Hg] Bph 1 [facility] 09-11-2023 16:06-0500 Heart rate 97 /min Bph 1 [facility] 09-11-2023 16:06-0500 Systolic blood pressure 154 mm[Hg] Bph 1 [facility] 09-04-2023 12:49-0500 Body mass index (BMI) [Ratio] 37.88 kg/m2 Alf Asher MD Work Phone: [facility] 09-04-2023 12:49-0500 Body weight 133.81 kg Alf Asher MD Work Phone: [facility] 09-04-2023 12:49-0500 Diastolic blood pressure 85 mm[Hg] Alf Asher MD Work Phone: [facility] 09-04-2023 12:49-0500 Heart rate 88 /min Alf Asher MD Work Phone: [facility] 09-04-2023 12:49-0500 SaO2% (BldA) [Mass fraction] 95 % Alf Asher MD Work Phone: [facility] 09-04-2023 12:49-0500 Systolic blood pressure 137 mm[Hg] Alf Asher MD Work Phone: [facility] 07-09-2023 11:15-0400 Body height 187.96 cm Jocelyn Lawson Other [employer] Other 07-09-2023 11:15-0400 Body mass index (BMI) [Ratio] 37.49 kg/m2 Jocelyn Lawson Other [employer] Other 07-09-2023 11:15-0400 Body weight 132.45 kg Jocelyn Lawson Other [employer] Other 07-09-2023 11:15-0400 Diastolic blood pressure 83 mm[Hg] Jocelyn Lawson Other [employer] Other 07-09-2023 11:15-0400 Systolic blood pressure 130 mm[Hg] Jocelyn Lawson Other [employer] Other 03-21-2023 11:45-0400 Body height 187.96 cm Jocelyn Lawson Other [employer] Other 03-21-2023 11:45-0400 Body mass index (BMI) [Ratio] 35.3 kg/m2 Jocelyn Lawson Other [employer] Other 03-21-2023 11:45-0400 Body weight 124.74 kg Jocelyn Lawson Other [employer] Other 03-21-2023 11:45-0400 Diastolic blood pressure 87 mm[Hg] Jocelyn Lawson Other [employer] Other 03-21-2023 11:45-0400 Systolic blood pressure 144 mm[Hg] Jocelyn Lawson Other [employer] Other 01-14-2023 16:00-0400 Body height 187.96 cm Jocelyn Lawson Other [employer] Other 01-14-2023 16:00-0400 Body mass index (BMI) [Ratio] 34.66 kg/m2 Jocelyn Lawson Other [employer] Other 01-14-2023 16:00-0400 Body weight 122.47 kg Jocelyn Lawson Other [employer] Other 01-14-2023 16:00-0400 Diastolic blood pressure 90 mm[Hg] Jocelyn Lawson Other [employer] Other 01-14-2023 16:00-0400 SaO2% (BldA) [Mass fraction] 96 % Jocelyn Lawson Other [employer] Other 01-14-2023 16:00-0400 Systolic blood pressure 136 mm[Hg] Jocelyn Lawson Other [employer] Other 11-27-2022 11:15-0400 Body height 187.96 cm Jocelyn Lawson Other [employer] Other 11-27-2022 11:15-0400 Body mass index (BMI) [Ratio] 34.66 kg/m2 Jocelyn Lawson Other [employer] Other 11-27-2022 11:15-0400 Body weight 122.47 kg Jocelyn Lawson Other [employer] Other 11-27-2022 11:15-0400 Diastolic blood pressure 88 mm[Hg] Jocelyn Lawson Other [employer] Other 11-27-2022 11:15-0400 SaO2% (BldA) [Mass fraction] 97 % Jocelyn Lawson Other [employer] Other 11-27-2022 11:15-0400 Systolic blood pressure 124 mm[Hg] Jocelyn Lawson Other [employer] Other 11-04-2022 11:00-0500 Body height 187.96 cm Jocelyn Lawson Other [employer] Other 11-04-2022 11:00-0500 Body mass index (BMI) [Ratio] 34.41 kg/m2 Jocelyn Lawson Other [employer] Other 11-04-2022 11:00-0500 Body weight 121.56 kg Jocelyn Lawson Other [employer] Other 11-04-2022 11:00-0500 Diastolic blood pressure 78 mm[Hg] Jocelyn Lawson Other [employer] Other 11-04-2022 11:00-0500 SaO2% (BldA) [Mass fraction] 99 % Jocelyn Lawson Other [employer] Other 11-04-2022 11:00-0500 Systolic blood pressure 126 mm[Hg] Jocelyn Lawson Other [employer] Other 08-31-2021 13:00-0500 Body height 187.96 cm Izabel Hansen Other [employer] Other 08-31-2021 13:00-0500 Body mass index (BMI) [Ratio] 37.23 kg/m2 Izabel Jade Other [employer] Other 08-31-2021 13:00-0500 Body temperature 98.6 [degF] Izabel Hansen Other [employer] Other 08-31-2021 13:00-0500 Body weight 131.54 kg Izabel Hansen Other [employer] Other 08-31-2021 13:00-0500 Respiratory rate 18 /min Izabel Hansen Other [employer] Other 08-31-2021 13:00-0500 SaO2% (BldA) [Mass fraction] 97 % Izabel Hansen Other [employer] Other Encounters Encounter Date Encounter Type Care Provider Facility Start: 02-20-2024 End: 02-20-2024 ambulatory [facility] Work Phone: Start: 02-20-2024 End: 02-20-2024 Patient encounter procedure [facility] Work Phone: Start: 02-20-2024 End: 02-20-2024 ambulatory [facility] Start: 02-06-2024 End: 02-06-2024 ambulatory [facility] Start: 01-26-2024 End: 02-07-2024 ambulatory [facility] Start: 01-05-2024 End: 01-05-2024 ambulatory [facility] Start: 12-29-2023 End: 12-29-2023 ambulatory [facility] Start: 12-22-2023 End: 12-22-2023 ambulatory JOCELYN LAWSON [facility] Start: 12-16-2023 End: 01-07-2024 ambulatory [facility] Start: 12-08-2023 Telephone encounter Veronica Ash MA [facility] Med[facility] Management Start: 12-03-2023 End: 12-03-2023 Office outpatient visit 15 minutes Lakshmi Correa MD Work Phone: [facility] Comment on above: Heart palpitations ( Primary Dx); Cardiac arrhythmia, unspecified cardiac arrhythmia type; Hypertension, unspecified type; Palpitations; Chronic mixed headache syndrome Start: 12-03-2023 End: 12-03-2023 ambulatory [facility] Start: 12-02-2023 Telephone encounter Noelle Hale CMA [facility] Start: 12-02-2023 End: 12-08-2023 ambulatory [facility] Start: 11-18-2023 End: 11-18-2023 [facility] Start: 11-18-2023 End: 11-18-2023 Follow-up encounter Daron Spear MD Work Phone: [facility] Medication Therapy Management Comment on above: History of DVT (deep vein thrombosis) (Primary Dx); Antiphospholipid syndrome (CMS-HCC); buttermaker (current) use of anticoagulants Start: 10-31-2023 End: 10-31-2023 Emergency department patient visit JOCELYN LAWSON [facility] Start: 10-24-2023 End: 10-24-2023 [facility] Start: 10-24-2023 End: 10-24-2023 Follow-up encounter Daron Spear MD Work Phone: [facility] Medication Therapy Management Comment on above: History of DVT (deep vein thrombosis) (Primary Dx); Antiphospholipid syndrome (CMS-HCC); buttermaker (current) use of anticoagulants Start: 10-20-2023 End: 11-07-2023 [facility] [employer] Other Start: 10-20-2023 Office outpatient vi sit 15 minutes Jocelyn Lawson [facility] Start: 10-02-2023 End: 10-02-2023 ambulatory [facility] Start: 10-02-2023 End: 10-02-2023 Follow-up encounter Daron Spear MD Work Phone: [facility] Medication Therapy Management Comment on above: History of DVT (deep vein thrombosis) (Primary Dx); Antiphospholipid syndrome (CMS-HCC); buttermaker (current) use of anticoagulants Start: 09-30-2023 End: 09-30-2023 ambulatory Jocelyn Lawson Other [employer] Other Start: 09-30-2023 Office outpatient vi sit 15 minutes Jocelyn Lawson [facility] Start: 09-30-2023 Telephone encounter Cathi Yan CNA [facility] Start: 09-26-2023 End: 09-27-2023 ambulatory REHAB [facility] Start: 09-25-2023 End: 09-25-2023 ambulatory Jocelyn Lulu Other [employer] Other Start: 09-25-2023 Office outpatient vi sit 15 minutes Jocelyn Lawson [facility] Start: 09-25-2023 End: 10-09-2023 ambulatory [facility] Start: 09-24-2023 Telephone encounter Veronica Ash MA [facility] Medication Therapy Management Start: 09-21-2023 End: 09-22-2023 Emergency department patient visit FELIBERTO HARTMAN [facility] Start: 09-19-2023 End: 09-19-2023 Office outpatient new 45 minutes Castro Restrepo PA-C Work Phone: [facility] Comment on above: Chronic mixed headac he syndrome (Primary Dx) Start: 09-19-2023 End: 09-19-2023 ambulatory CASTRO RESTREPO [facility] Start: 09-17-2023 Telephone encounter Vandana Val[facility] Comment on above: NEW PATIENT REFERRAL Start: 09-11-2023 End: 09-11-2023 Follow-up encounter Daron Spear MD Work Phone: [facility] Medication Therapy Management Comment on above: History of DVT (deep vein thrombosis) (Primary Dx); Antiphospholipid syndrome ([facility]); residential (current) use of anticoagulants Start: 09-11-2023 End: 09-11-2023 ambulatory [facility] Start: 09-05-2023 End: 09-05-2023 ambulatory MARKUS [facility] Start: 09-04-2023 End: 09-05-2023 ambulatory JOCELYN LAWSON [facility] Start: 09-04-2023 End: 09-04-2023 Office outpatient new 45 minutes Alf Asher MD Work Phone: [facility] All[facility] Comment on above: Seborrheic dermatiti s (Primary Dx); Chronic rhinitis Start: 08-25-2023 End: 08-25-2023 ambulatory [facility] Start: 07-09-2023 End: 07-09-2023 ambulatory Jocelyn Lawson Other [employer] Other Start: 07-09-2023 Office outpatient vi sit 15 minutes Jocelyn Lawson [facility] Start: 03-21-2023 End: 03-21-2023 ambulatory Jocelyn Lawson Other [employer] Other Start: 03-21-2023 Office outpatient vi sit 15 minutes Jocelyn Lawson [facility] Start: 01-14-2023 End: 01-14-2023 ambulatory Jocelyn Lawson Other [employer] Other Start: 01-14-2023 Office outpatient vi sit 15 minutes Jocelyn Lawson [facility] Start: 11-30-2022 Encounter for genera l adult medical examination without abnormal findings DR JOCELYN LAWSON [facility] Start: 11-27-2022 End: 11-28-2022 Encounter for general adult medical examination without abnormal findings DR JOCELYN LAWSON Facility:[facility]1 Start: 11-27-2022 Office outpatient vi sit 25 minutes Jocelyn Lawson [facility] Start: 11-27-2022 Telephone encounter Jocelyn Lawson [facility] Start: 11-27-2022 End: 11-28-[address] JOCELYN LAWSON Facility:[facility]1 Start: 11-19-2022 End: 11-19-2022 ambulatory Jocelyn Lawson Other [employer] Other Start: 11-19-2022 Telephone encounter Jocelyn Lawson [facility] Start: 11-04-2022 End: 11-04-2022 ambulatory Jocelyn Lawson Other [employer] Other Start: 11-04-2022 Office outpatient vi sit 15 minutes Jocelyn Lawson [facility] Start: 03-21-2022 End: 03-22-2022 ambulatory [facility] Start: 03-21-2022 End: 03-21-2022 Subsequent hospital visit by physician Jocelyn Lawson MD Work Phone: [facility] Start: 02-19-2022 End: 02-20-2022 ambulatory [facility] Start: 01-31-2022 End: 02-03-2022 ambulatory [facility] Start: 01-31-2022 End: 02-02-2022 Subsequent hospital visit by physician Nuc Med 111 [facility] Nuclear Medicine Comment on above: Elevated liver enzym es Start: 01-24-2022 End: 01-27-2022 ambulatory [facility] Start: 01-22-2022 End: 01-23-2022 ambulatory [facility] Start: 01-22-2022 End: 01-22-2022 Subsequent hospital visit by physician Jocelyn Lawson MD Work Phone: [facility] Start: 2022 End: 01-10-2022 ambulatory [facility] Start: 2022 End: 2022 Subsequent hospital visit by physician Jocelyn Lawson MD Work Phone: [facility] Start: 12-07-2021 End: 12-08-[address] JOCELYN LAWSON Facility:[facility]1 Start: 10-17-2021 End: 10-18-2021 ambulatory [facility] Start: 08-31-2021 (URG) Urgent Care Visit Izabel moss [facility] Start: 08-31-2021 End: 08-31-2021 ambulatory Izabel Hansen Other [employer] Other Start: 12-11-2020 End: 12-14-2020 Patient encounter procedure MELLISSA CORREA [facility] Start: 12-11-2020 End: 12-13-2020 Subsequent hospital visit by physician Lillian Patrick Ct Rm SHARMIN [facility] Draw Comment on above: Elevated pancreatic enzyme Start: 11-18-2020 End: 11-18-2020 Emergency department patient visit JOCELYN LAWSON [facility] Start: 03-30-2020 End: 03-30-2020 Emergency department patient visit JOCELYN [facility] Procedures Date Procedure Procedure Detail Performing Clinician Start: 11-18-2023 [facility] Work Phone: Start: 10-24-2023 [facility] Work Phone: Start: 10-02-2023 [facility] Work Phone: Start: 09-11-2023 [facility] Work Phone: Start: 08-25-2023 Follow-up visit Follow-up MARKUS HORTON Start: 01-31-2022 Hepatobil syst imag inc gb w/pharma intervenj Mellissa Correa MD Work Phone: Start: 01-22-2022 Assay of ferritin Stephen Correa MD Work Phone: Start: 01-22-2022 Hepatitis b surf ant ibody hbsab Mellissa Correa MD Work Phone: Start: 01-22-2022 Iaad ia hepatitis b surface antigen Mellissa Correa MD Work Phone: Start: 2022 Assay of amylase Radha Correa MD Work Phone: Start: 2022 Hepatic function panel Mellissa Correa MD Work Phone: Start: 07-02-2021 Adult depression scr eening assessment Alf Asher MD Work Phone: Start: 12-11-2020 Ct abdomen & pelvis w/contrast material Mellissa Correa Work Phone: Start: 12-11-2020 Assay of amylase Michae crissy Correa Work Phone: Start: 12-11-2020 Assay of lipase Mellissa Burns SNAPP' Work Phone: Start: 12-11-2020 Assay of testosterone total Jose Chairez Start: 12-11-2020 Assay of thyroid sti mulating hormone tsh Jose Chairez Start: 12-11-2020 Assay of thyroxine total Jose Chairez Start: 12-11-2020 Assay of triiodothyr onine t3 total tt3 Jose Chairez Start: 12-11-2020 Hepatic function panel Mellissa Correa Work Phone: Start: 03-30-2020 Dup-scan xtr veins unilateral/limited study JOSE CHAIREZ Start: 03-30-2020 Radex foot complete minimum 3 views JOSE CHAIREZ Start: 03-30-2020 Radiologic examinati on tibia & fibula 2 views JOSE CHAIREZ Plan of Treatment Date Care Activity Detail Author Start: 12-02-2024 Adult BMI Screening Adult BMI Screening [facility] Start: 12-02-2024 Tobacco Screening Tobacco Screening [facility] Start: 10-31-2024 Adult BMI Screening Adult BMI Screening [facility] Start: 09-21-2024 Adult BMI Screening Adult BMI Screening [facility] Start: 09-21-2024 Tobacco Screening Tobacco Screening [facility] Start: 09-05-2024 Adult BMI Screening Adult BMI Screening [facility] Start: 09-04-2024 Adult BMI Screening Adult BMI Screening [facility] Start: 09-04-2024 Tobacco Screening Tobacco Screening [facility] Start: 08-23-2024 End: 08-23-2024 Patient encounter procedure 08/23/2024 2:20 PM EST Office Visit [facility] [address] [place] [address] Markus Horton MD [address] [facility] [address] [place] [address] [facility] Start: 05-17-2024 DTaP,Tdap and Td Vaccines (2 - Td or Tdap) DTaP,Tdap and Td Vaccines (2 - Td or Tdap) [facility] Start: 05-17-2024 DTaP/Tdap/Td vaccine (2 - Td or Tdap) DTaP/Tdap/Td vaccine (2 - Td or Tdap) [facility] Start: 05-09-2024 Influenza vaccination Influenza Vaccine [facility] Start: 02-16-[address] [facility] Start: 01-22-2024 End: 01-22-2024 Patient encounter procedure 01/22/2024 2:00 PM EDT Office Visit [facility] [address] [facility] [address] [place] [address] Sonal Cagle MD [address] [facility] [address] [place] [address] [facility] Start: 12-16-2023 End: 12-16-2023 Follow-up encounter 12/16/2023 4:00 PM EDT Follow Up Anticoagulation [facility] Medication Therapy Management [address] [facility] [address] [place] [address] Daron Spear MD [address] [facility] [place] [address] [facility] Therapy Management Start: 12-03-2023 End: 12-03-2023 Patient encounter procedure 12/03/2023 1:30 PM EDT Office Visit [facility] [address] [place] [address] Lakshmi Correa MD [address] [facility] [place] [address] [facility] Start: 12-02-2023 End: 12-02-2023 Follow-up encounter 12/02/2023 4:00 PM EDT Follow Up Anticoagulation [facility] Medication Therapy Management [address] [place] [address] Daron Spear MD [address] [place] [address] [facility] Therapy Management Start: 11-21-2023 End: 11-21-2023 Patient encounter procedure 11/21/2023 3:00 PM EDT Office Visit [facility] [address] [facility] [place] [address] Castro Restrepo, OTILIAC [address] [place] [id number] [facility] Start: 11-18-2023 End: 11-18-2023 Follow-up encounter 11/18/2023 3:45 PM EDT Follow Up Anticoagulation [facility] Medication Therapy Management [address] [place] [address] Daron Spear MD [address] [place] [address] [facility] Start: 10-21-2023 End: 10-21-2023 Follow-up encounter 10/21/2023 3:45 PM EST Follow Up Anticoagulation [facility] Medication Therapy Management [address] [place] [address] Daron Spear MD [address] [place] [address] [facility] Start: 10-02-2023 End: 10-02-2023 Follow-up encounter 10/02/2023 3:45 PM EST Follow Up Anticoagulation [facility] Medication Therapy Management [address] [place] [address] Daron Spear MD [address] [place] [address] [facility] Management Start: 09-26-2023 End: 09-26-2023 Patient encounter procedure 09/26/2023 1:30 PM EST Appointment [facility] Neuro[facility]iology [address] [place] [address] [facility] Start: 09-25-2023 End: 09-25-2023 Follow-up encounter 09/25/2023 4:00 PM EST Follow Up Anticoagulation [facility] Medication Therapy Management [facility] [place] [address] Daron Spear MD [address] [place] [address] [facility] Therapy Management Start: 09-19-2023 End: 09-19-2023 Patient encounter procedure 09/19/2023 3:00 PM EST Office Visit [facility] [address] [facility] [place] [address] Castro Restrepo, SARAH [address] [place] [address] [facility] Start: 09-11-2023 End: 09-11-2023 Follow-up encounter 09/11/2023 4:00 PM EST Follow Up Anticoagulation [facility] Medication Therapy Management [address] [place] [address] Daron Spear MD [address] [place] [address] [facility] Start: 09-05-2023 Subsequent hospital visit by physician 09/05/2023 9:45 PM EST Hospital Encounter [facility] [address] [place] [address] Markus Horton MD [address] [place] [address] [place] [address] [facility] Start: 09-04-2023 Subsequent hospital visit by physician 09/04/2023 1:34 PM EST Hospital Encounter [facility] [address] [facility] [address] [place] [id number] Chronic rhinitis [facility] Comment on above: Chronic rhinitis Start: 05-09-2023 COVID-19 Vaccine ( season) COVID-19 Vaccine ( season) [facility] Start: 05-09-2023 Influenza vaccination Influenza Vaccine [facility] Start: 07-02-2022 Depression Screening Depression Screening [facility] Start: 05-09-[address] [facility] Start: 01-23-2022 End: 01-23-2022 Patient encounter procedure 01/23/2022 Appointment Radiology [facility] Ultrasound Start: 07-16-2021 COVID-19 Vaccine (3 - Booster for Pfizer series) COVID-19 Vaccine (3 - Booster for Pfizer series) [facility] Start: 05-09-2021 Influenza vaccination Flu vaccine (Season Ended) [employer] Work Phone: Start: 2019 Administration of varicella zoster vaccine Zoster (Shingles) Vaccine (1 of 2) [facility] Start: 2019 Screening for malignant neoplasm of colon Colon cancer screen colonoscopy [facility] [employer] Work Phone: Start: 2019 Shingles Vaccine (1 of 2) Shingles Vaccine (1 of 2) [employer] Start: 2014 Screening for malignant neoplasm of colon [employer] Start: 01-10-1988 DTaP/Tdap/Td vaccine (1 - Tdap) DTaP/Tdap/Td vaccine (1 - Tdap) [employer] Start: 1987 Adult BMI Follow Up Plan Adult BMI Follow Up Plan [facility] Start: 1985 COVID-19 Vaccine (1) COVID-19 Vaccine (1) [employer] Phone: Start: 01-10-1984 HIV screening HIV screen [employer] Start: 1981 Depression Screen Depression Screen [employer] Start: 1974 COVID-19 Vaccine (1) COVID-19 Vaccine (1) [employer] End: 01-22-2022 Ptxuc-0-Nljgmrjvxzp w Phenotype [employer] Phone: Comment on above: Once for 1 Occurrences starting 01/23/20 until 01/22/2022 End: 01-22-2022 JOHN Screen with Reflex [employer] Phone: Comment on above: Once for 1 Occurrences starting 01/23/20 until 01/22/2022 End: 01-22-2022 ANTI-JACK KID RY AB [employer] Phone: Comment on above: Once for 1 Occurrences starting 01/23/20 until 01/22/2022 End: 2022 C-reactive protein [employer] Phone: Comment on above: Once for 1 Occurrences starting 01/10/20 until 2022 End: 03-21-2022 Immunoglobulin G Subclasses [facility] [address] [facility] [employer] Phone: Comment on above: Once for 1 Occurrences starting 03/21/20 until 03/21/2022 End: 01-22-2022 MITOCHONDRIAL ANTIBODIES, M2, IGG [employer] Phone: Comment on above: Once for 1 Occurrences starting 01/23/20 until 01/22/2022 End: 09-04-2024 Respiratory allergy panel Respiratory allergy panel Lab Routine Chronic rhinitis 1 Occurrences starting 09/04/2023 until 09/04/2024 [employer] Work Phone: Comment on above: 1 Occurrences starting 09/04/2023 until 09/04/2024 Respiratory allergy panel Respiratory allergy panel Lab Routine Chronic rhinitis 09/04/2023 1:35 PM EST [employer] End: 01-22-2022 Smooth Muscle Antibody Quant [facility] Work Phone: Comment on above: Once for 1 Occurrences starting 01/23/20 until 01/22/2022 End: 2022 Tissue Transglutaminase, IgA [employer] Work Phone: Comment on above: Once for 1 Occurrences starting 01/10/20 until 2022 End: 01-22-2022 Tissue Transglutaminase, IgA [facility] [employer] [facility] Work Phone: Comment on above: Once for 1 Occurrences starting 01/23/20 until 01/22/2022 End: 2022 Tissue Transglutaminase, IgG [facility] [employer] [facility] Work Phone: Comment on above: Once for 1 Occurrences starting 01/10/20 until 2022 End: 01-22-2022 Tissue Transglutaminase, IgG [facility] [employer] [facility] Work Phone: Comment on above: Once for 1 Occurrences starting 01/23/20 until 01/22/2022 Head [facility] XR Lumbar spine 2 or 3 Views [facility] Payers Date Payer Category Payer Unknown [id number] 2021 Unknown [employer] [place] [employer] [id number] 2021-Present [phone] [address] [place] [address] [id number] 2014 Unknown [id number]. [id number] 1969 Unknown [id number] [id number] 1969 Unknown [id number] 2.16.840.1.013498.3.579.2.175 1969 Unknown [id number] 2.16.840.1.859390.3.579.2.175 1969 Unknown [id number] 2.16.840.1.748537.3.579.2.175 1969 Unknown [id number] 2.16.840.1.154865.3.579.2.175 1969 Unknown [id number] 2.16.840.1.222097.3.579.2.176 1969 Unknown [id number] 2.16.840.1.982747.3.579.2.176 1969 Unknown [id number] 2.16.840.1.301090.3.579.2.176 1969 Unknown [id number] 2.16.840.1.730026.3.579.2.176 1969 Unknown [id number] 2.16.840.1.889616.3.579.2.176 1969 Unknown [id number] 2.16.840.1.016319.3.579.2.176 1969 Unknown [id number] 2.16.840.1.551923.3.579.2.176 1969 Unknown [id number] 2.16.840.1.212830.3.579.2.593 1969 Unknown [id number] 2.16.840.1.475842.3.579.2.593 1969 Unknown [id number] 2.16.840.1.346950.3.579.2.1286 1969 Unknown [id number] 2.16.840.1.415723.3.579.2.1286 1969 Unknown [id number] 2.16.840.1.230789.3.579.2.1285 1970 Unknown [id number] 2.16.840.1.725452.3.579.2.1285 1970 Unknown [id number] 2.16.840.1.013234.3.579.2.1285 1970 Unknown [id number] 2.16.840.1.372603.3.579.2.1285 1970 Unknown [id number] 2.16.840.1.698843.3.579.2.1285 1970 Unknown [id number] 2.840.1.541348.3.579.2.1285 1970 Unknown [id number] 2.840.1.619156.3.579.2.1285 1970 Unknown [id number] 2.840.1.401371.3.579.2.1285 1970 Unknown [id number] 2.840.1.991570.3.579.2.1285 1970 Unknown [id number] 2.840.1.987309.3.579.2.1285 1970 Unknown [id number] 2.840.1.017964.3.579.2.1285 1970 Unknown [id number] 2.840.1.764837.3.579.2.1285 1970 Unknown [id number] 2.840.1.033571.3.579.2.1285 1969 Unknown [id number] 2..840.1.991521.3.579.2.1285 1969 Unknown [id number] 2.16.840.1.606409.3.579.2.1285 1970 Unknown [id number] 2.16.840.1.656050.3.579.2.1285 1970 Unknown [id number] 2.16.840.1.996576.3.579.2.1286 1970 Unknown [id number] 2.16.840.1.640995.3.579.2.1286 1970 Unknown [id number] 2.16.840.1.746137.3.579.2.1286 1969 Unknown [id number] 2.16.840.1.997909.3.579.2.6 1970 Unknown [id number] 2.16.840.1.378336.3.579.2.1286 1959 Unknown [id number] 1.2.840.952512.1.13.239.2.7.3. [id number] Unknown MMO [id number] Social History Date Type Detail Facility Start: 11-17-2020 End: 10-14-2022 Tobacco smoking status [facility] Former smoker [facility] End: 11-27-2004 History of tobacco use Current smoker [facility] Phone: End: 11-27-2004 History of tobacco use Cigarette Smoker [facility]: Start: 04-28-2015 End: 11-17-2020 Tobacco use and exposure Never used [facility] Phone: Start: 11-17-2020 End: 12-03-2023 Alcohol intake Current non-drinker of alcohol (finding) [facility] Phone: Start: 1970 Sex Assigned At Not on file [email or web address] Phone: Exposure to SARS-CoV -2 (event) Not sure [facility] Phone: Start: 10-19-2020 End: 09-04-2023 [facility] Start: 10-19-2020 End: 10-14-2022 Cigarettes smoked current (pack per day) - Reported 3 [facility] History of tobacco use Passive smoker [facility] Start: 10-14-2022 Tobacco use and exposure [facility]okeless [facility] End: 09-08-1988 History of tobacco use Chews Tobacco [facility] Adolescent depressio n screening assessment 0 [facility] Start: 1970 Sex Assigned At Male F [facility] Clinical Notes 11-04-2022 to 12-08-2023 Telephone Encounter - Veronica Ash MA - 12/08/2023 11:23 AM EDTTelephone Encounter - Sarina Martínez RPH - 12/08/2023 11:23 AM EDTTelephone Encounter - Veronica Ash MA - 12/08/2023 11:23 AM EDT Note Date & Type Note Facility 12-08-2023 Miscellaneous Notes Patient left a message requesting a call back at [phone]. He is scheduled for a colonoscopy, needs to hold his Warfarin 7 days prior, and needs bridging. Returned call to patient. He reports being scheduled for a Colonoscopy/EGD with Dr. Mellissa Correa with [facility] on 12/22. He was advised to hold warfarin for 7 days prior to procedure and typically bridges for procedures given hx of DVT and APS. He may have 2 doses of Lovenox at home, will have to check with his . He is scheduled for next INR check on 12/15, which is the day he would need to start holding warfarin. He is comfortable with reviewing procedure plans at upcoming appt on 12/16/23. Discussed that procedure will be confirmed with [facility] and that plan will be developed for that date. Lovenox will be sent in advance to [facility] in [facility]. Current weight is 282 lbs. Called [facility] at P: [phone]. Call was transferred to plastic surgery assistant. Left VM for Petrona requesting a call back to confirm procedure and warfarin hold instructions. Erlinda from [facility] called (P: [phone] x [phone]). She states the patient is scheduled for a flexible sigmoidoscopy with Dr. Mellissa Correa on 12/23/23. Per Dr. Horton, patient is to hold his Warfarin 5 days prior and [facility] is to arrange bridging. Erlinda is also faxing over instructions. Fax received from Petrona and scanned to media tab. Tentative bridge plan developed for 5 day warfarin hold and saved to [facility]. Will review with patient at upcoming appt 12/16/23. documented in this encounter [facility] 12-08-2023 Telephone encounter Note Patient left a message requesting a call back at [phone]. He is scheduled for a colonoscopy, needs to hold his Warfarin 7 days prior, and needs bridging. [facility] 12-08-2023 Telephone encounter Note Returned call to patient. He reports being scheduled for a Colonoscopy/EGD with Dr. Mellissa Correa with [facility] on 12/22. He was advised to hold warfarin for 7 days prior to procedure and typically bridges for procedures given hx of DVT and APS. He may have 2 doses of Lovenox at home, will have to check with his . He is scheduled for next INR check on 12/15, which is the day he would need to start holding warfarin. He is comfortable with reviewing procedure plans at upcoming appt on 12/16/23. Discussed that procedure will be confirmed with [facility] and that plan will be developed for that date. Lovenox will be sent in advance to [facility] in [facility]. Current weight is 282 lbs. Called [facility] at P: [phone]. Call was transferred to plastic surgery assistant. Left VM for Petrona requesting a call back to confirm procedure and warfarin hold instructions. [facility] 12-08-2023 Telephone encounter Note Erlinda from [facility] called (P: [phone]). She states the patient is scheduled for a flexible sigmoidoscopy with Dr. Mellissa Correa on 12/23/23. Per Dr. Horton, patient is to hold his Warfarin 5 days prior and [facility]. Erlinda is also faxing over instructions. [facility] 12-08-2023 Telephone encounter Note Fax received from Petrona and scanned to media tab. Tentative bridge plan developed for 5 day warfarin hold and saved to [facility]. Will review with patient at upcoming appt 12/16/23. [facility] 12-03-2023 History of Presen t illness Narrative Damian Arce Date of visit: 12/03/2023 Date of : 1970 Age: 53 y.o. 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 Max Daily Amount: 20 mg dicyclomine (BENTYL) 20 mg tablet Take 1 tablet (20 mg total) by mouth every 6 (six) hours as needed (Abdominal cramping). 20 tablet 0 lisinopriL (PRINIVIL,ZESTRIL) 20 mg tablet Take 1 tablet (20 mg total) by mouth in the morning. metoprolol succinate XL (TOPROL XL) 50 mg 24 hr tablet Take 1 tablet (50 mg total) by mouth in the morning. omeprazole (PriLOSEC) 40 mg capsule TAKE 1 CAPSULE BY MOUTH EVERY DAY 30 MINUTES BEFORE MORNING MEAL FOR 90 DAYS REMERON SOLTAB 45 mg disintegrating tablet Dissolve 1 tablet (45 mg total) on tongue nightly Indications: posttraumatic stress syndrome. 2 simethicone (MYLICON,GAS-X) 125 mg capsule Take 1 capsule (125 mg total) by mouth 4 (four) times a day as needed (Bloating). 28 each 0 warfarin (COUMADIN) 5 mg tablet Indications: prevention of venous thromboembolism recurrence. TAKE ONE AND HALF TO TWO TABLETS BY MOUTH DAILY DIRECTED BY [facility]. 180 tablet 1 metoprolol succinate XL (TOPROL XL) 25 mg 24 hr tablet Take 2 tablets (50 mg total) by mouth in the morning. No current facility-administered medications for this visit. 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 Does report when he eats he will get bloated and then feel like his heart skips a beat more than likely it has a PVCs which she has had previously he has had no exertional chest discomfort lightheadedness syncope or near-syncope Past Medical History: Diagnosis Date ADHD (attention deficit hyperactivity disorder) Allergic rhinitis Antiphospholipid syndrome (CMS-HCC) Arthritis Biliary colic Clotting disorder (CMS-HCC) Antiphospholipid syndrome COVID-19 2021 2020 Deep vein thrombosis (CMS-HCC) Dental disease caps, crowns Depression Diverticulitis of colon Fractures wrist, collar bone GERD (gastroesophageal reflux disease) H/O blood clots Headache Frequently HL (hearing loss) no aides/Tinnitis bilat Obesity Panic disorder PTSD Sinusitis, chronic Sleep apnea CPAP No data recorded No data recorded No data recorded Past Surgical History: Procedure Laterality Date CARDIAC CATHETERIZATION 1995 KNEE ARTHROSCOPY Right 2013 LAPAROSCOPIC CHOLECYSTECTOMY N/A 10/25/2022 Performed by Denis Wynn MD at [facility] 2017 RHINOPLASTY 1994 VASECTOMY 2010 Family History Problem Relation Age of Onset Heart attack Father Coronary artery disease Father Heart attack Maternal Grandfather Social History Socioeconomic History Marital status: Spouse name: Not on file Number of children: Not on file Years of education: Not on file Highest education level: Not on file Occupational History Not on file Tobacco Use Smoking status: Former Packs/day: 3.00 Years: 30.00 Additional pack years: 0.00 Total pack years: 90.00 Types: Cigarettes Quit date: 11/27/2004 Years since quittin.0 Passive exposure: Past Smokeless tobacco: Former Types: Chew Quit date: 1988 Vaping Use Vaping Use: Every day Substances: THC, CBD, uses Occ. for sleep Devices: Pre-filled or refillable cartridge Substance and Sexual Activity Alcohol use: No Drug use: Yes Frequency: 7.0 times per week Types: Marijuana Comment: THC/CBD Sexual activity: Defer Partners: Female Other Topics Concern Caffeine Use No Social History Narrative Not on file Social Determinants of Health Financial Resource Strain: Not on file Food Insecurity: No Food Insecurity (12/03/2023) Hunger Screening Food Insecurity - Worry: Never True Food Insecurity - Inability: Never True Transportation Needs: Not on file Physical Activity: Not on file Stress: Not on file Social Connections: Not on file Interpersonal Safety: Not on file Housing Instability: Not on file Review of Systems Review of Systems Constitutional: Negative. HENT: Positive for hearing loss and tinnitus. Eyes: Negative. Respiratory: Positive for cough. Hematologic/Lymphatic: Negative. Skin: Negative. Musculoskeletal: Positive for back pain. Gastrointestinal: Negative. Neurological: Negative. Psychiatric/Behavioral: Positive for depression. The patient is nervous/anxious. Allergic/Immunologic: Positive for environmental allergies. CARDIOVASCULAR: Please review HPI. Physical Examination General appearance: Alert, oriented and cooperative. In no acute distress. Skin: Warm and dry to touch. Head: Normocephalic, without obvious abnormality, atraumatic. Ears, Nose, Mouth, Throat: Throat clear without erythema or exudate. Dentition intact. Eyes: Conjunctivae unremarkable, EOM intact. Neck: No JVD, No carotid bruit. Neck supple, trachea midline. Respiratory: Clear to auscultation bilaterally, no use of accessory muscles. Cardiovascular: RRR with normal S1 and S2 with no murmurs. Gastrointestinal: Soft, non-tender. Bowel sounds normal. Musculoskeletal: No peripheral edema. Neurologic: Oriented to time, person and place, affect appropriate. No focal/major motor defects noted. Psychiatric: Appropriate mood, memory and judgement. VITAL SIGNS: Ht 188 cm (6' 2 ) Wt 131.1 kg (289 lb) BMI 37.11 kg/m Orders Placed or Reconciled This Encounter Medications metoprolol succinate XL (TOPROL XL) 50 mg 24 hr tablet Sig: Take 1 tablet (50 mg total) by mouth in the morning. amphetamine-dextroamphetamine XR (ADDERALL XR) 20 mg 24 hr capsule Sig: Take 1 capsule (20 mg total) by mouth every morning. Max Daily Amount: 20 mg There are no discontinued medications. IMPRESSIONS/PLAN 1. Cardiac arrhythmia, unspecified cardiac arrhythmia type - Ambulatory referral to Cardiology (Non[facility]) 2. Hypertension, unspecified type - Ambulatory referral to Cardiology (Non[facility]) 3. Palpitations - Ambulatory referral to Cardiology (Non[facility]) 1..Episodes of palpation related to eating more than likely these are PVCs 2.Episodes of atypical chest pains in the past but no recurrence As mentioned these are most likely PVCs. He has had these previously. He has these documented on ECGs from October also. When he was having the ECG he had the same sensation. I would go ahead with the EGD so we can look at his stomach issues and as these get more resolved more than likely has palpitations will go away TODAYS ORDERS No orders of the defined types were placed in this encounter. FOLLOW UP No follow-ups on file. PCP: JOCELYN LAWSON MD Referring Physician: Jocelyn Lawson MD [address] [place] [address] documented in this encounter [facility] 12-03-2023 Instructions Lakshmi Correa MD - 12/03/2023 1:30 PM EDT documented in this encounter [facility] 12-02-2023 Miscellaneous Notes Called patient to remind them to bring their most current copy of their medication list with them to their appt. Patient verbalizes understanding. documented in this encounter [facility] 12-02-2023 Telephone encounter Note Called patient to remind them to bring their most current copy of their medication list with them to their appt. Patient verbalizes understanding. [facility] 11-18-2023 History of Presen t illness Narrative 15 minute [id number] follow-up anticoagulation appointment. INR performed in office per protocol. INR 3.7 (goal range: 2.0-3.0). Patient reports: Taking warfarin dosing as documented. Missed or extra doses of warfarin: No Changes to medications: No Changes to lifestyle (diet / alcohol / smoking / activity): Fewer greens. Appetite slightly reduced due to GI upset and bloating. Recent emergency department visit / hospitalization / health changes / new contraindication to current anticoagulant: No Signs/symptoms of bruising/bleeding or clotting or any intolerable adverse events: No Upcoming procedures: No Anticoagulant prescription needed: No Seen referring provider in the last year Duration of therapy reviewed Assessment: INR slightly supratherapeutic likely a result of GI upset. Plan: Patient instructed to decrease to warfarin 5 mg Tues, 7.5 mg all other days. Check INR in 2 week(s). Patient verbalizes understanding of anticoagulant dosing instructions and information discussed. Dosing regimen, counseling, and follow-up appointment were provided to the patient. Patient reminded to call with questions or any medication changes. Patient instructed to seek medical attention if any major bleeding/bleeding that persists or worsens. Robson Thrasher RPH 11/18/23 1607 documented [facility] History of Presen t illness Narrative 15 minute [id number] follow-up anticoagulation appointment. INR performed in office per protocol. INR 2.1 (goal range: 2.0-3.0). Patient reports: Taking warfarin dosing as documented. Missed or extra doses of warfarin: No Changes to medications: Yes, started metoprolol succinate 50 mg Changes to lifestyle (diet / alcohol / smoking / activity): Couple days of getting green leafy vegetables Recent emergency department visit / hospitalization / health changes / new contraindication to current anticoagulant: No Signs/symptoms of bruising/bleeding or clotting or any intolerable adverse events: No Upcoming procedures: No Anticoagulant prescription needed: No Seen referring provider in the last year Duration of therapy reviewed Assessment: INR is remaining stable in therapeutic range on current warfarin regimen. Plan: Patient instructed to continue warfarin 7.5 mg everyday. Check INR in 4 week(s). Patient verbalizes understanding of anticoagulant dosing instructions and information discussed. Dosing regimen, counseling, and follow-up appointment were provided to the patient. Patient reminded to call with questions or any medication changes. Patient instructed to seek medical attention if any major bleeding/bleeding that persists or worsens. Robson Thrasher Jesenia 10/24/23 1654 documented in this encounter [facility] 10-20-2023 Evaluation note Encounter Date Diagnosis Assessment Notes Oct, Essential (primary) hypertension (ICD-10 - I10) Add lisinopril Encouraged good diet and exercise. Call or come back in 1 month w list of BPs. Discussed stress reduction as well. [employer] Other 01-25-2024 History of Present illness Narrative* Robson Thrasher [facility] - 10/02/2023 3:45 PM EST 15 minute [id number] follow-up anticoagulation appointment. INR performed in office per protocol. INR 3.1 (goal range: 2.0-3.0). Patient reports: Taking warfarin dosing as documented. Missed or extra doses of warfarin: No Changes to medications: Zpak prescribed 3 days ago for cough. He reports some diarrhea which is slightly worse than normal. Changes to lifestyle (diet / alcohol / smoking / activity): Appetite reduced for a couple days but is now approaching baseline. Recent emergency department visit / hospitalization / health changes / new contraindication to current anticoagulant: Yes, ED 1.5 weeks ago for hypertension. Signs/symptoms of bruising/bleeding or clotting or any intolerable adverse events: No Upcoming procedures: No Anticoagulant prescription needed: No Seen referring provider in the last year Duration of therapy reviewed Assessment: INR slightly supratherapeutic likely a result of respiratory infection. Plan: Patient instructed to decrease to warfarin 5 mg today then resume current maintenance dose of7.5 mg daily. Check INR in 2-3 week(s). Patient verbalizes understanding of anticoagulant dosing instructions and information discussed. Dosing regimen, counseling, and follow-up appointment were provided to the patient. Patient reminded to call with questions or any medication changes. Patient instructed to seek medical attention if anymajor bleeding/bleeding that persists or worsens. Robson Thrasher RPH 10/02/23 1601 documented in this [facility]01-23-2024 Evaluation note* Encounter Date Diagnosis Assessment Notes Treatment Notes Treatment Clinical Notes Sep, Bronchitis (ICD-10 - J40) Take antibiotic as directed. If develop wheezing, chest tightness, itching, bad cough, blue skin color, seizures, swelling of face, lips, tongue, or throat report to ED. Sep, Essential (primary) hypertension (ICD-10 - I10) Will increase dose and continue to monitor> Call w BP readings in 2 weeks. [employer] Other 01-23-2024 Miscellaneous Notes* Telephone Encounter - Cathi Yan CNA - 09/30/2023 1:12 PM EST Spoke with patient about results. ----- Message from Sonal Cagle MD sent at 09/30/2023 11:43 AM EST ----- Please let the patient know that I reviewed his VNG. It is normal, meaning that no ear related cause of his dizziness was found. I recommend doing at least 1 hour of physical activity a day to help with balance and dizziness. I also reviewed his allergy and neurology notes. I agree with allergy treatment and headache treatment. As needed follow-up with ENT. I am happy to see the patient back if any other issues or concerns. documented in this [facility]01-23-2024 Telephone encounter Note* Telephone Encounter - Cathi Yan CNA - 09/30/2023 1:12 PM EST Spoke with patient about results. ----- Message from Sonal Cagle MD sent at 09/30/2023 11:43 AM EST ----- Please let the patient know that I reviewed his VNG. It is normal, meaning that no ear related cause of his dizziness was found. I recommend doing at least 1 hour of physical activity a day to help with balance and dizziness. I also reviewed his allergy and neurology notes. I agree with allergy treatment and headache treatment. As needed follow-up with ENT. I am happy to see the patient back if any other issues or concerns. [facility]-18-2024 Evaluation note* Encounter Date Diagnosis Assessment Notes Treatment Notes Treatment Clinical Notes Sep, Essential (primary) hypertension (ICD-10 - I10) Followup in 1 week. Will discuss dizziness testing at that time. Take BP 1-2 x/day at the most. [employer] Other 01-17-2024 Miscellaneous Notes* Telephone Encounter - Veronica Ash MA - 09/24/2023 8:19 AM EST The patient called to r/s his INR appointment from 09/25 to 10/02/23. * Telephone Encounter - Robson Thrasher RPH - 09/24/2023 8:19 AM EST Noted. [facility] [id number] Telephone encounter Note* Telephone Encounter - Veronica Ash MA - 09/24/2023 8:19 AM EST The patient called to r/s his INR appointment from 09/25 to 10/02/23. [facility] [id number] Telephone encounter Note* Telephone Encounter - Robson Thrasher RPH - 09/24/2023 8:19 AM EST Noted. [facility] Work Phone: [phone] History of Present illness Narrative* Castro Restrepo PA-C - 09/19/2023 3:00 PM EST [facility] Office Note 09/18/2023 1:49 PM Patient info: Damian Arce is a 53 y.o. male Account No.: [id number] Acct: : 1970 PCP: JOCELYN LAWSON MD Chief Complaint: Patient, 53 year old right hand dominant male, presents today for initial Neurological evaluation regarding headaches. Referred by Dr. Alton FELIX Damian is present in the office today by himself. HPI: Headache Hx: Onset of headaches was years ago. Headache Characteristics: - Current Frequency: 2 per week, with 3-8 bad HESS's per month - Timing: onset is more often upon waking - Duration: few hours to 1-2 days - Location: frontal - Quality: pressure - Intensity: ranges from moderately-severe - Aura: (-) - Associated sxs.: nausea, mild photophobia - Autonomic sxs.: No associated lacrimation, asymmetric pupil dilation/constriction, scleral injection, ptosis, lateralized nasal congestion, or lateralized forehead sweating - Complicated sxs.: No associated loss of consciousness, confusional episodes/delirium, dysarthria,aphasia, paresthesias, or focal/lateralized weakness Contributing Factors: (-) hx of significant head injury/trauma: (-) hx of NURSE LEADER infection: (-) hx of stroke or cerebrovascular malformation: (-) hx of intracranial mass/tumor/cyst/malformation: (+) hx of anxiety/depression/mood disorder: Caffeine Consumption: - None Family Hx: (+) known family member/s with hx of recurrent HESS/migraines: Mother Dizziness with neck flexion/extension: No Difficulty with gait or recurrent falls: No Sleep: - average duration: --- - snoring: --- - apneic spells: --- - nighttime awakenings: --- - parasomnias: --- - energy level: --- - BMI: 36.34 kg/m2 Not currently using his CPAP Damian does not currently take any HESS/migraine preventative medication. He takes otc analgesics and rests for abortive/symptomatic relief. Current preventative HESS/migraine medication: Preventative med/s previously tried include: Preventative med/s not indicated include: Current abortive/symptomatic relief HESS/migraine medication: Tylenol Abortive/Symptomatic relief med/s previously tried include: Abortive/Symptomatic relief med/s not indicated include: Previous Studies: 09/05/23: Brain MRI with and without contrast - Unremarkable for intracranial pathology Past Medical Hx: See EMR Social Hx: Tobacco: former smoker; quit in 2004 ETOH: none Illicit substances: none Family Hx: Mother: --- Father: CAD Siblings: --- Surgical Hx: See EMR Allergies: See EMR Review of Systems: Constitutional: Negative for fever, chills, sweats, or unintentional weight loss Eyes: Negative HENT: Negative Cardiovascular: Negative for chest pain and palpitations Respiratory: Negative for cough and shortness of breath Gastrointestinal: Negative for nausea, vomiting, abdominal pain and diarrhea Genitourinary: Negative for dysuria, urgency, frequency, or hematuria Musculoskeletal: - OA Skin: Negative for skin rash Neurological: - as noted in the HPI Psychiatric/Behavioral: - ADHD Endocrine: Negative Hem/Onc: - antiphospholipid syndrome Allergy/immunology: Negative The remainder of ROS is negative Vitals: BP: 157/99 HR: 79 Weight: 128.4 kg Physical Exam: General: well groomed, appears stated age Neurological Exam: The patient is awake, alert, and attentive Speech and language are normal Normal affect, with normal orientation and cognition EOMI, PERRL, No gross visual field deficits Face is symmetric, Tongue protrudes midline Palate rises symmetrically with uvula midline Shoulder shrug is strong bilaterally Nose to finger testing is without dysmetria Upper Extremity Drift is (-) Fine motor skills are approximately equal in each hand Tremor: (-) Sensation is intact and symmetric in the extremities bilaterally DTR's are 1-2+ throughout Diaz's sign (-) bilaterally Strength throughout the Upper Extremities is 5/5 Strength throughout the Lower Extremities is 5/5 Muscle Tone throughout the extremities is normal Romberg is (-) Gait is steady with normal base, stride, and bilateral arm swing ASSESSMENT: Damian is a 53 year old right hand dominant male with a hx of obesity, GERD, MU on CPAP, hearing loss, diverticulitis, OA, ADHD, DVT, and antiphospholipid syndrome on chronic anticoagulation who has chronic mixed headache syndrome. PLAN: Start Topiramate with titration to 50 mg BID for HESS/migraine prevention Recommend starting to use his CPAP once again, as untreated MU is known to exacerbate HESS syndromes. HESS log is recommended Identification and avoidance of personal HESS/migraine triggers discussed Trying to stay on a regular sleep and eating schedule, staying well hydrated, and working on stressmanagement to help reduce HESS/migraine frequency discussed Follow up in the office in 2 months Electronically Signed by: Castro Restrepo PA-C 09/28/231951 documented in this encounterBerger Hospital01-10-2024 Miscellaneous Notes* Telephone Encounter - Vandana Carson - 09/17/2023 10:31 AM EST First Attempt Made from [employer]- Left Voicemail New patient referral received. Dx:Chronic tension-type headache, not intractable [G44.229]/ Referred by:Sonal Cagle MD Referred to: Providers patient can see in clinic: CASTRO HUERTA Please contact patient to schedule from referral, Thanks! PLEASE REVIEW PLAN OVER THE PHONE AND ADVISE PATIENT TO BRING UPDATED INSURANCE INFORMATION TO THEIR NEW PATIENT APPOINTMENT * Telephone Encounter - Odette Sanchez - 09/17/2023 10:31 AM EST Please ask the following questions to the new patient that you are schedulin. IS THIS DUE TO AN ACCIDENT? -No 2. IS THIS WORKER'S COMP? PLEASE VERIFY IF THIS IS WORKERS COMP AND DOCUMENT (We do not accept any new workers comp cases) -No 3. WHAT INSURANCE? -[facility] [place] 4. HAVE YOU EVER BEEN SEEN BY A NEUROLOGIST BEFORE? IF YES, WHO AND WHEN? IS THIS A SECOND OPINION? -No 5. PATIENT IS SCHEDULED ON/WITH: -09/19/2023 with Castro Restrepo documented in this encounterBerger [facility]01-10-2024 Telephone encounter Note* Telephone Encounter - Vandana Carson - 09/17/2023 10:31 AM EST First Attempt Made from [facility] New patient referral received. Dx:Chronic tension-type headache, not intractable [G44.229]/ Referred by:Sonal Cagle MD Referred to: Providers patient can see in clinic: CASTRO HUERTA Please contact patient to schedule from referral, Thanks! PLEASE REVIEW PLAN OVER THE PHONE AND ADVISE PATIENT TO BRING UPDATED INSURANCE INFORMATION TO THEIR NEW PATIENT APPOINTMENT [facility]01-10-2024 Telephone encounter Note* Telephone Encounter - Odette Sanchez - 09/17/2023 10:31 AM EST Please ask the following questions to the new patient that you are schedulin. IS THIS DUE TO AN ACCIDENT? -No 2. IS THIS WORKER'S COMP? PLEASE VERIFY IF THIS IS WORKERS COMP AND DOCUMENT (We do not accept any new workers comp cases) -No 3. WHAT INSURANCE? -[facility] [place] 4. HAVE YOU EVER BEEN SEEN BY A NEUROLOGIST BEFORE? IF YES, WHO AND WHEN? IS THIS A SECOND OPINION? -No 5. PATIENT IS SCHEDULED ON/WITH: -09/19/2023 with Castro Restrepo [facility]01-04-2024 History of Present illness Narrative* Robson Thrasher, [facility] - 09/11/2023 4:00 PM EST 15 minute [id number] follow-up anticoagulation appointment. INR performed in office per protocol. INR 4.9 (goal range: 2.0-3.0). Patient reports: Taking warfarin dosing as documented. Missed or extra doses of warfarin: No Changes to medications: No. Changes to lifestyle (diet / alcohol / smoking / activity): Yes, appetite reduced. Activity limited. Recent emergency department visit / hospitalization / health changes / new contraindication to current anticoagulant: Patient reports vertigo off and on since last appointment. Signs/symptoms of bruising/bleeding or clotting or any intolerable adverse events: No Upcoming procedures: Yes, Colonoscopy near future. Date TBD Anticoagulant prescription needed: No Seen referring provider in the last year Duration of therapy reviewed Assessment: INR supratherapeutic likely due to reduced appetite and activity. Plan: Patient to continue to monitor BP at home and discuss with PCP if remaining elevated. Patientinstructed to decrease to 2.5 mg today and reduce maintenance dose to 7.5 mg daily. Check INR in 2 week(s). Patient verbalizes understanding of anticoagulant dosing instructions and information discussed. Dosing regimen, counseling, and follow-up appointment were provided to the patient. Patient reminded to call with questions or any medication changes. Patient instructed to seek medical attention if anymajor bleeding/bleeding that persists or worsens. Robson Thrasher RPH 09/11/23 1626 documented in this encounterBerger Hospital12-30-2023 NoteMR BRAIN W WO CONT Clinical history: Dizziness x3 weeks. Antiphospholipid syndrome. Evaluation for stroke. TECHNIQUE: Multiplanar multisequence imaging of the brain was performed before and after the intravenous administration of 20 mL ProHance gadolinium contrast material. There are no prior MRIs of the brain for comparison. Unenhanced CT the brain from 08/08/2023 is available. FINDINGS: The brain appears within normal limits in morphology and signal characteristics. There is no intracranial mass nor mass effect. Ventricular system appears within normal limits. Basal cisterns and fourth ventricle are patent. There is no restricted diffusion to suggest acute nor subacute infarct. There are no signal abnormalities present to suggest parenchymal nor extra-axial hemorrhage. There is no pathologic parenchymal nor leptomeningeal gadolinium enhancement. Midline structures appear unremarkable; cerebellar tonsils are not low-lying. Orbits are unremarkable. No fluid collections are identified within paranasal sinuses nor mastoid air cells. IMPRESSION: 1. Unremarkable enhanced and unenhanced MRI the brain. Specifically, there are no findings of acutenor remote infarct. Finalized by Sheldon Hurst MD on 09/06/2023 9:25 [facility] 09-04-2023 History of Present illness Narrative* Alf Asher MD - 09/04/2023 1:00 PM EST Images from the original note were not included. HISTORY OF PRESENT ILLNESS: Damian is a 53 y.o. male who presents for new patient evaluation and consultation regarding chronic rhinitis. He was referred by Sonal Cagle MD. PCP: JOCELYN LAWSON MD Allergic rhinitis/conjunctivitis: As a child Damian was sensitized to dust mite and pollens. More recently he has been experiencing sinus pressure, post nasal drip, congestion, dizziness, and headaches for several years and worsening.He experiences these symptoms most often when it is raining. He also notes during fall and spring time he experiences increased symptoms. He takes Claritin and Flonase daily which minimally reduce his symptoms. He also uses nasal saline irrigations. His dizziness and vertigo symptoms are most concerning for him and can hinder him from daily activities. He has not seen neurology but has an evaluation upcoming. He saw Dr. Cagle ENT and she did not report any abnormalities. He had a normal noncontrast head CT and a normal sinus CT. He is frustrated from seeing several doctors and not being able to help his symptoms. He takes Remeron and Adderall for his PTSD and anxiety symptoms. There is no mold or moisture damage in the home. There are 3 dogs in the home. The dogs intermittently enter his bedroom but do not go on his bed. There is no smoke exposure in the home. There is no pest infestation in the home. Skin Concerns: Patient experiences red, flaky skin on his forehead and around his nose. He was previously given a topical ointment for this issue. No prior history of asthma, hives or angioedema, food allergy, drug allergy, hymenoptera allergy, eczema, or recurrent infections. PAST MEDICAL HISTORY: Past Medical History: Diagnosis Date ADHD (attention deficit hyperactivity disorder) Allergic rhinitis Antiphospholipid syndrome (CMS-HCC) Arthritis Biliary colic Clotting disorder (CMS-HCC) Antiphospholipid syndrome COVID-19 2021 2020 Deep vein thrombosis ([facility]) Dental disease caps, crowns Depression Diverticulitis of colon Fractures wrist, collar bone GERD (gastroesophageal reflux disease) H/O blood clots Headache Frequently HL (hearing loss) no aides/Tinnitis bilat Obesity Panic disorder PTSD Sinusitis, chronic Sleep apnea CPAP PAST SURGICAL HISTORY: Past Surgical History: Procedure Laterality Date CARDIAC CATHETERIZATION 1995 KNEE ARTHROSCOPY Right 2013 LAPAROSCOPIC CHOLECYSTECTOMY N/A 10/25/2022 Performed by Denis Wynn MD at [facility]IK 2018 RHINOPLASTY 1995 VASECTOMY 2010 FAMILY HISTORY: Family History Problem Relation Age of Onset Heart attack Father Coronary artery disease Father Heart attack Maternal Grandfather SOCIAL HISTORY: Social History Socioeconomic History Marital status: Spouse name: Not on file Number of children: Not on file Years of education: Not on file Highest education level: Not on file Occupational History Not on file Tobacco Use Smoking status: Former Packs/day: 3.00 Years: 30.00 Additional pack years: 0.00 Total pack years: 90.00 Types: Cigarettes Quit date: 11/27/2004 Years since quittin.7 Passive exposure: Past Smokeless tobacco: Former Types: Chew Quit date: 1988 Vaping Use Vaping Use: Some days Substances: THC, CBD, uses Occ. for sleep Devices: Pre-filled or refillable cartridge Substance and Sexual Activity Alcohol use: No Drug use: Yes Types: Marijuana Comment: THC/CBD Sexual activity: Defer Partners: Female Other Topics Concern Caffeine Use No Social History Narrative Not on file Social Determinants of Health Financial Resource Strain: Not on file Food Insecurity: No Food Insecurity (08/08/2023) Hunger Screening Food Insecurity - Worry: Never True Food Insecurity - Inability: Never True Transportation Needs: Not on file Physical Activity: Not on file Stress: Not on file Social Connections: Not on file Interpersonal Safety: Not on file ALLERGY: Allergies Allergen Reactions Oxycodone-Acetaminophen Nausea And Vomiting Adhesive Rash Penicillin Rash MEDICATIONS Current Outpatient Medications Medication Sig Dispense Refill amphetamine-dextroamphetamine XR (ADDERALL XR) 20 mg 24 hr capsule Take 1 capsule (20 mg total) by mouth in the morning. Indications: attention deficit disorder with hyperactivity. 0 fluticasone propionate (FLONASE) 50 mcg/actuation nasal spray SPRAY 1 SPRAY INTO EACH NOSTRIL EVERYDAY (Patient taking differently: Indications: inflammation of the nose due to an allergy.) 48 mL 4 loratadine (CLARITIN) 10 mg tablet Take 1 tablet (10 mg total) by mouth in the morning. Indications: inflammation of the nose due to an allergy. meclizine (ANTIVERT) 25 mg tablet Take 1 tablet (25 mg total) by mouth 3 (three) times a day as needed for dizziness. 20 tablet 0 MEN'S MULTI-VITAMIN ORAL Take by mouth daily. omeprazole (PriLOSEC) 40 mg capsule TAKE 1 CAPSULE BY MOUTH EVERY DAY 30 MINUTES BEFORE MORNING MEAL FOR 90 DAYS REMERON SOLTAB 45 mg disintegrating tablet Dissolve 1 tablet (45 mg total) on tongue nightly Indications: posttraumatic stress syndrome. 2 warfarin (COUMADIN) 5 mg tablet Indications: prevention of venous thromboembolism recurrence. TAKE ONE AND HALF TO TWO TABLETS BY MOUTH DAILY DIRECTED BY [facility]. 180 tablet 1 hyoscyamine (ANASPAZ,LEVSIN) 0.125 mg tablet TAKE 1 TABLET BY MOUTH EVERY 4H NEEDED FOR 5 DAYS (Patient not taking: Reported on 08/25/2023) ondansetron (ZOFRAN) 4 mg tablet Take 1 tablet (4 mg total) by mouth every 8 (eight) hours as needed for nausea or vomiting. (Patient not taking: Reported on 09/04/2023) 12 tablet 0 ondansetron ODT (ZOFRAN ODT) 4 mg disintegrating tablet Dissolve 1 tablet (4 mg total) on tongue every 8 (eight) hours as needed for nausea or vomiting. (Patient not taking: Reported on 09/04/2023) 10 tablet 0 No current facility-administered medications for this visit. ROS: A comprehensive 10+ review of systems was negative except for symptoms noted in HPI. Additional positives include: None. Physical Exam General appearance: well-nourished, well-hydrated, in NAD Head: No scalp scaling, no scalp rash, no alopecia Neck: No cervical LAD, full neck ROM Eyes: EOMI, no conjunctival injection, no infraorbital darkening, no periorbital edema or rash ENT: Right TM- clear, +light reflex, no effusions, not bulging Left TM- clear, +light reflex, no effusions, not bulging Nose: External nose symmetric, septum midline, no nasal turbinate hypertrophy, normal nasal mucosa,no rhinorrhea, no visible polyps Mouth: No oropharyngeal lesions, normal tonsils CV: Normal rate, regular rhythm, no murmur, 2+ peripheral pulses, cap refill <2s Respiratory: Comfortable WOB, normal RR, no stertor, no stridor, CTAB with good aeration throughoutall lung weber Abdomen: non-distended Skin: Erythema and flaking in nasolabial folds and eyebrow area Neurologic: No focal deficit, normal gait Labs, imaging, and records: I have personally reviewed the labs/imaging below: Results for orders placed or performed in visit on 08/13/23 POCT Protime / INR Result Value Ref Range INR 2.1 (A) 0.8 - 1.2 Assessment/ Plan: 1. Chronic rhinitis - Symptoms consistent with allergic rhinitis, likely with large non-allergic component related to changes in weather and humidity - SPT deferred today due to daily use of mirtazapine, a potent antagonist of H1 receptors - Discussed adding Astelin to regimen and will check RAP to clarify allergic sensitizations - Discussed pt's severe distress at symptoms and inability to get definitive answers and treatments - Pt expressed passive suicidal ideation during today's visit but denies having active suicidal ideation or a plan - I encouraged pt to reach out to his mental health providers if these feelings change or worsen, he agreed to this - [facility] - [place], [place] - Respiratory allergy panel; Future - azelastine (ASTELIN) 137 mcg (0.1 %) nasal spray; Administer 2 sprays into each nostril in the morning and 2 sprays before bedtime. Use in each nostril as directed. Dispense: 30 mL; Refill: 12 2. Seborrheic dermatitis - ketoconazole (NIZORAL) 2 % cream; Apply 1 Application topically in the morning and 1 Application before bedtime. Do all this for 28 days. Dispense: 30 g; Refill: 1 No follow-ups on file. Alf Asher MD [facility] Total time spent was 30 minutes: Preparing to see the patient (e.g., review of tests) Obtaining and/or reviewing separately obtained history Performing a medically appropriate examination and/or evaluation Counseling and educating the patient/family/caregiver Ordering medications, tests, or procedures Documenting clinical information in the electronic or other health record 94916- 15-29 min 17726 -10-19 min 32788 - 30-44 min 03041 - 20-29 min 02540 - 45-59 min [id number] - 30-39 min 28933 - 60-74 min 96459 - 40-54 min Scribe Statement: Scribed for and in the presence of Alf Asher MD by Tori Joiner. I, Alf Asher MD, personally performed the services described in the documentation, as scribed in my presence, and confirm that the documentation is both accurate and complete. Tori Joiner 09/04/23 1321 documented in this encounterHolden [facility] HospitalQuintic12-28-2023 Instructions* Patient Instructions* Tori Joiner - 09/04/2023 1:00 PM EST NONALLERGIC RHINITIS OVERVIEW Rhinitis refers to inflammation of the nasal passages. This inflammation can cause a variety of annoying symptoms, including sneezing, itching, nasal congestion, runny nose, and postnasal drip (the sensation that mucus is draining from the sinuses down the back of the throat). Almost everyone experiences rhinitis at some point during their life. Brief episodes of rhinitis are usually caused by respiratory tract infections with viruses (eg, the common cold). Chronic rhinitis is usually caused by allergies, but it can also occur from overuse of certain drugs, some medical conditions, and other unidentifiable factors. WHAT IS NONALLERGIC RHINITIS? Nonallergic rhinitis is the medical term used to describe the following symptoms when they occur without a known allergic cause for weeks to months at a time for at least one year: ?Sneezing ?Runny nose ?Stuffy nose (congestion) ?Postnasal drip Symptoms are usually present year-round, although they may be worsened by certain weather conditions (eg, those that accompany changes of season). The condition does not usually develop until adulthood. NONALLERGIC RHINITIS TRIGGERS The cause of nonallergic rhinitis is not known. However, many triggers of symptoms are known. Theseinclude irritants, such as tobacco smoke, traffic fumes, strong odors, and perfumes, as well as weather conditions (such as the arrival of a weather front). People with nonallergic rhinitis are not bothered by pollen or furred animals (the common triggers in allergic rhinitis), unless they also happen to have allergic rhinitis. About one-half of all patients with longstanding nasal symptoms have both allergic and nonallergic rhinitis. NONALLERGIC RHINITIS TREATMENT Treatment of nonallergic rhinitis includes trigger avoidance, medications, and/or nasal rinsing or irrigation. Trigger avoidance -- Exposure to tobacco smoke can be reduced if household members stop smoking or smoke only outside of the home. It is also important to avoid smoke exposure in the workplace. Exposure to pollutants and irritants can be reduced by avoiding wood-burning stoves and fireplaces;properly venting other stoves and heaters; and avoiding cleaning agents and household sprays that trigger symptoms. Exposure to strong perfumes and scented products may be more difficult. People who are bothered by these items should avoid using them and may need to request that coworkers, family, or friends do the same. Some workplaces have policies regarding the use of strongly scented personal products. Nasal rinsing and irrigation -- Simply rinsing the nose with a salt water (saline) solution one or more times per day is helpful for many patients with nonallergic rhinitis, as well as for other rhinitis conditions. Nasal rinsing is particularly useful for symptoms of postnasal drainage. Nasal rinsing can be done before use of nasal medication so that the lining is freshly cleansed when the medication is applied. The nose can be rinsed with small amounts of saline by using [id number]-[id number] saline nasal sprays or with larger amounts of saline. The latter technique is called nasal irrigation or nasal lavage (table 1). Nasal sprays are easy to use but do not rinse the nasal passages as thoroughly as nasal irrigation. However, nasal irrigation is less convenient and takes more time. A variety of devices, including syringes, Neti pots, and bottle sprayers, may be used to perform nasal irrigation. Your doctor or pharmacist can recommend a nasal irrigation kit. These are available without a prescription. Medications that worsen symptoms -- Certain medications can cause or worsen nasal symptoms (especially congestion). These include control pills, some drugs for high blood pressure (eg, alpha-blockers and beta-blockers), antidepressants, medications for erectile dysfunction, and some medications for prostatic enlargement. If rhinitis symptoms are bothersome and one of these medications is used, ask the prescriber if the medication could be aggravating the condition. Some patients with nonallergic rhinitis resort to using rhax-yki-nwusqnn nasal sprays containing a nasal decongestant (eg, oxymetazoline or phenylephrine). Although these sprays can give rapid reliefof congestion when used occasionally, the effects lessen if they are used regularly. Over time, many patients become tolerant to their effects. When this occurs, decongestant sprays actually worsen symptoms, causing the nose to swell unless the spray is used. In such instances it may be difficult to discontinue the spray, and to do so, a medical professional may be needed. Medications that may help symptoms -- Daily use of a nasal glucocorticoid (steroid) and/or an antihistamine nasal spray can be helpful for people with nonallergic rhinitis. These medications may be used alone or in combination. Nasal antihistamines -- A prescription nasal antihistamine spray, such as azelastine (eg, Astelin, Astepro), can relieve symptoms of postnasal drip, congestion, and sneezing. These sprays start to work within minutes after use and can be used to treat symptoms after they develop. However, they are most effective when used on a regular basis. The most common side effect of nasal antihistamines is a bad taste in the mouth immediately after use. This can be minimized by keeping the head tilted forward while spraying to prevent the medicine from draining down the throat. The usual dose of azelastine is two sprays in each nostril twice per day. Nasal glucocorticoids (steroids) -- Nasal glucocorticoids (steroids) have been shown to be effective for symptoms of nonallergic rhinitis. Most are available [id number] in the [place] (sample brand names: Flonase Allergy Relief, Flonase Sensimist, Rhinocort Allergy, Nasacort). Some symptom relief may occur on the first day of treatment, although the maximal effect may not benoticeable for days to weeks. For this reason, these agents are most effective when used regularly.Some people are able to use lower doses when symptoms are less severe. Nasal ipratropium -- A runny nose with profuse, watery discharge from the nose (rhinorrhea) can be treated with ipratropium (0.03 percent or 0.06 percent) nasal spray. Ipratropium is the best treatment for gustatory rhinitis. It is available only by prescription. How to use a nasal spray -- Nasal sprays work best when they are used properly and the medication remains in the nose, rather than draining down the back of the throat. Some people find that holding one nostril closed with a finger improves their ability to draw the spray into the upper nose. Medicine that drains into the throat should be spit out, since the medicine is only effective when it remains in the nose. The head should be positioned normally or with the chin slightly tucked. The spray should be directed away from the nasal septum (the cartilage that divides the two sides of the nose). The spray is dispensed and then sniffed in slightly to pull it into the higher parts of the nose. Sniffing too hard will result in the medicine draining down the throat and should be avoided. Several decongestant nasal sprays also are available (see 'Medications that worsen symptoms' above). Examples include oxymetazoline (Afrin) and phenylephrine (Robert-synephrine). Nasal decongestants should not be used for more than two to three days at a time, because they may cause a type of rhinitis called rhinitis medicamentosa. Oral decongestants may increase blood pressure and thus may not be appropriate for people with highblood pressure or other cardiovascular conditions. In addition, oral decongestants can cause nervousness and difficulty sleeping. Men with an enlarged prostate who have difficulty urinating may notice a worsening of this problem when they take decongestants. How long will I need treatment? -- The dose or frequency of medications can be reduced in some patients over time. However, in most patients, symptoms are lifelong, and some medication is usually needed on a daily and long-term basis. [facility]* Encounter Date Diagnosis Assessment Notes Treatment Notes Treatment Clinical Notes Jul, Acute recurrent maxillary sinusitis (ICD-10 - J01.01) Finish antibiotics as prescribed. Use decongestants prn. Jul, Rosacea (ICD-10 - L71.9) 1 month trial of topical medication for new problem. [employer] Other 07-14-2023 Evaluation note* Encounter Date Diagnosis Assessment Notes Treatment Notes Treatment Clinical Notes Mar, Diverticulitis (ICD-10 - K57.92) Finish antibiotics. Attributed it to a lot of trail mix and cheeseburgers that are not normal for him. Recommened bland diet for another week. Mar, Gas pain (ICD-10 - R14.1) Discussed OTC options. If nausea continues, we should refer to GI for further treatment as it is not normal to be nauseated often. Already on PPI. Continue present medications. [employer] Other 05-09-2023 Evaluation note* Encounter Date Diagnosis Assessment Notes Treatment Notes Treatment Clinical Notes January, Left lower quadrant abdominal pain (ICD-10 - R10.32) Will aid in symptom management. January, Gastroesophageal ref lux disease without esophagitis (ICD-10 - K21.9) Pt has been buying OTC prilosec - requests rx. [employer] Other 03-22-2023 Evaluation note* Encounter Date Diagnosis Assessment Notes Treatment Notes Treatment Clinical Notes Nov, Excessive thirst (ICD-10 - R63.1) Pt agrees to labs. Nov, Fatigue, unspecified type (ICD-10 - R53.83) Pt agrees to labs - will call w results. 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 Will fax note, demographics and labs. Nov, Elevated glucose (ICD-10 - R73.09) Will get 3 month average to be complete. Nov, Wellness examination (ICD-10 - Z00.00) [employer] Other 02-27-2023 Evaluation note* Encounter Date Diagnosis Assessment Notes Treatment Notes Treatment Clinical Notes Oct, Sinusitis chronic, sphenoidal (ICD-10 - J32.3) Will obtain CT sinuses and send referral to Dr. Patel. [employer] Other Evaluation note* Diagnosis Elevated liver enzymes Nonspecific elevation of levels of transaminase or lactic acid dehydrogenase (LDH) documented in this encounter [facility] [employer] Mobile Phone: evaluation noteNort StreetOwl Other Evaluation noteNo Information[employer] Other Evaluation note* Diagnosis Seborrheic dermatitis- Primary Unspecified seborrheic dermatitis Chronic rhinitis Chronic rhinitis [facility] Diagnosis History of DVT (deep vein thrombosis)- Primary Antiphospholipid syndrome (CMS-HCC) Primary hypercoagulable state buttermaker (current) use of anticoagulants Long-term (current) use of anticoagulants [facility]* Diagnosis Chronic mixed headache syndrome- Primary Other headache syndromes [facility]* Diagnosis History of DVT (deep vein thrombosis)- Primary Antiphospholipid syndrome (CMS-HCC) Primary hypercoagulable state buttermaker (current) use of anticoagulants Long-term (current) use of anticoagulants documented [facility]* Diagnosis History of DVT (deep vein thrombosis)- Primary Antiphospholipid syndrome (CMS-HCC) Primary hypercoagulable state residential (current) use of anticoagulants Long-term (current) use of anticoagulants documented [facility]* Diagnosis History of DVT (deep vein thrombosis)- Primary Antiphospholipid syndrome (CMS-HCC) Primary hypercoagulable state residential (current) use of anticoagulants Long-term (current) use of anticoagulants documented [facility]* Diagnosis Heart palpitations- Primary Palpitations Cardiac arrhythmia, unspecified cardiac arrhythmia type Hypertension, unspecified type Palpitations Chronic mixed headache syndrome Other headache syndromes [facility]* Diagnosis History of DVT (deep vein thrombosis)- Primary Antiphospholipid syndrome (CMS-HCC) Primary hypercoagulable state [facility]* Diagnosis Onset Date Resolution Status Cheek mass acute Lumbar pain acute Swelling of right side of face [facility] Work Phone: History general Narrative - ReportedNort StreetOwl Other History general Narrative - Reported* Type Description Date Medical History Blood clots Medical History chronic depression Medical History PTSD Medical History anxiety Medical History Lower GI bleed Medical History Colon polyp Medical History Acute deep vein thro mbosis (DVT) of right lower extremity, unspecified vein Medical History Diverticulitis Medical History Chronic nausea Medical History Antiphospholipid syndrome Medical History Gastroesophageal ref lux disease with esophagitis without hemorrhage Medical History Functional diarrhea Medical History Benign paroxysmal vertigo, bilat eral Surgical History rhinoplasty-Deveated Septum Surgical History knee arthroscopy- right and lef t Surgical History cholecystectomy 10/25/2022 Hospitalization History see above [employer] Other InstructionsNot on filedocumented in this encounter [facility] filedocumented in this [facility] filedocumented in this encounter [facility] on filedocumented in this encounter [facility] on filedocumented in this [facility] on filedocumented in this [facility] filedocumented in this [facility] filedocumented in this [facility] Advance Directives No Advanced Directives Records FoundDocuments on File Type Date Recorded Patient Nurse Administrator Expl anation ACP-Advance Directive [facility] Counselor Documents on File Type Date Recorded Patient Nurse Administrator Expl anation ACP-Advance Directive ACP-[facility] Counselor Advance Directive Response Recorded Date/ Time Advance Directives No October 3:27pm Reason for Referral Status Reason Specialty Diagnoses / Procedures Referre d By Contact Referred To Contact Closed Radiology Diagnoses Elevated pancreatic enzyme Procedures CT ABDOMEN PELVIS W IV CONTRAST Additional Contrast? Oral CT ABDOMEN PELVIS W WO CONTRAST Additional Contrast? Oral Mellissa Correa MD [address] [place] [address] Specialty Diagnoses / Procedures Referred By Shekhar t Referred To Contact Radiology Diagnoses Elevated liver enzymes Procedures NM HEPATOBILIARY SCAN W EJECTION FRACTION Mellissa Correa MD [address] [address] Referral ID Status Reason Start Date Expiration Date Visits Re quested Visits Authorized [id number] Closed 01/28/2022 03/14/2022 1 1 Reason *FU 11/22 Dr. Raina Patel - [facility] in [place]. CT sinus is pending. Diagnosis 1 Sinusitis chronic, s phenoidal (J32.3) Referral Organization [facility] Referring Provider First Name Joceyln Referring Provider Last Name Lulu Referring Provider Specialty Family [facility] Referred Organization [facility] Referred Address [address],[place], [place],[address] Referred Provider Specialty Ear, Nose an d Throat Referral Priority Routine General Notes Jenifer Lewis 10:34:28 AM >received today, kofi greenberg, waiting for CT results. referral faxed Jenifer Lewis 11/08/2022 08:42:01 AM >FAXED FIRST ATTEMPT LETTER Jenifer Lewis 11/08/2022 01:53:27 PM >received fax that referral was received, pt not scheduled yet Jenifer Lewis 11/18/2022 08:00:46 AM >faxed second attempt letter Jenifer Lewis 11/19/2022 08:05:40 AM >RECEIVED FAX THAT REFERRAL WAS RECEIVED, BUT NOT SCHEDULED. Clinical Notes Dr. Lena Patel - [facility] in [place]. P: [phone] F: [phone] [address] [place] [address] Assessments Diagnosis Elevated pancreatic enzyme Other nonspecific abnormal serum enzyme levels Summary Purpose Family History No Family History Records Found Relationship Condition Age at Onset Recorded Date/T mark father Heart disease Unknown Diabetes mellitus Unknown Not Specified Malignant neoplasm Unknown Chief Complaint and Reason for Visit Chief Complaint right side face swel ling, jake Reason for Visit Cheek mass Lumbar pain Swelling of right side of face Additional Source Comments Reason for Visit (unrecogniz ed section and content) Status Reason Specialty Diagnoses / Procedures Referre d By Contact Referred To Contact Closed Radiology Diagnoses Elevated pancreatic enzyme Procedures CT ABDOMEN PELVIS W IV CONTRAST Additional Contrast? Oral CT ABDOMEN PELVIS W WO CONTRAST Additional Contrast? Oral Mellissa Correa MD [address] [address] Specialty Diagnoses / Procedures Referred By Shekhar sequeira Referred To Contact Radiology Diagnoses Elevated liver enzymes Procedures NM HEPATOBILIARY SCAN W EJECTION FRACTION Mellissa Correa MD [address] [address] Referral ID Status Reason Start Date Expiration Date Visits Re quested Visits Authorized [id number] Closed 01/28/2022 03/14/2022 1 1 Reason Comments New Patient Specialty Diagnoses / Procedures Referred By Shekhar sequeira Referred To Contact Allergy and Immunology Diagnoses Chronic rhinitis Sonal Cagle MD [address] [facility], [address] [place] [address] [facility] [address] [place] [address] Referral ID Status Reason Start Date Expiration Date V isits Requested Visits Authorized [id number] Pending Review 08/21/2023 08/20/2024 1 1 Reason Onset Date Comments NEW PATIENT REFERRAL 09/17/2023 Reason Comments New Patient Patient presents for New Patient appointment for Headaches. Patient has headaches weekly. States it depends on the weather how bad his headaches Specialty Diagnoses / Procedures Referred By Shekhar sequeira Referred To Contact Neurology Diagnoses Chronic tension-type headache, not intractable Sonal Cagle MD [address] [facility], [facility] [address] [place] [address] 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 PRE OP C [facility] LAWSON Specialty Diagnoses / Procedures Referred By Shekhar sequeira Referred To Contact Cardiology Diagnoses Cardiac arrhythmia, unspecified cardiac arrhythmia type Hypertension, unspecified type Palpitations [facility] [address] [place] [address] Pm [facility] [address] [place] [address] Referral ID Status Reason Start Date Expiration Date Visits Requested Visits Authorized [id number] Pending Review Specialty Services Required 11/05/2023 11/04/2024 1 1 (unrecognized sect ion and content) No Status Records FoundNo Status Records FoundNo Status Records FoundNo Status Records FoundNo Status Records FoundNo Status Records Found INFORMATION SOURCE (unrecogn ized section and content) DATE CREATED AUTHOR 12/14/2020 [facility] DATE CREATED AUTHOR AUTHOR'S ORGANIZ ATION 03/28/2022 [facility] DATE CREATED AUTHOR AUTHOR'S ORGANIZ ATION 12/01/2022 [facility] DATE CREATED AUTHOR AUTHOR'S ORGANIZ ATION 10/02/2023 [facility] DATE CREATED AUTHOR AUTHOR'S ORGANIZ ATION 02/07/2024 [facility] DATE CREATED AUTHOR AUTHOR'S ORGANIZ ATION 02/21/2024 [facility] Care Teams (unrecognized sec tion and content) Industrial Electrician Relationship Specialty Start Date End Date Jocelyn Lawson MD PCP - General 11/17/14 Industrial Electrician Relationship Specialty Start Date End Date Jocelyn Lawson MD PCP - General 11/17/14 Industrial Electrician Relationship Specialty Start Date End Date Jocelyn Lawson MD PCP - General 11/17/14 Industrial Electrician Relationship Specialty Start Date End Date Jocelyn Lawson MD PCP - General 11/17/14 Industrial Electrician Relationship Specialty [place] [address] [place] [address] [id number] PCP - General 10/24/14 Industrial Electrician Relationship Specialty [place] [address] [place] [id number] PCP - General 10/24/14 Industrial Electrician Relationship Specialty [place] [address] [place] [id number] PCP - General 10/24/14 Industrial Electrician Relationship Specialty [place] [address] [place] [id number] PCP - General 09/21/23 Industrial Electrician Relationship Specialty [place] [address] [place] [id number] PCP - General 09/21/23 Industrial Electrician Relationship Specialty Start Date End Date Jocelyn Lawson MD [address] [place] [id number] PCP - General 09/21/23 Industrial Electrician Relationship Specialty Start Date End Date Jocelyn Lawson MD [address] [place] [id number] PCP - General 09/21/23 Industrial Electrician Relationship Specialty Start Date End Date Jocelyn Lawson MD [address] [place] [id number] PCP - General 09/21/23 Industrial Electrician Relationship Specialty Start Date End Date Jocelyn Lawson MD [address] [place] [id number] PCP - General 09/21/23 Industrial Electrician Relationship Specialty Start [place] [address] [place] [id number] PCP - General 09/21/23 Industrial Electrician Relationship Specialty [place] [address] [place] [id number] PCP - General 09/21/23 Team Status: Active Member Role Status Dates Jocelyn Lawson MD Primary Care Provider Active Team Status: Inactive Member Role Status Dates Jocelyn Lawson MD Primary Care Provide r, Attending Provider Active Start: February 20, 2024 End: February 20, 2024 Goals (unrecognized section and content) Goals may be documented in a n alternate section FOR RECORDS PERTAINING TO PATIENTS WHO ARE OR HAVE BEEN ENROLLED IN A CHEMICAL DEPENDENCY/SUBSTANCEABUSE PROGRAM, SOME INFORMATION MAY BE OMITTED. This clinical summary was aggregated from multiple sources. Caution should be exercised in using it in the provision of clinical care. This summary normalizes information from multiple sources, and as a consequence, information in this document may materially change the coding, format and clinical context of patient data. In addition, data may be omitted in some cases. CLINICAL DECISIONS SHOULD BE BASED ON THE PRIMARY CLINICAL RECORDS. [facility] [employer] provides no warranty or guarantee of the accuracy or completeness of information in this document.
== END 2024-02-25 10:50 | disposition home or self-care (01) ==
LOC: US 10:49
PROVIDERS: PCP Family Medicine; Visit Provider Family Medicine
DX: M54.50 Low back pain, unspecified (principal); R22.0 Localized swelling, mass and lump, head; M51.36 Other intervertebral disc degeneration, lumbar region
CPT/HCPCS: 72100; 76536